=== PATIENT | female | born 1960 | race Caucasian/White ===

== ENCOUNTER → 2018-01-11 16:10 | Outpatient (CLI) | payer BC, SELFPAY ==
--- NOTE | 2018-01-11 16:14 | MM_ITS ---
MM Dig screening mamm BI w/CAD ORDERING PHYSICIAN : Brayan Richmond MD PATIENT AGE: 57 years GENDER: Female COMPARISON: December 2016, April 2014, November 2015. INDICATION: ITS.REASON: SCREENING patient does take female hormones. Also significant weight loss since previous study. Previous stereotactic biopsy right breast. Benign. Noncontributory family history TECHNIQUE: Standard CC and MLO images were initially obtained. Additional bilateral nipple profile cc and MLO views also included R2 CAD reviewed. FINDINGS: Moderately dense breast tissue distributed more anteriorly in this breasts the retroareolar region and extending towards upper-outer quadrant.. There is accentuation of breast of remaining fibroglandular elements when compared to previous studies.. This reflects both the interval weight loss and exogenous hormone effect. However there seems to be a similar architecture RIGHT BREAST: Right breast shows no significant new findings. Again the dense breast tissue the retroareolar region appears fairly similar and architecture although is somewhat diffuse accentuated by today.. On metallic marker clip at the medial retroareolar region from previous stereotactic biopsy noted LEFT BREAST:There is relative increased density at the upper outer quadrant left breast. I question a new ovoid area labeled X on MLO view measuring 12 mm height which could be a cyst. Just anterior to this I question there could be another possible ovoid density labeled Y measuring approximately 10 mm size. The latter could be merely overlapping shadow. However there is enough of a change at both area X and Y here to warrant additional spot views and ultrasound left breast to further evaluate... Again the densities here may be exaggerated by the exogenous hormones effect weight loss. Scattered small benign calcifications left breast IMPRESSION: - There is slight increased density of the breast bilaterally which I suspect mainly reflects reflecting exogenous hormone effect along with interval weight loss. Left breast. Additional area of increased density upper-outer quadrant left breast labeled X and Y..- These areas warrant spot view and ultrasound to further evaluate. Question underlying cyst although Could be merely summation shadow of this now denser appearing breast from exogenous hormone effect. But more significant features here need to be excluded Right breast. No new focal findings. Again the diffuse accentuation of glandular elements likely due mainly to the the exogenous hormones Follow-up in one year recommended. BI-RADS Category: 0 Need Additional Imaging Evaluaiton. RECOMMENDED FOLLOW-UP: IMM - IMMEDIATE FOLLOW-UP RECOMMENDED Spot views and ultrasound left breast recommended (A letter has been sent to the patient regarding results of the study.)
== END ==
PROVIDERS: Family Provider Family Medicine; PCP Family Medicine; Visit Provider Family Medicine
DX: Z12.31 Encounter for screening mammogram for malignant neoplasm of breast (principal)
CPT/HCPCS: 77067

== ENCOUNTER → 2018-01-27 12:54 | Outpatient (CLI) | payer BC, SELFPAY ==
--- NOTE | 2018-01-27 12:59 | US_ITS ---
MM Dig mamm DX unilat LT CAD, US breast LT complete INDICATION: No abnormal screening study ORDERING PHYSICIAN: Brayan Richmond MD PATIENT AGE: 57 years COMPARISON: 01/11/2018 and 01/06/2017 TECHNIQUE: Problem-solving views performed along with left breast ultrasound FINDINGS: There is dense fibroglandular tissue in the retroareolar region and outer aspect of the left breast.. No discrete abnormality noted on the cc view. On the MLO view there is an area of increased density in the superior left breast measuring 1.7 x 1.3 cm corresponding to the abnormality noted on the screening exam. This is not well delineated on the MLO view. Left breast ultrasound: No discrete abnormality is evident in the area of the mammographic abnormality.. There is a 5 mm cyst at 9:00 and there are small nodes in the axilla. IMPRESSION: Asymmetric increased density in the superior left breast seen on the MLO view only with no sonographic correlate. I suspect this is merely overlapping fibroglandular tissue in this patient on exogenous hormones and recent 100 pound weight loss. Please correlate with physical exam. If there is no palpable abnormality then, would recommend a short-term mammographic follow-up in 3 months to confirm stability BI-RADS Category: 3 Benign Finding Short Term Follow-up RECOMMENDED FOLLOW-UP: 3M - 3 MONTH FOLLOWUP (A letter has been sent to the patient regarding results of the study.)
== END ==
PROVIDERS: Family Provider Family Medicine; PCP Family Medicine; Visit Provider Family Medicine
DX: R92.8 Other abnormal and inconclusive findings on diagnostic imaging of breast (principal)
CPT/HCPCS: 76641; 77065

== ENCOUNTER → 2018-05-23 13:09 | Outpatient (CLI) | payer BC, SELFPAY ==
--- NOTE | 2018-05-23 13:12 | US_ITS ---
MM Dig mamm DX unilat LT CAD, US breast LT complete INDICATION: Follow-up abnormal mammogram, 6 month follow-up ORDERING PHYSICIAN: Sarah Ahmadi PATIENT AGE: 57 years COMPARISON: 01/27/2018, 01/11/2018, 01/06/2017 TECHNIQUE: Standard imaging is performed along with problem-solving views and left breast ultrasound. FINDINGS: Dense fibroglandular tissue. Asymmetric density once again noted in the superior left breast. There is also asymmetry in the inferior left breast with some calcifications. These areas do appear to compress out as before. There are coarse calcifications in the retroareolar region. The calcifications have benign appearance but have increased in number compared to an older study of 01/06/2017 Left breast ultrasound: There is a 5 mm cyst at 9:00 and a 3 mm cyst in the retroareolar region. No suspicious nodules are evident. No significant change. IMPRESSION: No convincing evidence of malignancy. There does remain asymmetric density in the upper outer left breast and retroareolar region. No discrete mass apparent. Probably benign calcifications BI-RADS Category: 3 Probably Benign Finding Short Term Follow-up RECOMMENDED FOLLOW-UP: 6M - 6 MONTH FOLLOW-UP (A letter has been sent to the patient regarding results of the study.)
== END ==
PROVIDERS: PCP Nurse Practitioner; Visit Provider Nurse Practitioner
DX: N63.0 Unspecified lump in unspecified breast (principal)
CPT/HCPCS: 76641; 77065

== ENCOUNTER 2020-08-24 16:13 | Emergency (ER) | payer BC, SELFPAY ==
[2020-08-24 16:25] VITALS: BP 158/94; PULSE 81; RESP 16; TEMP 36.8; O2SAT 98; BMI 39.3
[2020-08-24 16:37] LABS: Apearance,Urine Clear (Clear); Bilirubin,Urine Negative (Negative); Blood, Urine Negative (Negative); Color,Urine Yellow (Yellow); Glucose,Urine (UA) Negative (Negative); Ketones,Urine Negative (Negative); Protein,Urine Negative (Negative)
[2020-08-24 16:38] LABS: UTC Leukocyte Esterase,Urine Negative (Negative); UTC Nitrate,Urine Negative (Negative); Urobilinogen,Urine 1 EU/dl (0.2)
--- NOTE | 2020-08-24 16:45 | HMH.EDUTC ---
[facility] [place] Clinical Impression: Flank pain Disposition: Still a Patient Condition on Discharge: Good Referrals: Brayan Richmond MD [Primary Care Provider] - Time of Disposition: 16:53 (sent to ed) Medical Decision Making - [place] Inquiry Pt receiving controlled substance: No Vital Signs: 08/24/20 16:25 Temperature 98.3 F Temperature Source Oral Pulse Rate [Right] 81 Respiratory Rate 16 Blood Pressure [Right Arm] 158/94 H Blood Pressure Mean [Right Arm] 115 Blood Pressure Source [Right Arm] Automatic Cuff Blood Pressure Position [Right Arm] Sitting 02 Sat by Pulse Oximetry 98 Oxygen Delivery Method Room Air - Lab Data Lab Results 08/24/20 16:36: Urine Color Yellow, Urine Appearance Clear, Urine pH 7.0, Ur Specific [place] 1.020, Urine Protein Negative, Urine Glucose (UA) Negative, Urine Ketones Negative, Urine Blood Negative, Urine Nitrate Negative, Urine Bilirubin Negative, Urine Urobilinogen 1, Ur Leukocyte Esterase Negative [facility] [place] H[place] - General Chief complaint: [facility] Stated complaint: pain right side of back Time Seen by Provider: 08/24/20 16:46 Mode of Arrival: Ambulatory Source of Information: Patient Limitations: No Limitations Description of Symptoms (Recalled from Triage Doc. by RN): R lower flank pain. pain comes and goes whether pt is moving or stationary. pt states it feels like she is in labor. pain 9/10 HEENT Symptoms (Recalled from RN notes): No Resp Symptoms (Recalled from RN notes): No Skin Symptoms (Recalled from RN notes): No MS Symptoms (Recalled from RN notes): No Functional Status (Recalled from RN notes): na - History of Present Illness Provider Complaint: 60 yr old female presents for rt flank pain, that comes and goes. Pt states pain started on thurs and the pain is sharp. Pt states she can be fine and then it feels like someone is stabbing her and pain is 10/10 but then it will ease up. pt states she went to the chiroprator thinking it was a muscle but did not help. pt states flank area is not tender to palpate. no known injury. pt states she has taken tylenol,motrin and they did not help. denies burning with voiding - Related Data Home Medications Medication Instructions Recorded Confirmed celecoxib 200 mg capsule 200 mg PO DAILY 01/26/19 07/01/19 escitalopram oxalate 20 mg tablet 20 mg PO DAILY 07/09/18 12/12/18 levothyroxine 125 mcg capsule 125 mcg PO DAILY 07/09/18 12/12/18 Previous Rx's Medication Instructions Recorded amoxicillin 500 mg capsule 500 mg PO Q12H 10 Days #20 cap 12/12/18 Allergies Allergy/AdvReac Type Severity Reaction Status Date / Time Penicillins Allergy Unknown LOCAL Verified 08/24/20 16:36 REACTION TO INJECTION - Worker's Comp Is this a Worker's Comp case?: No [facility] History - Hepatitis A Screen Drug use history?: No High risk sexual behaviors?: No History of sexually transmitted infection?: No Currently employed?: No Childcare worker?: No Do you have indoor plumbing?: Yes Do you have electricity?: Yes Attestation statement:: This patient has been screened for Hepatitis A risk factors. I have reviewed the patient's past medical history: Yes Medical History: Reports:: Anxiety, Depression Other Medical History: Reports: Arthritis, Hypothyroidism Laterality Cases: Right: Total Hip Replacement Other Surgeries: Yes: Appendectomy, Bariatric Surgery, Cholecystectomy, Hysterectomy-Total, Thyroidectomy Amputation: No Fractures: No - Social History Smoking Status: Unknown if ever smoked Alcohol Intake: never Substance Use Type: denies use Occupational Status: retired Housing: house Household Members: family - Psychiatric History Pschychiatric History:: Reports:: Anxiety, Depression Family Hx:: Hypertension ROS Obtained: Yes Systems reviewed as appropriate & no additional complaints - Constitutional Constitutional: Reports system reviewed and no additional complaints, except a
[2020-08-24 16:53] VITALS: BP 157/84; PULSE 77; RESP 18; TEMP 37.1; O2SAT 96; BMI 39.5
--- NOTE | 2020-08-24 16:54 | CT_ITS ---
PROCEDURE: CT ABDOMEN PELVIS WO CON CLINICAL INDICATION: R.flank pain Right flank pain COMPARISON: No exams were available for comparison TECHNIQUE: Axial images obtained with sagittal and coronal reformats. All CT scans at the facility use one or more dose reduction, viz: automated exposure control, ma/kV adjustment per patient size (including targeted exams where dose is matched to indication, i.e. head), or iterative reconstruction technique. FINDINGS: LOWER THORAX: No acute finding ABDOMEN & PELVIS: The liver, spleen, adrenal glands, pancreas, and kidneys have an unremarkable unenhanced appearance. Status post cholecystectomy. Moderate amount retained colonic feces. Prior gastric sleeve surgery. No evidence of appendicitis. There is colonic diverticulosis but no evidence of diverticulitis. Artifact is present from right hip prosthesis. There is mild haziness of the central mesenteric fat with a few scattered small lymph nodes nonspecific. Prior hysterectomy. Prior right hip hemiarthroplasty. Scattered small nodes are present in the inguinal region. No acute bony findings. IMPRESSION: 1. Mild haziness of the central mesenteric fat with a few scattered small lymph nodes nonspecific but could be seen with mesenteric adenitis. 2. Colonic diverticulosis without diverticulitis. Dictated by: Andrew Arreaga MD 08/25/2020 08:59 Andrew Arreaga MD in [place] 08/25/2020 08:59
--- NOTE | 2020-08-24 16:58 | HMH.EDGENADL ---
ED Disposition Clinical Impression: Flank pain, Mesenteric adenitis Disposition: Home, Self-Care Condition on Discharge: Good Prescriptions: Dicyclomine HCl [Bentyl 10mg capsule] 10 mg PO Q8HP PRN #30 cap PRN Reason: abdominal pain Transmission Status: Pending to [facility] metroNIDAZOLE [Metronidazole] 500 mg PO TID #21 tab Transmission Status: Pending to [facility] Ketorolac Tromethamine [Toradol 10mg tablet] 10 mg PO Q6H 5 Days #20 tab Transmission Status: Pending to [facility] Referrals: Brayan Richmond MD [Primary Care Provider] - - Critical Care Critical Care Time: No Attestation: On 08/24/20, the high probability of a clinically significant, sudden or life threatening deterioration of the following system(s) required my full and direct attention, intervention and personal management. The time I documented below is in addition to time spent performing reported procedures but includes the following listed in this critical care notation. Medical Decision Making - Medical Records Medical records reviewed: Yes: I reviewed the patient's medical records. - [place] Inquiry Pt receiving controlled substance: No Vital Signs: 08/24/20 16:25 08/24/20 16:53 08/24/20 17:13 Temperature 98.3 F 98.7 F Temperature Source Oral Oral Pulse Rate [Right] 81 77 66 Respiratory Rate 16 18 16 Blood Pressure [Right Arm] 158/94 H 157/84 H 149/77 H Blood Pressure Mean [Right Arm] 115 108 101 Blood Pressure Source [Right Arm] Automatic Cuff Automatic Cuff Automatic Cuff Blood Pressure Position [Right Arm] Sitting Sitting Supine 02 Sat by Pulse Oximetry 98 96 99 Oxygen Delivery Method Room Air Room Air Room Air 08/24/20 17:14 Temperature Temperature Source Pulse Rate [Right] 65 Respiratory Rate 18 Blood Pressure [Right Arm] 162/83 H Blood Pressure Mean [Right Arm] 109 Blood Pressure Source [Right Arm] Automatic Cuff Blood Pressure Position [Right Arm] Supine 02 Sat by Pulse Oximetry 99 Oxygen Delivery Method Room Air - Lab Data Lab results reviewed: Yes: I reviewed the patient's lab results. Lab Results 08/24/20 16:36: Urine Color Yellow, Urine Appearance Clear, Urine pH 7.0, Ur Specific [place] 1.020, Urine Protein Negative, Urine Glucose (UA) Negative, Urine Ketones Negative, Urine Blood Negative, Urine Nitrate Negative, Urine Bilirubin Negative, Urine Urobilinogen 1, Ur Leukocyte Esterase Negative 08/24/20 16:55: WBC 5.9, RBC 4.61, Hgb 13.6, Hct 41.3, MCV 89.6, MCH 29.4, MCHC 32.8, RDW 13.5, Plt Count 250, MPV 8.3, Neut % (Auto) 49.4, Lymph % (Auto) 41.5, [place] % (Auto) 5.1, Eos % (Auto) 3.2, Baso % (Auto) 0.9, Neut # (Auto) 2.9, Lymph # (Auto) 2.5, [place] # (Auto) 0.3, Eos # (Auto) 0.2, Baso # (Auto) 0.1 08/24/20 16:55: Sodium 139, Potassium 4.2, Chloride 108 H, Carbon Dioxide 28, Anion Gap 7.2, BUN 21 H, Creatinine 0.90, Estimated Creat Clear 91, Estimated GFR 64, Est GFR ( Amer) 77, Glucose 103 H, Calcium 9.3 Result diagrams: 08/24/20 16:55 08/24/20 16:55 Orders (Tests/Meds): ED MEDICATIONS Discontinued Medications Generic Name Dose Route Start Last Admin Trade Name Freq PRN Reason Stop Dose Admin Ketorolac Tromethamine 60 mg 08/24/20 16:55 08/24/20 17:16 Ketorolac 60mg/2ml Vial IM 08/24/20 16:56 Not Given ONCE ONE Ketorolac Tromethamine 30 mg 08/24/20 16:58 08/24/20 17:15 Ketorolac 30mg/Ml Vial IV 08/24/20 16:59 30 mg ONCE ONE Administration Orphenadrine Citrate 60 mg 08/24/20 16:55 08/24/20 17:14 Orphenadrine Citrate 60mg/2ml Vial IV 08/24/20 16:56 60 mg ONCE ONE Administration ORDERS Category Date Time Status CT abdomen pelvis wo con Stat Cat Scan 08/24/20 16:54 Taken - CT Data CT Scan: Abdomen, Pelvis Time Received: 18:[address] Reviewed: Yes: I have reviewed the patient's CT results, I have viewed the radiologist's interpretation Preliminary Findings: Abnormal Findings Narrative: multiple subcentimeter mesente
[2020-08-24 17:06] LABS: Basophils # 0.1 K/mm3 (0-0.2); Basophils % 0.9 % (0.1-2.0); Eosinophils # 0.2 K/mm3 (0.0-0.4); Eosinophils % 3.2 % (0.1-12.0); Hematocrit 41.3 % (37.0-47.0); Hemoglobin 13.6 g/dL (12.2-16.2); Lymphocytes # 2.5 K/mm3 (0.7-4.5); Lymphocytes % 41.5 % (10-50); Mean Corpuscular HGB Conc 32.8 g/dL (31.8-35.4); Mean Corpuscular Hemoglobin 29.4 pg (27.0-31.2); Mean Corpuscular Volume 89.6 fl (81-99); Mean Platelet Volume 8.3 fl (7.4-10.4); Monocytes # 0.3 K/mm3 (0.1-1.0); Monocytes % 5.1 % (1.7-9.3); Neutrophils # 2.9 K/mm3 (1.8-7.8); Neutrophils % 49.4 % (37.0-80.0); Platelet Count 250 K/mm3 (142-424); Red Blood Count 4.61 M/mm3 (4.20-5.40); Red Cell Distribution Width 13.5 % (11.5-17.5); White Blood Count 5.9 K/mm3 (4.8-10.8)
[2020-08-24 17:11] LABS: Chloride 108 mmol/L (98-107)
[2020-08-24 17:12] LABS: Potassium 4.2 mmoL/L (3.5-5.1); Sodium 139 mmol/L (136-145)
[2020-08-24 17:13] VITALS: BP 149/77; PULSE 66; RESP 16; O2SAT 99
[2020-08-24 17:14] VITALS: BP 162/83; PULSE 65; RESP 18; O2SAT 99
[2020-08-24 17:14] LABS: Blood Urea Nitrogen 21 mg/dl (7-17); Creatinine Clearance Estimated 91 mL/min (50-200); Estimated Glomerular Filt Rate 64 ml/min (>60); GFR (African American) 77 ML/MIN (>60)
[2020-08-24 17:15] LABS: Anion Gap 7.2 mEq/L (5-15); Calcium 9.3 mg/dl (8.4-10.2); Carbon Dioxide 28 mmol/L (22.0-30.0); Glucose 103 mg/dl (74-100)
[2020-08-24 18:49] VITALS: BP 133/86; PULSE 61; RESP 16; TEMP 37.1; O2SAT 96
== END 2020-08-24 18:49 | disposition home or self-care (01) ==
LOC: UTC 16:19 → ER 16:47
PROVIDERS: Nurse Practitioner Family; Emergency Provider Emergency Medicine; PCP Family Medicine
DX: I88.0 Nonspecific mesenteric lymphadenitis (principal); F41.8 Other specified anxiety disorders; E03.9 Hypothyroidism, unspecified; Z88.0 Allergy status to penicillin; Z96.641 Presence of right artificial hip joint
CPT/HCPCS: 74176; 80048; 81003; 85025; 96374; 96375; 99283; J2405

== ENCOUNTER → 2020-11-06 08:22 | Outpatient (CLI) | payer BC, SELFPAY ==
--- NOTE | 2020-11-06 08:24 | MM_ITS ---
PROCEDURE INFORMATION: Exam: MG Screening 3D Mammography Exam date and time: 11/06/2020 8:24 AM Age: 60 years old Clinical indication: Screening mammogram TECHNIQUE: Imaging protocol: Screening tomosynthesis and 2D mammography including computer-aided detection (CAD) when performed. COMPARISON: 1. MG DXLT MM Dig mamm DX unilat LT CAD 05/23/2018 1:49 PM 2. MG DXLT MM Dig mamm DX unilat LT CAD 01/27/2018 1:18 PM 3. MG SCBI MM Dig screening mamm BI w/CAD 01/11/2018 4:16 PM 4. MG DMSB DIG MAMM-SCREEN JOURDAN W/CAD 01/06/2017 3:44 PM FINDINGS: MAMMOGRAPHY: Breast composition: The breast tissue is heterogeneously dense, which may obscure small masses. Mass: None. Architectural distortion: No new or suspicious architectural distortion. Calcifications: No new or suspicious calcifications are present Asymmetric density: No new or suspicious asymmetric density is present Skin thickening: None. Axillary adenopathy: None. IMPRESSION: No mammographic evidence of malignancy. Recommend annual screening mammography unless otherwise clinically indicated. ASSESSMENT: BI-RADS category 1: Negative
== END ==
PROVIDERS: PCP Family Medicine; Visit Provider Family Medicine
DX: Z12.31 Encounter for screening mammogram for malignant neoplasm of breast (principal)
CPT/HCPCS: 77063; 77067

== ENCOUNTER → 2022-07-25 08:00 | Outpatient (CLI) | payer BC, SELFPAY ==
[2022-07-25 08:11] LABS: Microscopic, Urine URINE MICROSCOPIC (MICROSCOPIC)
[2022-07-25 09:57] LABS: Appearance,Urine CLEAR (Clear); Basophils # 0.1 K/mm3 (0-0.2); Basophils % 1.5 % (0.1-2.0); Bilirubin,Urine Negative (Negative); Blood, Urine Negative (Negative); Color,Urine YELLOW (Yellow); Eosinophils # 0.2 K/mm3 (0.0-0.4); Eosinophils % 4.2 % (0.1-12.0); Glucose,Urine (UA) Negative (Negative); Hemoglobin 13.8 g/dL (12.2-16.2); Ketones,Urine Negative (Negative); Leukocyte Esterase,Urine TRACE (Negative); Lymphocytes # 1.8 K/mm3 (0.7-4.5); Lymphocytes % 37.1 % (10-50); Mean Corpuscular HGB Conc 32.2 g/dL (31.8-35.4); Mean Corpuscular Hemoglobin 29.5 pg (27.0-31.2); Mean Corpuscular Volume 91.3 fl (81-99); Mean Platelet Volume 8.2 fl (7.4-10.4); Monocytes # 0.3 K/mm3 (0.1-1.0); Monocytes % 5.2 % (1.7-9.3); Neutrophils # 2.5 K/mm3 (1.8-7.8); Nitrate,Urine Negative (Negative); PH,Urine 6.5 (5.0-8.5); Platelet Count 277 K/mm3 (142-424); Protein,Urine Negative (Negative); Urobilinogen,Urine 0.2 EU/dl (0.2); White Blood Count 4.8 K/mm3 (4.8-10.8)
[2022-07-25 10:12] LABS: Bacteria,Urine Trace /lpf
[2022-07-25 10:16] LABS: Hemoglobin A1C 5.1 % (4.0-6.0)
[2022-07-25 10:17] LABS: Alanine Aminotransferase 19 U/L (12-78); Albumin Level 4.2 g/dl (3.5-5.0); Albumin/Globulin Ratio 1.7 (1.1-1.8); Alkaline Phosphatase 60 U/L (38-126); Anion Gap 7.1 mEq/L (5-15); Aspartate Amino Transferase 22 U/L (14-36); Bilirubin,Total 0.5 mg/dl (0.2-1.3); Blood Urea Nitrogen 20 mg/dl (7-17); Calcium 8.8 mg/dl (8.4-10.2); Carbon Dioxide 31 mmol/L (22.0-30.0); Chloride 106 mmol/L (98-107); Chol/HDL Ratio 3.7 (1-3.5); Cholesterol 170 mg/dl (140-200); Estimated Glomerular Filt Rate 101 ml/min (>60); GFR (African American) 122 ML/MIN (>60); Globulin 2.5 g/dL (1.3-3.2); Glucose 86 mg/dl (74-100); HDL Cholesterol 46 mg/dl (40-60); Potassium 4.1 mmoL/L (3.5-5.1); Sodium 140 mmol/L (136-145); Total Protein,Serum 6.7 g/dl (6.3-8.2); Triglycerides 109 mg/dl (30-150); VLDL Cholesterol 22 mg/dL (0-40)
[2022-07-25 10:20] LABS: Erythrocyte Sedimentation Rate 14 mm/hr (0-30)
[2022-07-25 10:32] LABS: Direct LDL Cholesterol 90.69 mg/dL (100-129)
[2022-07-25 10:48] LABS: Thyroid Stimulating Hormone 1.39 uIU/mL (0.465-4.68)
== END ==
PROVIDERS: PCP Nurse Practitioner Family; Visit Provider Nurse Practitioner Family
DX: Z00.00 Encounter for general adult medical examination without abnormal findings (principal); E03.9 Hypothyroidism, unspecified; Z13.1 Encounter for screening for diabetes mellitus; M19.90 Unspecified osteoarthritis, unspecified site; E66.9 Obesity, unspecified; Z68.41 Body mass index [BMI] 40.0-44.9, adult; Z13.220 Encounter for screening for lipoid disorders; Z76.89 Persons encountering health services in other specified circumstances; Z79.899 Other long term (current) drug therapy
CPT/HCPCS: 36415; 80053; 80061; 81001; 83036; 84443; 85025; 85651; 86140

== ENCOUNTER → 2022-07-30 14:50 | Outpatient (CLI) | payer BC, SELFPAY ==
--- NOTE | 2022-07-30 14:53 | CA_ITS ---
APPROVED REPORT EXAM: Comprehensive 2D, Doppler, and color-flow Echocardiogram [employer]: Racquel Ureña RVT Ht: 5 ft 2 in Wt: 223lbs BSA: 2.00 BP: 120/80 mmHg Indications: SOA,FAY,PRE-OP,OBESITY TDS-PT BODY HABITUS 2D Dimensions LVOT 2.24 cm (M/F) 1.5-2.5 LA Volume 20.40 mL LA Volume Index 10.20 mL/m2 (M/F) 16-34 M-Mode Dimensions RVDd 2.93 cm (0.9-2.6) LA Diam 3.62 cm (1.9-4.0) LVDd 4.85 cm (3.5-5.7) Ao Diam 3.71 cm (2.0-3.7) LVDs 3.44 cm (3.5-5.7) IVSd 1.32 cm (0.6-1.1) PWd 0.60 cm (0.6-1.1) EF (Teich) 55.70% FS 29.10% EDV (Teich) 110.20 mL TAPSE 2.04 (<1.7) ESV (Teich) 48.80 mL LV Diastology E Decel Time 270.00 (160-240 msec) E/A Ratio 0.8 MED E' 5.70 (< 7 cm/sec) E'/MED E' Ratio 13.18 (>14) LAT E' 9.10 (<10 cm/sec) E/LAT E' Ratio 8.25 (>14) Aortic Valve AO Peak GR. 6.10 mmHg Mitral Valve MV E Max Osvaldo. 75.00 (40-130 cm/s) MV A Velocity 99.00 (40-130 cm/s) E/A Ratio 0.76 MV Decel. Time 270.00 (160-240 ms) MV PHT 79.00 ms Pulmonary Valve PV Peak Velocity 53.00 (50-150 cm/s) Tricuspid Valve TR P. Velocity 254.00 cm/s RAP Estimate 10.00 mmHg RVSP 35.80 mmHg Left Ventricle Left atrium is mildly enlarged, left ventricle is normal size mild concentric left ventricular hypertrophy, estimated ejection fraction 55% with no regional wall motion abnormality, grade 1 diastolic dysfunction seen without tissue Doppler evidence of raise left atrial pressure. Right Ventricle Right atrium and right ventricle are mildly enlarged with normal contractility. Aortic Valve Aortic valve is minimally thickened and calcified without aortic stenosis or aortic insufficiency. Mitral Valve Mitral valve is grossly normal, there is trace mitral regurgitation. Tricuspid Valve Tricuspid valve grossly normal, there is trace tricuspid regurgitation, calculated right ventricular systolic pressure 36 mmHg. Pulmonic Valve Pulmonic valve is poorly visualized. Great Vessels Aortic root is normal size. Inferior vena cava is poorly visualized. Pericardium No significant pericardial effusion noted. Conclusion 1. Mild biatrial enlargement, normal left ventricular size, estimated ejection fraction 55% with no regional wall motion abnormality, grade 1 diastolic dysfunction seen without tissue Doppler evidence of raise left atrial pressure. 2. Mildly enlarged right ventricle with normal contractility. 3. Thickened and calcified aortic valve without aortic stenosis aortic insufficiency. 4. Trace mitral and tricuspid regurgitation, calculated right ventricular systolic pressure 36 mmHg. 5. No significant pericardial effusion noted. 6. Inferior vena cava is poorly visualized. Electronically signed by : Kee Kearns MD 07/31/2022 11:24:50
== END ==
LOC: RT 14:53
PROVIDERS: PCP Nurse Practitioner Family; Visit Provider Nurse Practitioner Family
DX: G47.33 Obstructive sleep apnea (adult) (pediatric) (principal)
CPT/HCPCS: 93306

== ENCOUNTER → 2022-08-05 08:05 | Outpatient (CLI) | payer BC, SELFPAY ==
--- NOTE | 2022-08-05 08:05 | XR_ITS ---
FINAL REPORT TECHNIQUE: Bone densitometry calculations of the lumbar spine, right forearm and left hip were obtained. CLINICAL HISTORY: screening FINDINGS: DEXA BONE DENSITY AXIAL SKELETON Using L1-4, the bone mineral density of the spine is 0.943 g/cm2, corresponding to T-score of -0.9. Using the left hip, the bone mineral density of the femoral neck is 0.633 g/cm2, corresponding to a T-score of -1.9. Using the right forearm, the bone mineral density of the distal 1/3 is 0.497 g/cm2, corresponding to a T-score of -3.3. NOTE: T-score: Standard deviation compared with peak bone mass of young adult mean. *Following the recommendations of the International Society of Bone Densitometry, classification of hip BMD is based on the lower of two T-scores; total hip or femoral neck. IMPRESSION: Diminished bone mineral density of the distal 1/3 of the right forearm consistent with osteoporosis. Diminished bone mineral density of the left hip consistent with osteopenia. FRAX 10 year fracture risk is 1.1% for a hip fracture and 8.8% for a major osteoporotic fracture. Normal bone mineral density of the lumbar spine. Reviewed, Interpreted and Dictated by Jeet Gale III, MD Transcribed by Teressa Yu Authenticated and [facility]
--- NOTE | 2022-08-05 08:05 | MM_ITS ---
PROCEDURE INFORMATION: Exam: MG Bilateral Screening 3D Mammography Exam date and time: 08/05/2022 8:06 AM Age: 62 years old Clinical indication: Screening mammogram TECHNIQUE: Imaging protocol: Bilateral Screening tomosynthesis and 2D mammography including computer-aided detection (CAD) when performed. COMPARISON: 1. MG MM DIG SCREENING MAMM BI W/CAD 11/06/2020 8:23 AM 2. MG DXLT MM Dig mamm DX unilat LT CAD 05/23/2018 1:49 PM 3. MG DXLT MM Dig mamm DX unilat LT CAD 01/27/2018 1:18 PM 4. MG SCBI MM Dig screening mamm BI w/CAD 01/11/2018 4:16 PM FINDINGS: MAMMOGRAPHY: Breast composition: There are scattered areas of fibroglandular density. Mass: None. Architectural distortion: No new or suspicious architectural distortion. Calcifications: No new or suspicious calcifications are present Asymmetric density: No new or suspicious asymmetric density is present Skin thickening: None. Axillary adenopathy: None. IMPRESSION: No mammographic evidence of malignancy. Recommend annual screening mammography unless otherwise clinically indicated. ASSESSMENT: BI-RADS category 1: Negative
== END ==
PROVIDERS: PCP Nurse Practitioner Family; Visit Provider Nurse Practitioner Family
DX: Z12.31 Encounter for screening mammogram for malignant neoplasm of breast (principal); Z78.0 Asymptomatic menopausal state; Z13.820 Encounter for screening for osteoporosis
CPT/HCPCS: 77063; 77067; 77080

== ENCOUNTER → 2022-08-20 06:11 | Outpatient (CLI) | payer BC, SELFPAY ==
--- NOTE | 2022-08-20 | CA_ITS ---
APPROVED REPORT Exam: Pharmacologic Technologist: Raquel Garcia, Ht: 5 ft 2 in Wt: 228 lbs BSA: 2.02 m2 HR: 64 bpm BP: 138/73 mmHg Rhythm: NSR, normal Medical History Medications: Levothyroxine,,,,, Lexapro,,,,, Tylenol,,,,, CeleBREX,,,,, Contrave,,,,, Stress Test Details Test: LEXISCAN HR Resting HR: 69 bpm Max Heart Rate (APMHR): 157.917355 bpm Max HR Achieved: 102 bpm Target HR (85% APMHR): 133.461377 bpm % of APMHR: 64.97 Recovery HR: 84 bpm BP Resting BP: 138/73 mmHg Max BP: 138/73 mmHg Recovery BP: 118.0/63.0 mmHg ECG Resting ECG: NSR, normal Clinical Exercise duration: 04:00 min Highest Stage Achieved: Exercise capacity: 1.0 METs Stress ECG Conclusion During lexiscan pt experinced mild SOA, no CP noted. No arrhythmias noted. No significant ST changes. Unremarkable lexiscan stress. Myoview images reported separately. Test Summary REST . . . . . . . Sitting REST 04:52 . . 69 . 138/ 73 . . Stage 1 01:00 . . 93 . . . . Stage 2 01:00 . . 99 . . . . Stage 3 01:00 . . 94 . 130/ 65 . . Stage 4 01:00 . . 93 . 126/ 61 . Stop exercise at 04:00 RECOVERY 01:00 . . 86 . . . . RECOVERY 02:00 . . 84 . 118/ 63 . . RECOVERY 03:00 . . 82 . 127/ 63 . . RECOVERY 03:17 . . 84 . 127/ 63 . . Electronically signed by : Kee Kearns MD 08/21/2022 08:48:39
--- NOTE | 2022-08-20 06:11 | CT_ITS ---
FINAL REPORT TECHNIQUE: Thin section axial CT images of the chest were obtained with contrast. 3D reformatted images were also obtained. This study was performed with techniques to keep radiation doses as low as reasonably achievable (ALARA). Individualized dose reduction techniques using automated exposure control or adjustment of mA and/or kV according to the patient''s size were employed. CLINICAL HISTORY: abnormal echo, enlarged Rt side of heart. 0 chest complaints. Nonsmoker. COMPARISON: None FINDINGS: There is no evidence of pulmonary embolism. There is no evidence of thoracic aortic aneurysm or dissection. There is no evidence of mediastinal or hilar mass or adenopathy. There are borderline sized bilateral axillary lymph nodes of uncertain significance, favor reactive. There is a 5 mm right lower lobe noncalcified nodule. There are several other smaller bilateral pulmonary nodules. No localized inflammatory process is seen within the lungs. Limited images of the upper abdomen demonstrate postoperative changes from gastric sleeve. There are postoperative changes from cholecystectomy. IMPRESSION: No evidence of pulmonary embolism. Small lung nodules, nonspecific. Consider follow-up chest CT in 12 months. Reviewed, Interpreted and Dictated by Jeet Gale III, MD Transcribed by Ale Dash Authenticated and [facility]
--- NOTE | 2022-08-20 06:11 | NM_ITS ---
APPROVED REPORT Exam: Nuclear Stress Test Indication: chest pain..short of breath..palpitations..fatigue Patient Location: Outpatient Stress Tech: Raquel [place] Tech:SANDRA Ch RT(R)(N) Ht: 5 ft 2 in Wt: 227 lbs Bra Size: 2x HR: 69 bpm BP: 138/73 mmHg BSA: 2.02 m2 TID: 1.30 BMI: 41.5 History: chest pain..short of breath..palpitations..fatigue Procedure: Patient received 0.4 mg of intravenous Lexiscan, resting heart rate 69 bpm, resting blood pressure 138/73 mmHg, with Lexiscan maximum heart rate achieved was 102 bpm which is Less than 85 % of the maximum predicted heart rate and blood pressure was 138/73 mmHg. With Lexiscan, patient denied any complaint of chest pain. Electrocardiogram Resting electrocardiogram shows sinus rhythm nonspecific ST-T changes, with Lexiscan less than 1.[address] segment depression noted from the baseline EKG. The EKG portion of the Lexiscan is nondiagnostic. Cardiac Stress and Resting SPECT Images: Cardiac Stress and Resting SPECT images were obtained using technetium 99m Myoview 31.0 mCi stress and 10.23 mCi at rest. Gated SPECT analysis of segmental wall motion and calculation of the ejection fraction also done. Prone images were also obtained. Cardiac stress and rest SPECT and show mild fixed defect in the anterior wall with normal contractility in the gated SPECT is likely secondary to soft tissue attenuation, no reversible ischemia, there is transient ischemic dilatation of the left ventricle noted which appears to be artifactual. Computer derived ejection fraction is 54% with no regional wall motion abnormality, right ventricle is normal size and contractility. Conclusion: 1. The EKG portion of the Lexiscan is nondiagnostic. 2. No obvious scintigraphic evidence of reversible ischemia seen, a fixed defect in the anterior wall is likely secondary to soft tissue attenuation. Computer derived ejection fraction is 54% with no regional wall motion abnormality, right ventricle is normal size and contractility. 3. Likely normal Lexiscan Myoview study. Electronically signed by : Kee Kearns MD 08/21/2022 08:50:55
== END ==
LOC: RAD 06:11
PROVIDERS: PCP Nurse Practitioner Family; Visit Provider Nurse Practitioner Family
DX: R06.00 Dyspnea, unspecified (principal); R93.1 Abnormal findings on diagnostic imaging of heart and coronary circulation
CPT/HCPCS: 71275; 78452; 93017; A9502; J2785; Q9967

== ENCOUNTER → 2022-11-10 07:52 | Outpatient (CLI) | payer BC, SELFPAY | PROVIDERS: PCP Nurse Practitioner Family; Visit Provider Internal Medicine Pulmonary Disease | DX: R06.02 Shortness of breath (principal); R91.8 Other nonspecific abnormal finding of lung field | CPT/HCPCS: 94060; 94618; 94726; 94729; 94762 ==

== ENCOUNTER 2022-11-23 15:12 | Emergency (ER) | payer BC, SELFPAY ==
[2022-11-23] VITALS (8 sets, daily range): BP systolic 132–150; BP diastolic 72–83; PULSE 64–71; RESP 14–19; TEMP 36.7–37; O2SAT 96–99; BMI 39.6
--- NOTE | 2022-11-23 15:15 | ECG_ITS ---
APPROVED REPORT Exam: Resting ECG HR:79 bpm ECG Measurements Heart Rate 79 AXES LA 149 P 31 QRSd 102 QRS 37 QT 370 T 58 QTc 405 Conclusion SINUS RHYTHM NONSPECIFIC ST & T-WAVE ABNORMALITY BORDERLINE ECG UNCONFIRMED REPORT Electronically signed by : Brayan Workman MD 11/24/2022 20:10:14
--- NOTE | 2022-11-23 15:39 | XR_ITS ---
FINAL REPORT CLINICAL HISTORY: Precordial chest pain COMPARISON: [facility] CT PE 08/20/2022 FINDINGS: Two views of the chest were obtained. The heart size and pulmonary vascularity are within normal limits. The mediastinum is normal. No acute pulmonary abnormality is identified. There is no pneumothorax. The bony thorax is intact. IMPRESSION: No active cardiopulmonary disease. Reviewed, Interpreted and Dictated by Jeet Gale III, MD Transcribed by Ale Dash Authenticated and [facility]
[2022-11-23 16:04] LABS: Basophils % 0.4 % (0.1-2.0); Chloride 102 mmol/L (98-107); Eosinophils # 0.3 K/mm3 (0.0-0.4); Eosinophils % 5.7 % (0.1-12.0); Hematocrit 32.6 % (37.0-47.0); Hemoglobin 10.7 g/dL (12.2-16.2); Lymphocytes # 0.9 K/mm3 (0.7-4.5); Lymphocytes % 18.7 % (10-50); Mean Corpuscular HGB Conc 32.8 g/dL (31.8-35.4); Mean Corpuscular Hemoglobin 29.9 pg (27.0-31.2); Mean Corpuscular Volume 91.2 fl (81-99); Mean Platelet Volume 8.6 fl (7.4-10.4); Monocytes # 0.3 K/mm3 (0.1-1.0); Monocytes % 6.3 % (1.7-9.3); Neutrophils # 3.5 K/mm3 (1.8-7.8); Platelet Count 234 K/mm3 (142-424); Red Blood Count 3.58 M/mm3 (4.20-5.40); Red Cell Distribution Width 13.2 % (11.5-17.5); Sodium 139 mmol/L (136-145)
[2022-11-23 16:07] LABS: Blood Urea Nitrogen 10 mg/dl (7-17); Creatinine Clearance Estimated 89 mL/min (50-200); Estimated Glomerular Filt Rate 101 ml/min (>60); GFR (African American) 122 ML/MIN (>60)
[2022-11-23 16:08] LABS: Anion Gap 10.9 mEq/L (5-15); Calcium 8.3 mg/dl (8.4-10.2); Carbon Dioxide 29 mmol/L (22.0-30.0); Glucose 106 mg/dl (74-100)
--- NOTE | 2022-11-23 16:08 | HMH.EDGENADL ---
Discharge Plan Disposition Patient Disposition: Home, Self-Care Condition: Fair Chief Complaint: Chest Pain Prescriptions Prescriptions: No Action celecoxib [Celebrex] 200 mg capsule 200 mg PO DAILY acetaminophen [Tylenol Arthritis Pain] 650 mg tablet extended release 650 mg PO Q8H furosemide [Lasix] 20 mg tablet 20 mg PO DAILY Qty: 30 5RF cholecalciferol (vitamin D3) 10 mcg (400 unit) tablet 800 unit PO DAILY calcium carbonate [Calcium 600] 600 mg calcium (1,500 mg) tablet 1,200 mg PO DAILY escitalopram oxalate [Lexapro] 20 mg tablet 20 mg PO DAILY Qty: 90 1RF levothyroxine 125 mcg tablet 125 mcg PO DAILY Qty: 90 1RF acyclovir 400 mg tablet 400 mg PO BID Qty: 60 0RF Contrave 8-90 mg tablet extended release See Rx Instructions .ROUTE .COMPLEX Qty: 120 0RF Dose Instruction: TAKE 2 TABLETS BY MOUTH TWICE DAILY Rx Instructions: TAKE 2 TABLETS BY MOUTH TWICE DAILY Referrals Follow up/Referrals: Rosalva Horn APRN [Primary Care Provider] - See instructions Clinical Impressions Clinical Impression: Chest pain, Acute hypokalemia Instructions Patient Instructions: DI for Atypical Chest Pain Discharge ED Provider: Satinder Lomeli General Adult HPI General Chief complaint: Chest Pain Stated complaint: chest pain Time Seen by Provider: 11/23/22 16:08 Mode of Arrival: Wheelchair Source of Information: Patient Limitations: No Limitations Description of Symptoms (Recalled from ER Triage Doc. by RN): pt to the ED from her PT appointment complaining on left anterior chest pain that raidiates down her arm and sudden on set of SOB. History of Present Illness HPI narrative: This 62-year-old female who just recently had left hip surgery and presents today with an episode of acute onset of shortness of breath as well as left-sided chest pain. Patient said the pain in her chest was worse with deep inspiration. Patient also complaining of swelling in her left proximal thigh. No fevers or chills no cough or hemoptysis. Related Data Home Medications Medication Instructions Recorded Confirmed celecoxib 200 mg capsule (Celebrex) 200 mg PO DAILY 07/09/18 11/10/22 acetaminophen 650 mg 650 mg PO Q8H 08/25/22 11/10/22 tablet,extended release (Tylenol Arthritis Pain) calcium carbonate 600 mg calcium 1,200 mg PO DAILY osteoporosis 08/25/22 11/10/22 (1,500 mg) tablet (Calcium) cholecalciferol (vitamin D3) 10 800 unit PO DAILY osteoporosis 08/25/22 11/10/22 mcg (400 unit) tablet Previous Rx's Medication Instructions Recorded escitalopram oxalate 20 mg tablet 20 mg PO DAILY #90 tabs 07/28/22 (Lexapro) levothyroxine 125 mcg tablet 125 mcg PO DAILY #90 tabs 07/28/22 furosemide 20 mg tablet (Lasix) 20 mg PO DAILY #30 tabs 08/13/22 acyclovir 400 mg tablet 400 mg PO BID #60 tabs 10/31/22 naltrexone 8 mg-bupropion 90 mg See Rx Instructions .Route 11/23/22 tablet,extended release (Contrave) .COMPLEX #120 tabs Allergies Allergy/AdvReac Type Severity Reaction Status Date / Time Penicillins Allergy Unknown LOCAL Verified 11/10/22 10:23 REACTION TO INJECTION [facility] Disclaimer: The information contained in this section may have been updated after the patient was seen, as this information can be updated by other users. Medical History Arthritis BMI 40.0-44.9, adult Conjunctivitis Dyspnea Dyspnea on exertion Encounter for screening for osteoporosis Establishing care with new doctor, encounter for Flank pain History of asthma Hypothyroid Mesenteric adenitis MRSA infection 2015 abdomen Multiple pulmonary nodules Overactive bladder Rheumatic fever Right heart enlargement Right tibial fracture repaired 2011 Scarlet fever Shortness of breath Sleep apnea Sleep apnea URI (upper respiratory infection) Surgical History
[2022-11-23 16:09] LABS: Potassium 2.9 mmoL/L (3.5-5.1)
[2022-11-23 16:20] LABS: Troponin I < 0.01 ng/ml (0.00-0.034)
[2022-11-23 17:59] LABS: D-Dimer 1.54 ug/mL (0.0-0.5)
[2022-11-23 18:00] LABS: INR 0.93 (0.9-1.1); Prothrombin Time 10.1 seconds (10.1-12.5)
--- NOTE | 2022-11-23 18:08 | CT_ITS ---
PROCEDURE INFORMATION: Exam: CTA Chest With Contrast Exam date and time: 11/23/2022 6:27 PM Age: 62 years old Clinical indication: Shortness of breath; Patient HX: PT just had left hip replaced 4 days ago and today at SOB and left arm pain; Additional info: Post op, SOB TECHNIQUE: Imaging protocol: Computed tomographic angiography of the chest with contrast. Exam focused on the arteries. 3D rendering (Not supervised by radiologist): MIP and/or 3D reconstructed images were created by the technologist. Radiation optimization: All CT scans at this facility use at least one of these dose optimization techniques: automated exposure control; mA and/or kV adjustment per patient size (includes targeted exams where dose is matched to clinical indication); or iterative reconstruction. Contrast material: ISOVUE; Contrast volume: 70 ml; Contrast route: INTRAVENOUS (IV); REPORTING DATA: Count of CT and Cardiac NM exams in prior 12 months: This patient has received [address] and 0 known cardiac nuclear medicine studies in the 12 months prior to the current study. COMPARISON: CT ANGIO CHEST PE PROTOCOL 08/20/2022 9:18 AM FINDINGS: Pulmonary arteries: Normal. No pulmonary emboli. Aorta: Regions of atherosclerotic vascular calcification involving the aortic arch. Lungs: Previously demonstrated juxtapleural 5 mm noncalcified pulmonary nodule faintly identified on the current study secondary to motion artifact. Pleural spaces: Unremarkable. No pneumothorax. No pleural effusion. Heart: Unremarkable. No cardiomegaly. No pericardial effusion. Coronary arteries: Coronary artery calcification. Lymph nodes: Unremarkable. No enlarged lymph nodes. Gallbladder and bile ducts: Cholecystectomy. Stomach and bowel: The gastric sleeve. Colonic diverticulosis. No evidence of diverticulitis.. Bones/joints: Unremarkable. No acute fracture. Soft tissues: Unremarkable. Other findings: Evidence of prior granulomatous disease. IMPRESSION: 1. No evidence of acute intrapulmonary abnormality. 2. Evidence of prior granulomatous disease. 3. Persistent noncalcified juxtapleural 5 mm pulmonary nodule. Findings suboptimally visualized secondary to motion artifact.
[2022-11-23 20:10] LABS: Troponin I < 0.01 ng/ml (0.00-0.034)
== END 2022-11-23 20:26 | disposition home or self-care (01) ==
PROVIDERS: Emergency Provider Emergency Medicine; PCP Nurse Practitioner Family
DX: R07.9 Chest pain, unspecified (principal); E87.6 Hypokalemia; M79.603 Pain in arm, unspecified; R06.02 Shortness of breath; E03.9 Hypothyroidism, unspecified; J45.909 Unspecified asthma, uncomplicated; I51.7 Cardiomegaly
CPT/HCPCS: 36415; 71045; 71275; 80048; 84484; 85025; 85378; 85610; 85730; 93005; 93041; 99285; Q9967

== ENCOUNTER → 2022-11-25 08:23 | Outpatient (CLI) | payer BC, SELFPAY ==
[2022-11-25 09:21] LABS: Basophils % 0.3 % (0.1-2.0); Eosinophils # 0.3 K/mm3 (0.0-0.4); Eosinophils % 7.8 % (0.1-12.0); Hematocrit 31.7 % (37.0-47.0); Hemoglobin 10.4 g/dL (12.2-16.2); Mean Corpuscular HGB Conc 32.7 g/dL (31.8-35.4); Mean Corpuscular Hemoglobin 29.8 pg (27.0-31.2); Mean Platelet Volume 8.5 fl (7.4-10.4); Monocytes # 0.3 K/mm3 (0.1-1.0); Monocytes % 5.7 % (1.7-9.3); Neutrophils # 2.7 K/mm3 (1.8-7.8); Neutrophils % 62.2 % (37.0-80.0); Platelet Count 265 K/mm3 (142-424); Red Blood Count 3.48 M/mm3 (4.20-5.40); Red Cell Distribution Width 13.3 % (11.5-17.5); White Blood Count 4.3 K/mm3 (4.8-10.8)
[2022-11-25 09:42] LABS: Alanine Aminotransferase 14 U/L (12-78); Albumin Level 3.2 g/dl (3.5-5.0); Albumin/Globulin Ratio 1.5 (1.1-1.8); Alkaline Phosphatase 65 U/L (38-126); Anion Gap 12.6 mEq/L (5-15); Aspartate Amino Transferase 20 U/L (14-36); Bilirubin,Total 0.3 mg/dl (0.2-1.3); Blood Urea Nitrogen 9 mg/dl (7-17); Calcium 8.2 mg/dl (8.4-10.2); Carbon Dioxide 29 mmol/L (22.0-30.0); Chloride 101 mmol/L (98-107); Estimated Glomerular Filt Rate 101 ml/min (>60); GFR (African American) 122 ML/MIN (>60); Globulin 2.2 g/dL (1.3-3.2); Glucose 88 mg/dl (74-100); Potassium 3.6 mmoL/L (3.5-5.1); Sodium 139 mmol/L (136-145); Total Protein,Serum 5.4 g/dl (6.3-8.2)
== END ==
PROVIDERS: PCP Nurse Practitioner Family; Visit Provider Nurse Practitioner Family
DX: E87.6 Hypokalemia (principal); D64.9 Anemia, unspecified
CPT/HCPCS: 36415; 80053; 83735; 85025

== ENCOUNTER → 2022-12-30 09:58 | Outpatient (CLI) | payer BC, SELFPAY ==
[2022-12-30 10:25] LABS: Basophils % 0.3 % (0.1-2.0); Eosinophils # 0.5 K/mm3 (0.0-0.4); Eosinophils % 9.1 % (0.1-12.0); Hematocrit 40.5 % (37.0-47.0); Hemoglobin 12.8 g/dL (12.2-16.2); Lymphocytes # 1.5 K/mm3 (0.7-4.5); Lymphocytes % 27.4 % (10-50); Mean Corpuscular HGB Conc 31.6 g/dL (31.8-35.4); Mean Corpuscular Hemoglobin 28.9 pg (27.0-31.2); Mean Corpuscular Volume 91.3 fl (81-99); Mean Platelet Volume 8.4 fl (7.4-10.4); Monocytes # 0.2 K/mm3 (0.1-1.0); Monocytes % 3.9 % (1.7-9.3); Neutrophils # 3.3 K/mm3 (1.8-7.8); Neutrophils % 59.3 % (37.0-80.0); Platelet Count 212 K/mm3 (142-424); Red Blood Count 4.43 M/mm3 (4.20-5.40); Red Cell Distribution Width 13.7 % (11.5-17.5); White Blood Count 5.5 K/mm3 (4.8-10.8)
[2022-12-30 10:34] LABS: Alanine Aminotransferase 15 U/L (12-78); Albumin Level 4.2 g/dl (3.5-5.0); Albumin/Globulin Ratio 1.6 (1.1-1.8); Alkaline Phosphatase 104 U/L (38-126); Anion Gap 10.1 mEq/L (5-15); Aspartate Amino Transferase 18 U/L (14-36); Bilirubin,Total 0.3 mg/dl (0.2-1.3); Blood Urea Nitrogen 14 mg/dl (7-17); Carbon Dioxide 31 mmol/L (22.0-30.0); Chloride 104 mmol/L (98-107); Estimated Glomerular Filt Rate 63 ml/min (>60); GFR (African American) 77 ML/MIN (>60); Globulin 2.6 g/dL (1.3-3.2); Glucose 101 mg/dl (74-100); Potassium 4.1 mmoL/L (3.5-5.1); Sodium 141 mmol/L (136-145); Total Protein,Serum 6.8 g/dl (6.3-8.2)
== END ==
PROVIDERS: PCP Nurse Practitioner Family; Visit Provider Nurse Practitioner Family
DX: D64.9 Anemia, unspecified (principal); E87.6 Hypokalemia
CPT/HCPCS: 36415; 80053; 85025

== ENCOUNTER → 2022-12-31 15:13 | Outpatient (CLI) | payer BC, SELFPAY ==
[2023-01-03 15:09] LABS: H. pylori Breath Test Negative (Negative)
== END ==
PROVIDERS: PCP Nurse Practitioner Family; Visit Provider Nurse Practitioner Family
DX: R10.9 Unspecified abdominal pain (principal)
CPT/HCPCS: 83013

== ENCOUNTER → 2023-04-12 14:05 | Outpatient (CLI) | payer BC, SELFPAY ==
--- NOTE | 2023-04-12 14:10 | XR_ITS ---
FINAL REPORT CLINICAL HISTORY: BLE radiculopathy and pain FINDINGS: LEFT HIP 2 views of the left hip are obtained. Patient is status post left hip arthroplasty. There is no acute fracture or dislocation. Visualized joint spaces are normally aligned. There is no acute soft tissue abnormality. IMPRESSION: No acute bony abnormality. Reviewed, Interpreted and Dictated by Jeet Gale III, MD Transcribed by Benita Honr Authenticated and . [facility]
--- NOTE | 2023-04-12 14:10 | XR_ITS ---
FINAL REPORT CLINICAL HISTORY: BLE radiculopathy and pain X 2 WEEKS FINDINGS: RIGHT HIP Two views of the right hip demonstrate no acute fracture or dislocation. The joint spaces appear normal. Patient is status post right hip arthroplasty. There is a chronic calcification adjacent to the greater trochanter. The visualized bony structures are well aligned. No soft tissue abnormality is seen. IMPRESSION: No acute bony abnormality. Reviewed, Interpreted and Dictated by Jeet Gale III, MD Transcribed by Benita Horn Authenticated and [facility]
--- NOTE | 2023-04-12 14:10 | XR_ITS ---
FINAL REPORT CLINICAL HISTORY: BLE radiculopathy and pain FINDINGS: LUMBAR SPINE AP and lateral views were obtained. There is mild anterolisthesis of L4 on L5. There are mild and moderate degenerative changes. There is a mild L5 superior endplate compression fracture which is age-indeterminate. Vertebrae are normal height. Prevertebral soft tissues are unremarkable. IMPRESSION: Age-indeterminate mild, L5 superior endplate compression fracture. Reviewed, Interpreted and Dictated by Jeet Gale III, MD Transcribed by Benita Horn Authenticated and [facility]
== END ==
PROVIDERS: PCP Nurse Practitioner Family; Visit Provider Nurse Practitioner Family
DX: M54.16 Radiculopathy, lumbar region (principal); M25.551 Pain in right hip; M25.552 Pain in left hip
CPT/HCPCS: 72100; 73502

== ENCOUNTER → 2023-04-28 06:42 | Outpatient (CLI) | payer BC, SELFPAY ==
--- NOTE | 2023-04-28 06:45 | MR_ITS ---
FINAL REPORT CLINICAL HISTORY: RADICULOPATHY, SHOOTING PAINS BILATERAL LEGS WHEN STANDING, L5 FX SEEN ON XRAY, NO INJURY COMPARISON: CT dated 08/24/2020 FINDINGS: Multiplanar MR imaging of the lumbar spine was performed without contrast. On the sagittal T2-weighted images, there is abnormal decreased signal throughout the lumbar discs. There is a 20% compression deformity at the superior endplate of L5. Mild edema is identified, findings probably due to subacute insufficiency fracture. The vertebral alignment is normal. T12-L1: There is no significant canal stenosis or neural foraminal narrowing. L1-2: Mild diffuse disc bulge is present with mild to moderate bilateral neural foraminal narrowing. L2-3: Mild to moderate diffuse disc bulge is present. There is moderate bilateral neural foraminal narrowing. L3-4: Moderate diffuse disc bulge is present with moderate bilateral neural foraminal narrowing. L4-5: Moderate diffuse disc bulge is present with moderate bilateral neural foraminal narrowing. L5-S1: Moderate diffuse disc bulge is present with moderate bilateral neural foraminal narrowing. IMPRESSION: New, subacute compression deformity of L5. Multilevel neural foraminal compromise as above. Reviewed, Interpreted and Dictated by Thaddeus Camilo MD Transcribed by Charissa Eaton Authenticated and [facility]
== END ==
PROVIDERS: PCP Nurse Practitioner Family; Visit Provider Neurological Surgery
DX: M54.16 Radiculopathy, lumbar region (principal)
CPT/HCPCS: 72148; 76376

== ENCOUNTER 2023-09-11 11:16 | Emergency (ER) | payer BC, SELFPAY ==
[2023-09-11 11:25] VITALS: BP 148/81; PULSE 88; RESP 19; TEMP 36.7; O2SAT 96; BMI 40.0
--- NOTE | 2023-09-11 11:46 | EXP.UTC ---
Discharge Plan Disposition Patient Disposition: Home, Self-Care Condition: Good Prescriptions Prescriptions: New azithromycin [Zithromax] 250 mg tablet 250 mg PO UD DOSE PK Qty: 6 0RF Rx Instructions: Take two (2) tablets today, then one (1) tablet days #2 thru #5 benzonatate 100 mg capsule 100 mg PO TIDP PRN (Reason: Cough) Qty: 30 0RF methylprednisolone 4 mg Tablets,Dose Pack 4 mg PO DIRECTED 6 Days Qty: 21 0RF Rx Instructions: Take 1 pack as directed for 6 days No Action cholecalciferol (vitamin D3) 10 mcg (400 unit) tablet 800 unit PO DAILY celecoxib [Celebrex] 200 mg capsule 200 mg PO DAILY Qty: 90 3RF escitalopram oxalate [Lexapro] 20 mg tablet 20 mg PO DAILY Qty: 90 3RF levothyroxine 125 mcg tablet 125 mcg PO DAILY Qty: 90 3RF omeprazole 20 mg capsule,delayed release(DR/EC) 20 mg PO BID Qty: 180 1RF Referrals Follow up/Referrals: Rosalva Horn APRN [Primary Care Provider] - See instructions Activity Restrictions/Add. Instructions Additional Instructions/Restrictions: Drink plenty of fluids. Take tylenol or ibuprofen for pain or fever. Take the medications as directed. Follow up with your regular doctor. GO TO THE ER FOR ANY WORSENING SYMPTOMS Clinical Impressions Clinical Impression: Sinusitis, Otitis media Instructions Patient Instructions: Sinusitis, DI for Sinusitis, Methylprednisolone, Azithromycin Discharge ED Provider: Diomedes Hicks [facility] [place] General Stated complaint: sore throat, congestion Mode of Arrival: Ambulatory Source of Information: Patient Limitations: No Limitations Time Seen by Provider: 09/11/23 11:45 Description of Symptoms (Recalled from Triage Doc. by RN): PATIENT C/O BURNING/SCRATCHY THROAT, LEFT EAR STOPPED UP, AND SINUS DRAINAGE THAT STARTED LAST NIGHT HEENT Symptoms (Recalled from RN notes): Yes Resp Symptoms (Recalled from RN notes): No Skin Symptoms (Recalled from RN notes): No MS Symptoms (Recalled from RN notes): No Functional Status (Recalled from RN notes): WNL History of Present Illness Provider Complaint: She states that for the past 2 days she has had worsening sinus congestion, ear pain, and scratchy sore throat. She states that she gets sinus infections this time of the year and that is what she feels like is happening now. She denies any fever/chills/malaise. Related Data Home Medications Medication Instructions Recorded Confirmed cholecalciferol (vitamin D3) 10 800 unit PO DAILY osteoporosis 08/25/22 09/11/23 mcg (400 unit) tablet Previous Rx's Medication Instructions Recorded celecoxib 200 mg capsule (Celebrex) 200 mg PO DAILY #90 caps 07/26/23 escitalopram oxalate 20 mg tablet 20 mg PO DAILY #90 tabs 07/26/23 (Lexapro) levothyroxine 125 mcg tablet 125 mcg PO DAILY #90 tabs 07/26/23 omeprazole 20 mg capsule,delayed 20 mg PO BID #180 caps 07/26/23 release azithromycin 250 mg tablet 250 mg PO UD DOSE PK #6 tabs 09/11/23 (Zithromax) benzonatate 100 mg capsule 100 mg PO TIDP PRN Cough #30 caps 09/11/23 methylprednisolone 4 mg tablets in 4 mg PO DIRECTED 6 days #21 tabs 09/11/23 a dose pack Allergies Allergy/AdvReac Type Severity Reaction Status Date / Time Penicillins Allergy Unknown LOCAL Verified 03/23/23 08:37 REACTION TO INJECTION Worker's Comp Is this a Worker's Comp case?: No [facility] Disclaimer: The information contained in this section may have been updated after the patient was seen, as this information can be updated by other users. Medical History (Updated 09/11/23 @ 12:16 by Diomedes Hicks APRN) ROM (right otitis media) Acute maxillary sinusitis Sore throat Left otitis media Hypokalemia Anemia Acute hypokalemia Chest pain History of asthma Multiple pulmonary nodules Shortness of breath Dyspnea on exertion Right heart enlargement MRSA infection Conjunctivitis Dyspnea Rheumatic fever Scarlet fever Establishing care with new doctor, encounter for Encounter for screening for osteoporosis BMI 40.0-44.9, adult FAY (obstructive sleep apnea) Right tibial fracture Overactive bladder Arthritis Hypothyroid Mesenteric adenitis Flank pain URI (upper respiratory infection) Surgical History History of esophagogastroduodenoscopy (EGD) H/O: hysterectomy History of 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 History of cholecystectomy History of appendectomy H/O tubal ligation H/O thyroidectomy Family History Father Cancer skin Parkinsons disease Mother A-fib Brother Cancer skin Social History Smoking Status: Never smoker alcohol intake: current substance use type: denies use current occupational status: retired Travel in the last 8 weeks: None household members: family housing: house marital status: ROS Obtained: Yes All systems reviewed & no additional complaints except as documented Constitutional Constitutional: Denies chills, Reports fever(s) and Reports poor appetite Eyes Eyes: Denies eye discharge ENT Ears, Nose, Mouth, and Throat: Denies ear discharge, Reports otalgia, Denies hearing loss, Denies sinus pain and Reports sore throat Cardiovascular Cardiovascular: Denies chest pain and Denies dyspnea Respiratory Respiratory: Denies chest congestion, Reports cough and Denies dyspnea Gastrointestinal Gastrointestingal: Denies abdominal pain, diarrhea, nausea or vomiting Musculoskeletal Musculoskeletal: Denies arthralgias Integumentary/Breasts Skin/Breast: Denies rash Physical Exam General General appearance: alert and in no apparent distress Head Head exam: atraumatic, normocephalic and normal inspection Eye Eye exam: Present normal appearance; Absent PERRL or EOMI ENT ENT exam: Present mucous membranes moist and normal external ear exam Expanded ENT Exam TM/Canal exam: Bilateral TM: erythema, bulging and effusion Nose exam: Absent sinus tenderness Nasal speculum exam: Bilateral: normal Mouth exam: Present normal external inspection and other; Absent drooling Teeth exam: Present normal inspection Throat exam: Present tonsillar erythema and tonsillomegaly Neck Neck exam: Present normal inspection, full ROM and trachea midline; Absent tenderness, meningismus or lymphadenopathy Chest Chest inspection: Present normal inspection and symmetric chest wall rise; Absent tenderness Respiratory Respiratory exam: Present normal lung sounds bilaterally; Absent respiratory distress, wheezes or stridor Cardiovascular Cardiovascular exam: Present regular rate, normal rhythm and normal heart sounds; Absent tachycardia or irregular rhythm Abdominal Exam Abdominal exam: Present soft and normal bowel sounds; Absent distention, tenderness, guarding, rebound or rigidity Extremities Exam Extremities exam: Present normal inspection and normal capillary refill; Absent tenderness, joint swelling or calf tenderness Back Exam Back exam: Present normal inspection and full ROM; Absent tenderness, CVA tenderness (R) or CVA tenderness (L) Neurological Exam Neurological exam: Present alert, oriented X3, CN II-XII intact, normal gait and reflexes normal; Absent motor sensory deficit Psychiatric Psychiatric exam: Present normal affect and normal mood Skin Skin exam: Present warm, dry, intact and normal color Lymphatic Lymphatic Findings: no adenopathy Medical Decision Making Medical Records Medical records reviewed: No I reviewed the patient's medical records. [place] Inquiry Pt receiving controlled substance: No Vital Signs: 09/11/23 11:25 Temperature 98.0 F Temperature Source Oral Pulse Rate [Left Brachial] 88 Respiratory Rate 19 Blood Pressure [Left Arm] 148/81 H Blood Pressure Mean [Left Arm] 103 Blood Pressure Source [Left Arm] Automatic Cuff Blood Pressure Position [Left Arm] Sitting 02 Sat by Pulse Oximetry 96 Oxygen Delivery Method Room Air
[2023-09-11 12:10] VITALS: BP 148/81; PULSE 88; RESP 19; TEMP 36.7; O2SAT 96
== END 2023-09-11 12:21 | disposition home or self-care (01) ==
PROVIDERS: Emergency Provider Nurse Practitioner Family; PCP Nurse Practitioner Family
DX: J01.90 Acute sinusitis, unspecified (principal); H66.93 Otitis media, unspecified, bilateral; R07.0 Pain in throat; R09.81 Nasal congestion; E03.9 Hypothyroidism, unspecified
CPT/HCPCS: 99204; 99212; G0463

== ENCOUNTER 2023-10-09 11:21 | Emergency (ER) | payer BC, SELFPAY ==
[2023-10-09 12:11] VITALS: BP 142/87; PULSE 84; RESP 18; TEMP 36.9; O2SAT 96; BMI 39.1
--- NOTE | 2023-10-09 12:47 | ED_ITS ---
Discharge Plan Disposition Patient Disposition: Home, Self-Care Condition: Good Prescriptions Prescriptions: New doxycycline hyclate 100 mg capsule 100 mg PO BID Qty: 20 0RF No Action cefdinir 300 mg capsule 300 mg PO BID 10 Days Qty: 20 0RF albuterol sulfate 90 mcg/actuation HFA aerosol inhaler 2 puff inhalation Q4-6H PRN (Reason: bronchospasm) Qty: 6.7 1RF prednisone 20 mg tablet 20 mg PO DAILY 5 Days Qty: 5 0RF cholecalciferol (vitamin D3) 10 mcg (400 unit) tablet 800 unit PO DAILY celecoxib [Celebrex] 200 mg capsule 200 mg PO DAILY Qty: 90 3RF escitalopram oxalate [Lexapro] 20 mg tablet 20 mg PO DAILY Qty: 90 3RF levothyroxine 125 mcg tablet 125 mcg PO DAILY Qty: 90 3RF omeprazole 20 mg capsule,delayed release(DR/EC) 20 mg PO BID Qty: 180 1RF acyclovir 5 % cream 1 applic topical 5XD 4 Days Qty: 5 0RF levocetirizine [Xyzal] 5 mg tablet 5 mg PO HS Qty: 90 3RF fluticasone propionate [Flonase Allergy Relief] 50 mcg/actuation spray,suspension 1 spray intranasal DAILY Qty: 10 2RF Rx Instructions: administer into each nostril acyclovir 400 mg tablet 400 mg PO BID Qty: 60 1RF azithromycin [Zithromax] 250 mg tablet 250 mg PO UD DOSE PK Qty: 6 0RF Rx Instructions: Take two (2) tablets today, then one (1) tablet days #2 thru #5 benzonatate 100 mg capsule 100 mg PO TIDP PRN (Reason: Cough) Qty: 30 0RF methylprednisolone 4 mg Tablets,Dose Pack 4 mg PO DIRECTED 6 Days Qty: 21 0RF Rx Instructions: Take 1 pack as directed for 6 days Referrals Follow up/Referrals: Rosalva Horn APRN [Primary Care Provider] - See instructions Activity Restrictions/Add. Instructions Additional Instructions/Restrictions: Start antibiotic patient to take as ordered for a full length of time even if you feel better. Sinus infections do not get better overnight. It may take 2-3 days to notice much improvement so be sure to use conservative measures as discussed for symptoms. Flonase 1 spray each nostril daily to help with nasal congestion, sinus and ear pressure/information Increase fluids Humidifier/vaporizer as needed Tylenol and ibuprofen as needed for fever or pain. If symptoms do not improve or get worse return or be seen in the ER Follow-up with primary care this week Clinical Impressions Clinical Impression: Acute maxillary sinusitis Instructions Patient Instructions: DI for Sinusitis Discharge ED Provider: Taran ([facility] [facility] [place] General Stated complaint: congestion, headache Mode of Arrival: Ambulatory Source of Information: Patient Limitations: No Limitations Time Seen by Provider: 10/09/23 12:48 Description of Symptoms (Recalled from Triage Doc. by RN): PT REPORTS SINUS CONGESTION X 3 WEEKS HEENT Symptoms (Recalled from RN notes): Yes Resp Symptoms (Recalled from RN notes): Yes Skin Symptoms (Recalled from RN notes): No MS Symptoms (Recalled from RN notes): No Functional Status (Recalled from RN notes): NA History of Present Illness Provider Complaint: 63 yr old female presents for sinus pressure, congestion, thick dark drainage, cough and runny nose for 3 weeks p states she has been on 2 antibiotics, and 2 rounds of steroids and no improvement Related Data Home Medications Medication Instructions Recorded Confirmed cholecalciferol (vitamin D3) 10 800 unit PO DAILY osteoporosis 08/25/22 09/15/23 mcg (400 unit) tablet Previous Rx's Medication Instructions Recorded celecoxib 200 mg capsule (Celebrex) 200 mg PO DAILY #90 caps 07/26/23 escitalopram oxalate 20 mg tablet 20 mg PO DAILY #90 tabs 07/26/23 (Lexapro) levothyroxine 125 mcg tablet 125 mcg PO DAILY #90 tabs 07/26/23 omeprazole 20 mg capsule,delayed 20 mg PO BID #180 caps 07/26/23 release azithromycin 250 mg tablet 250 mg PO UD DOSE PK #6 tabs 09/11/23 (Zithromax) benzonatate 100 mg capsule 100 mg PO TIDP PRN Cough #30 caps 09/11/23 methylprednisolone 4 mg tablets in 4 mg PO DIRECTED 6 days #21 tabs 09/11/23 a dose pack albuterol sulfate 90 mcg/actuation 2 puff inhalation Q4-6H PRN 09/15/23 aerosol inhaler bronchospasm #6.7 grams cefdinir 300 mg capsule 300 mg PO BID 10 days #20 caps 09/15/23 prednisone 20 mg tablet 20 mg PO DAILY 5 days #5 tabs 09/15/23 acyclovir 5 % topical cream 1 applic topical 5XD 4 days #5 09/17/23 grams fluticasone propionate 50 1 spray intranasal DAILY #10 mL 09/21/23 mcg/actuation nasal spray,suspension (Flonase Allergy Relief) levocetirizine 5 mg tablet (Xyzal) 5 mg PO HS #90 tabs 09/21/23 acyclovir 400 mg tablet 400 mg PO BID #60 tabs 10/02/23 doxycycline hyclate 100 mg capsule 100 mg PO BID #20 caps 10/09/23 Allergies Allergy/AdvReac Type Severity Reaction Status Date / Time Penicillins Allergy Unknown LOCAL Verified 09/15/23 10:55 REACTION TO INJECTION Worker's Comp Is this a Worker's Comp case?: No [facility] Disclaimer: The information contained in this section may have been updated after the patient was seen, as this information can be updated by other users. 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) Acute maxillary sinusitis ROM (right otitis media) Sore throat Left otitis media Hypokalemia Anemia Acute hypokalemia Chest pain History of asthma Multiple pulmonary nodules Shortness of breath Dyspnea on exertion Right heart enlargement MRSA infection Conjunctivitis Dyspnea Rheumatic fever Scarlet fever Establishing care with new doctor, encounter for Encounter for screening for osteoporosis BMI 40.0-44.9, adult FAY (obstructive sleep apnea) Right tibial fracture Overactive bladder Arthritis Hypothyroid Mesenteric adenitis Flank pain URI (upper respiratory infection) Surgical History , 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) History of esophagogastroduodenoscopy (EGD) H/O: hysterectomy History of 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 History of cholecystectomy History of appendectomy H/O tubal ligation H/O thyroidectomy Family History , 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) A-fib Mother Cancer Father Brother Parkinsons disease Father Social History , 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) Smoking Status: Never smoker alcohol intake: current alcohol intake frequency: holidays/special occasions only substance use type: denies use current occupational status: retired Travel in the last 8 weeks: None household members: family housing: house marital status: ROS Obtained: Yes All systems reviewed & no additional complaints except as documented Constitutional Constitutional: Reports system reviewed and no additional complaints, except as documented Eyes Eyes: Reports system reviewed and no additional complaints, except as documented ENT Ears, Nose, Mouth, and Throat: Reports system reviewed and no additional complaints, except as documented, Reports as per HPI, Reports facial pain, Reports nasal congestion, Reports nasal discharge and Reports sinus pressure Cardiovascular Cardiovascular: Reports system reviewed and no additional complaints, except as documented Respiratory Respiratory: Reports system reviewed and no additional complaints, except as documented Gastrointestinal Gastrointestingal: Reports system reviewed and no additional complaints, except as documented Neurologic Neurologic: Reports system reviewed and no additional complaints, except as documented Endocrine Endocrine: Reports system reviewed and no additional complaints, except as documented Hematologic/Lymphatic Henatologic/Lymphatic: Reports system reviewed and no additional complaints, except as documented Physical Exam General General appearance: alert and in no apparent distress Head Head exam: atraumatic Eye Eye exam: Present normal appearance ENT ENT exam: Present mucous membranes moist and TM's normal bilaterally Expanded ENT Exam Nose exam: Present sinus tenderness Respiratory Respiratory exam: Present normal lung sounds bilaterally Cardiovascular Cardiovascular exam: Present regular rate and normal rhythm Neurological Exam Neurological exam: Present alert and oriented X3 Skin Skin exam: Present warm and intact Medical Decision Making Medical Records Medical records reviewed: Yes I reviewed the patient's medical records. [place] Inquiry Pt receiving controlled substance: No [place] was queried for this patient: No Vital Signs: 10/09/23 12:11 Temperature 98.4 F Temperature Source Oral Pulse Rate [Radial] 84 Respiratory Rate 18 Blood Pressure [Right Arm] 142/87 H Blood Pressure Mean [Right Arm] 105 Blood Pressure Source [Right Arm] Automatic Cuff Blood Pressure Position [Right Arm] Sitting 02 Sat by Pulse Oximetry 96 Oxygen Delivery Method Room Air Lab Data Lab results reviewed: Yes I reviewed the patient's lab results.
[2023-10-09 13:24] VITALS: BP 142/87; PULSE 84; RESP 18; TEMP 36.9; O2SAT 96
== END 2023-10-09 13:25 | disposition home or self-care (01) ==
PROVIDERS: Emergency Provider Nurse Practitioner Family; PCP Nurse Practitioner Family
DX: J01.00 Acute maxillary sinusitis, unspecified (principal); R05.9 Cough, unspecified; R09.81 Nasal congestion
CPT/HCPCS: 99212; 99214; G0463

== ENCOUNTER 2023-10-12 10:46 | Outpatient (CLI) | payer BC, SELFPAY ==
--- NOTE | 2023-10-12 10:55 | XR_ITS ---
FINAL REPORT CLINICAL HISTORY: dyspnea, cough COMPARISON: None FINDINGS: No acute pulmonary density is evident. There is no evidence of effusion or other pleural disease. The mediastinum has a normal appearance. The cardiac silhouette is unremarkable. IMPRESSION: Unremarkable chest exam. Reviewed, Interpreted and Dictated by Cornel Cox MD Transcribed by Nai Boateng Authenticated and [facility]
[2023-10-12 12:30] LABS: Adenovirus,PCR Not Detected (NotDetected); Coronavirus 19, PCR Not Detected (NotDetected); Coronavirus 229E Not Detected (NotDetected); Coronavirus NL63 Not Detected (NotDetected); Coronavirus OC43 Not Detected (NotDetected); Coronovirus HKU1,PCR Not Detected (NotDetected); Human Metapneumovirus Not Detected (NotDetected); Influenza A, PCR Not Detected (NotDetected); Influenza AH1, 2009 Not Detected (NotDetected); Influenza AH1, PCR Not Detected (NotDetected); Influenza AH3,PCR Not Detected (NotDetected); Influenza B, PCR Not Detected (NotDetected); Parainfluenza 1, PCR Not Detected (NotDetected); Parainfluenza 2, PCR Not Detected (NotDetected); Parainfluenza 4, PCR Not Detected (NotDetected); Respiratory Syncytial Virus Not Detected (NotDetected); Rhinovirus/Enterovirus Not Detected (NotDetected)
[2023-10-12 12:43] LABS: Basophils % 0.9 % (0.1-2.0); Eosinophils # 0.3 K/mm3 (0.0-0.4); Eosinophils % 5.3 % (0.1-12.0); Hematocrit 39.8 % (37.0-47.0); Hemoglobin 13.1 g/dL (12.2-16.2); Lymphocytes # 1.9 K/mm3 (0.7-4.5); Lymphocytes % 39.7 % (10-50); Mean Corpuscular HGB Conc 32.8 g/dL (31.8-35.4); Mean Corpuscular Hemoglobin 28.4 pg (27.0-31.2); Mean Corpuscular Volume 86.4 fl (81-99); Mean Platelet Volume 9.3 fl (7.4-10.4); Monocytes # 0.3 K/mm3 (0.1-1.0); Monocytes % 5.6 % (1.7-9.3); Neutrophils # 2.3 K/mm3 (1.8-7.8); Neutrophils % 48.5 % (37.0-80.0); Platelet Count 257 K/mm3 (142-424); Red Blood Count 4.61 M/mm3 (4.20-5.40); White Blood Count 4.7 K/mm3 (4.8-10.8)
[2023-10-12 13:06] LABS: Alanine Aminotransferase 36 U/L (12-78); Albumin Level 4.1 g/dl (3.5-5.0); Albumin/Globulin Ratio 1.6 (1.1-1.8); Alkaline Phosphatase 94 U/L (38-126); Anion Gap 10.9 mEq/L (5-15); Aspartate Amino Transferase 43 U/L (14-36); Bilirubin,Total 0.5 mg/dl (0.2-1.3); Blood Urea Nitrogen 11 mg/dl (7-17); Calcium 9.3 mg/dl (8.4-10.2); Carbon Dioxide 28 mmol/L (22.0-30.0); Chloride 103 mmol/L (98-107); Estimated Glomerular Filt Rate 84 ml/min (>60); GFR (African American) 102 ML/MIN (>60); Globulin 2.6 g/dL (1.3-3.2); Glucose 89 mg/dl (74-100); Potassium 3.9 mmoL/L (3.5-5.1); Sodium 138 mmol/L (136-145); Total Protein,Serum 6.7 g/dl (6.3-8.2)
[2023-10-12 13:33] LABS: NT Pro Brain Natriuretic Pep. 64.8 pg/mL (0-125)
[2023-10-13 04:53] LABS: Parainfluenza 3, PCR Detected (NotDetected)
== END 2023-10-12 23:59 | disposition home or self-care (01) ==
LOC: LAB.DROPOF 10:47
PROVIDERS: PCP Nurse Practitioner Family; Visit Provider Nurse Practitioner Family
DX: J06.9 Acute upper respiratory infection, unspecified (principal); J20.9 Acute bronchitis, unspecified; R06.02 Shortness of breath; R06.09 Other forms of dyspnea; B97.89 Other viral agents as the cause of diseases classified elsewhere
CPT/HCPCS: 71046; 80053; 83880; 85025; 87581; 87632; 87635; 87798

== ENCOUNTER 2023-11-11 06:01 | Outpatient (CLI) | payer BC, SELFPAY ==
--- NOTE | 2023-11-11 06:04 | CT_ITS ---
FINAL REPORT TECHNIQUE: Axial images were obtained from the lung apex to the mid abdomen by computed tomography. Coronal reformatted images were obtained. This study was performed with techniques to keep radiation doses as low as reasonably achievable, (ALARA). Individualized dose reduction techniques using automated exposure control or adjustment of mA and/or kV according to the patient''s size were employed. CLINICAL HISTORY: lung nodule, f/u imaging COMPARISON: 11/23/2022 FINDINGS: There is no axillary adenopathy. There is no hilar or mediastinal adenopathy. Heart size is normal. There is no pericardial or pleural effusion. There is a juxtapleural nodule in the right lower lobe measuring 5 mm in greatest dimension best seen on image 134 series 3, unchanged. There is a stable 3 mm nodule in the anterior left lower lobe best seen on image 154 series 3. No new mass or nodule identified. Limited images of the upper abdomen demonstrate postoperative changes from prior gastric sleeve. IMPRESSION: Stable lung nodules. No new mass or nodule identified. Reviewed, Interpreted and Dictated by Thaddeus Camilo MD Transcribed by Ale Dash Authenticated and [facility]
== END 2023-11-11 23:59 | disposition home or self-care (01) ==
LOC: RAD 06:02
PROVIDERS: PCP Nurse Practitioner Family; Visit Provider Nurse Practitioner Family
DX: R91.8 Other nonspecific abnormal finding of lung field (principal)
CPT/HCPCS: 71250

== ENCOUNTER 2023-11-15 10:39 | Outpatient (CLI) | payer BC, SELFPAY ==
[2023-11-15 10:29] LABS: Microscopic, Urine URINE MICROSCOPIC (MICROSCOPIC)
[2023-11-15 10:36] LABS: Basophils # 0.1 K/mm3 (0-0.2); Basophils % 1.3 % (0.1-2.0); Eosinophils # 0.3 K/mm3 (0.0-0.4); Eosinophils % 5.6 % (0.1-12.0); Hemoglobin 12.5 g/dL (12.2-16.2); Lymphocytes # 1.7 K/mm3 (0.7-4.5); Lymphocytes % 38.1 % (10-50); Mean Corpuscular HGB Conc 32.8 g/dL (31.8-35.4); Mean Corpuscular Volume 88.3 fl (81-99); Mean Platelet Volume 8.5 fl (7.4-10.4); Monocytes # 0.3 K/mm3 (0.1-1.0); Monocytes % 6.5 % (1.7-9.3); Neutrophils # 2.2 K/mm3 (1.8-7.8); Neutrophils % 48.6 % (37.0-80.0); Platelet Count 310 K/mm3 (142-424); Red Cell Distribution Width 15.4 % (11.5-17.5); White Blood Count 4.6 K/mm3 (4.8-10.8)
[2023-11-15 10:39] LABS: Appearance,Urine CLEAR (Clear); Bilirubin,Urine Negative (Negative); Blood, Urine Negative (Negative); Color,Urine YELLOW (Yellow); Glucose,Urine (UA) Negative (Negative); Ketones,Urine Negative (Negative); Leukocyte Esterase,Urine TRACE (Negative); Nitrate,Urine Negative (Negative); PH,Urine 5.5 (5.0-8.5); Protein,Urine Negative (Negative); Urobilinogen,Urine 0.2 EU/dl (0.2)
[2023-11-15 10:59] LABS: Bacteria,Urine Trace /lpf; Squamous Epithelial Cell,Urine Occasional #/hpf (0-5)
[2023-11-15 11:01] LABS: Chloride 104 mmol/L (98-107); Sodium 139 mmol/L (136-145)
[2023-11-15 11:02] LABS: Potassium 4.2 mmoL/L (3.5-5.1)
[2023-11-15 11:04] LABS: Alanine Aminotransferase 16 U/L (12-78); Albumin/Globulin Ratio 1.4 (1.1-1.8); Alkaline Phosphatase 72 U/L (38-126); Anion Gap 8.2 mEq/L (5-15); Aspartate Amino Transferase 22 U/L (14-36); Bilirubin,Total 0.4 mg/dl (0.2-1.3); Blood Urea Nitrogen 20 mg/dl (7-17); Calcium 9.4 mg/dl (8.4-10.2); Carbon Dioxide 31 mmol/L (22.0-30.0); Chol/HDL Ratio 3.8 (1-3.5); Cholesterol 219 mg/dl (140-200); Estimated Glomerular Filt Rate 84 ml/min (>60); GFR (African American) 102 ML/MIN (>60); Globulin 2.9 g/dL (1.3-3.2); Glucose 85 mg/dl (74-100); HDL Cholesterol 58 mg/dl (40-60); Total Protein,Serum 6.9 g/dl (6.3-8.2); Triglycerides 191 mg/dl (30-150); VLDL Cholesterol 38 mg/dL (0-40)
[2023-11-15 11:16] LABS: Direct LDL Cholesterol 104.13 mg/dL (100-129)
[2023-11-15 11:19] LABS: 25-OH Vitamin D, Total 42.4 ng/mL (30-100)
[2023-11-15 11:36] LABS: Thyroid Stimulating Hormone 2.13 uIU/mL (0.465-4.68)
[2023-11-15 12:46] LABS: Vitamin B12 326 pg/mL (239-931)
[2023-11-15 13:17] LABS: Hemoglobin A1C 5.3 % (4.0-6.0)
== END 2023-11-15 23:59 | disposition home or self-care (01) ==
LOC: LAB.DROPOF 10:39
PROVIDERS: PCP Nurse Practitioner Family; Visit Provider Nurse Practitioner Family
DX: E66.01 Morbid (severe) obesity due to excess calories (principal); G47.33 Obstructive sleep apnea (adult) (pediatric); E03.9 Hypothyroidism, unspecified; F41.9 Anxiety disorder, unspecified; F32.A Depression, unspecified; E55.9 Vitamin D deficiency, unspecified; R53.83 Other fatigue; I51.7 Cardiomegaly; Z13.1 Encounter for screening for diabetes mellitus; Z13.220 Encounter for screening for lipoid disorders; Z68.42 Body mass index [BMI] 45.0-49.9, adult
CPT/HCPCS: 80053; 80061; 81001; 82306; 82607; 83036; 84439; 84443; 85025; 87086

== ENCOUNTER 2023-12-02 10:19 | Outpatient (CLI) | payer BC, SELFPAY ==
--- NOTE | 2023-12-02 10:19 | MM_ITS ---
PROCEDURE INFORMATION: Exam: MG Bilateral Screening 3D Mammography Exam date and time: 12/02/2023 10:12 AM Age: 63 years old Clinical indication: Screening examination TECHNIQUE: Imaging protocol: Bilateral Screening tomosynthesis and 2D mammography including computer-aided detection (CAD) when performed. COMPARISON: 1. MG MM DIG SCREENING MAMM BI W/CAD 08/05/2022 8:06 AM 2. MG MM DIG SCREENING MAMM BI W/CAD 11/06/2020 8:23 AM FINDINGS: MAMMOGRAPHY: Breast composition: There are scattered areas of fibroglandular density. Mass: None. Architectural distortion: None. Calcifications: No suspicious calcifications. Asymmetric density: None. Skin thickening: None. Axillary adenopathy: None. IMPRESSION: No mammographic evidence of malignancy. Annual screening is recommended unless otherwise clinically indicated. ASSESSMENT: BI-RADS Category 1: Negative
== END 2023-12-02 23:59 | disposition home or self-care (01) ==
LOC: RAD 10:19
PROVIDERS: PCP Nurse Practitioner Family; Visit Provider Nurse Practitioner Family
DX: Z12.31 Encounter for screening mammogram for malignant neoplasm of breast (principal)
CPT/HCPCS: 77063; 77067

== ENCOUNTER 2024-03-27 14:00 | Outpatient (RCR) | payer BC, SELFPAY ==
--- NOTE | 2024-03-22 15:23 | HMH.PTOPEV ---
PT Outpatient Evaluation Rehab PT Outpatient Evaluation Start: 03/22/24 07:58 Freq: Status: Active Protocol: Document 03/22/24 07:58 NATALIE (Rec: 03/22/24 10:07 NATALIE [id number]) E-signed By Courtney Mckoy, PT Outpatient Therapy Subjective History Subjective History This is an initial evaluation for 63 y/o female, Dagmar Mcdaniel , who presents with referral for Left Ankle Pain. Pt reports in January she heard a pop and has since had edema and pain. [place] like I was sort of shot in the back of the leg . Pt instantly noticed pain and swelling at her distal calf/Achilles. Pt was determined to continue her daily tasks and allow time to heel her injury. 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 Pt has had difficulty walking /WBing since the injury and saw her PCP on 03/16. Denies any noticeable bruising at injury but does report swelling and warmth. Pt reports the symptoms have not gotten any better since the injury. Denies any falls since her injury. Pt has difficulty walking (especially towards end of day) and with stair negotiation. Imaging: No images were performed on her ankle or foot . Date of initial injury: January (does not recall specific date) Date of first PCP appointment: 03/16/24 PMH: Bilateral hip replacement , hardware in back and right leg, no pacemaker Pt's goal for PT: To be able to walk pain-free . New diagnosis of cancer in past 12 No months? Chief Complaint Pain,Stiff,Swelling Symptom Type Ache,Sharp Symptoms Relieved By Rest/Positioning Symptoms Aggravated By Standing,Physical Activity, Walking Prior Functional Limitations None Current Functional Limitations Standing,Squatting,Recreation Activity,Walking,Stairs, Balance Symptom Description Intermittent,Activity Dependent Level of pain today (0-10) 6 Pain scale - at its best (0-10) 3 Pain scale - at its worst (0-10) 6 Ankle/Foot Eval Gait Observation General Gait Pattern Observation Antalgic Gait Assistive Device Ambulation Assistive Device None Palpation Tenderness left Ankle/Foot Palpation Findings Tenderness Ankle/Foot Palpation Overall Comment 2/4 TTP distal calf/Achilles tendon ATF TTP negative PTF TTP negative Deltoid ligament TTP negative ROM Ankle/Foot Dorsiflexion w/Knee Flexed 10 degrees, painful Active Range of Motion (degrees) Ankle/Foot Plantar Flexion Active Range 40 degrees of Motion (degrees) Ankle/Foot Eversion Active Range of 20 degrees Motion (degrees) Ankle/Foot Inversion Active Range of 30 degrees Motion (degrees) Ankle/Foot ROM Limitations Pain MMT Ankle Dorsiflexion Strength Grade 4 Good Ankle Plantarflexion Strength Grade 4 Good Foot Eversion Strength Grade 4 Good Foot Inversion Strength Grade 4 Good Special Tests Ankle Anterior Drawer Test Negative Left Ankle Eversion Test Negative Left Talar Tilt Test Negative Left Ankle Inversion (supination) Test Negative Left Ankle Posterior Drawer Test Negative Left Lower Extremity Functional Index Activities Today, do you or would you have any difficulty at all with: a.Any of your usual work, housework or Moderate difficulty school activities b. Your usual hobbies, recreational or Moderate difficulty sporting activities c. Getting into or out of the bath Moderate difficulty d. Walking between rooms Moderate difficulty e. Putting on your shoes or socks No difficulty f. Squatting Quite a bit of difficulty g. Lifting an object, like a bag of Moderate difficulty groceries from the floor h. Performing light activities around Moderate difficulty your home i. Performing heavy activities around Moderate difficulty your home j. Getting into or out of a car Moderate difficulty k. Walking 2 blocks Moderate difficulty l. Walking a mile Moderate difficulty m. Going up or down 10 stairs (about 1 Moderate difficulty flight of stairs) n. Standing for 1 hour Moderate difficulty o. Sitting for 1 hour No difficulty p. Running on even ground Extreme difficulty or unable to perform activity q. Running on uneven ground Extreme difficulty or unable to perform activity r. Making sharp turns while running fast Extreme difficulty or unable to perform activity s. Hopping Extreme difficulty or unable to perform activity t. Rolling over in bed No difficulty LEFI Score Lower Extremity Functional Index Score 37 Miscellaneous Dx PT Eval Objective Objective Ankle figure-8 for edema: 52cm L ankle (50cm R ankle) [facility] Test: positive for Achilles involvement Hendricks Test: Some PF noted in L ankle (negative for full rupture) Outpatient Therapy Assessment Impairments Problems/Impairmments Palpation Tenderness,Impaired Range of Motion,Impaired Strength,Impaired Transfers, Impaired Gait Pattern,Impaired Walking,Impaired Standing, Impaired Stair Climbing, Impaired Incline Stepping, Impaired Stepping on Uneven Surface,Impaired Bending, Impaired Recreational Activities,Impaired Running, Impaired Jumping,Impaired Work Activities,Impaired Balance, Increased Edema,Subjective C/O Pain Prognosis Rehab Potential Good Comment Pt presents with swelling localized at distal calf/ Achilles, some erythema at distal calf, 2/4 TTP, pain with WBing, and pain with resisted ankle mvt. Pt's subjective complaints, mechanism of injury, and objective findings are consistent with an injury of Achilles tendon. However, PT would need further imaging to provide PT with a confirmed diagnosis and provide the best PT POC. PT to treat Achilles pain and refer back to PCP for further imaging and an order for CAM boot d/t subjective complaints and difficulty WBing. Pt verbalized understanding. PT provided pt with heel lift inserts to provide relief from Achilles injury. Pt found instant relief from heel lift in left tennis shoe. However, pt reports the pain was not entirely eliminated with lifts . Pt would benefit from skilled OP PT to address deficits. Clinical Impression Consistent with Diagnosis Yes Consistent with ankle pain Short Term Goals Number of Weeks 4 Improve Gait Pattern without Assistive Yes: Demo no antalgic gait on Device level surfaces (may use heel lifts). Increase Ability to Walk Yes: Verbalize improved ability to ambulate. Improve LEFI Score Yes: Improve by 4 points to improve LE functioning. Decrease Subjective C/O Pain Yes: Pain when walking at end of day decrease to 4/10 to improve mobility. Patient to be Ind w/ HEP Yes: Verbalize IND with HEP [facility] Goals Number of Weeks 8 Decreased Palpation Tenderness Yes: 0/4 TTP Achilles tendon. Increase Range of Motion Yes: L ankle WNL AROM to maximize function. Increase Strength Yes: L ankle 5/5 to return to PLOF. Increase Ability to Walk Yes: 10 minutes without an increase in ankle/foot pain. Improve LEFI Score Yes: Increase to 50/80 to improve LE functioning. Decrease Subjective C/O Pain Yes: At worst pain 2/10 to improve QOL. Patient to be Ind w/ Advanced HEP Yes: Verbalize adherence to HEP Outpatient Therapy Plan of Care Treatment Plan May Include Therapeutic Exercise Including Home Yes Exercise Program Manual Therapy Techniques Yes Neuromuscular Re-education Yes Therapeutic Activities to Return to Yes Previous Functional/Work Level Gait Training Yes ADL/Self Care Education Yes Dry Needling Yes Thermal Modalities Yes Electrical Stimulation Yes Ultrasound/Phonophoresis Yes Iontophoresis Yes Orthotics/Bracing/Splinting Yes Vasopneumatic Compression Pump Yes Massage Yes Eval/Re-Eval Yes Frequency Times per week 2-3x Duration Number of Weeks 6-8 weeks Addendums This patient is a candidate for social No or vocational rehab? Patient/Guardian verbally acknowledges Yes understanding of treatment program and consents to further treatment? Patient/Guardian verbally acknowledges Yes understanding of diagnosis, prognosis and goals for treatment? Eval Complexity PT Charges 12633 - Moderate Complexity Shoulder/Elbow Eval Shoulder Objective Measurements Elbow Objective Measurements PHYSICIAN CERTIFICATION: I certify the specified therapy services for Dagmar Mcdaniel are required, authorized, and reviewed every 30 days.
== END 2024-03-27 23:59 | disposition home or self-care (01) ==
LOC: PT 14:00
PROVIDERS: Visit Provider Nurse Practitioner Family
DX: M25.572 Pain in left ankle and joints of left foot (principal); M79.605 Pain in left leg
CPT/HCPCS: 97016; 97163; 97760

== ENCOUNTER 2024-03-30 13:38 | Outpatient (CLI) | payer BC, SELFPAY ==
--- NOTE | 2024-03-30 13:41 | XR_ITS ---
FINAL REPORT CLINICAL HISTORY: left ankle pain FINDINGS: LEFT ANKLE Three views demonstrate no acute fracture or dislocation. Joint spaces are normally aligned. Mortise is intact. There is a moderate plantar spur. Mild soft tissue swelling is noted. IMPRESSION: No acute bony abnormality. Reviewed, Interpreted and Dictated by Thaddeus Camilo MD Transcribed by Benita Horn Authenticated and [facility]
--- NOTE | 2024-03-30 13:41 | XR_ITS ---
FINAL REPORT CLINICAL HISTORY: LLE pain FINDINGS: LEFT TIBIA AND FIBULA There is no acute fracture or dislocation. Bones are osteopenic. The joint spaces are intact. There is no soft tissue abnormality. IMPRESSION: No acute fracture Reviewed, Interpreted and Dictated by Thaddeus Camilo MD Transcribed by Benita Horn Authenticated and [facility]
--- NOTE | 2024-03-30 13:41 | XR_ITS ---
FINAL REPORT CLINICAL HISTORY: left foot pain FINDINGS: LEFT FOOT Three views of the left foot demonstrate no acute fracture or dislocation. The visualized joint spaces are normally aligned. Bones are osteopenic. There is a moderate plantar spur. The soft tissues are unremarkable. IMPRESSION: No acute bony abnormality. Reviewed, Interpreted and Dictated by Thaddeus Camilo MD Transcribed by Benita Horn Authenticated and [facility]
== END 2024-03-30 23:59 | disposition home or self-care (01) ==
LOC: RAD 13:39
PROVIDERS: PCP Nurse Practitioner Family; Visit Provider Nurse Practitioner Family
DX: M79.672 Pain in left foot (principal); M79.605 Pain in left leg; M25.572 Pain in left ankle and joints of left foot
CPT/HCPCS: 73590; 73610; 73630

== ENCOUNTER 2024-04-13 15:33 | Outpatient (CLI) | payer BC, SELFPAY ==
--- NOTE | 2024-04-13 15:41 | MR_ITS ---
PROCEDURE INFORMATION: Exam: MR Left Lower Extremity Without Contrast, Tibia Fibula Exam date and time: 04/13/2024 3:53 PM Age: 63 years old Clinical indication: Lower leg; Patient HX: Left leg pain from walking , posterior pain from ankle to mid thigh TECHNIQUE: Imaging protocol: Magnetic resonance imaging of the left lower extremity without contrast. Exam focused on the tibia and fibula. COMPARISON: No relevant prior studies available. FINDINGS: Bones/joints: Degenerative changes involving the knee with tricompartmental joint space narrowing and osteophyte formation. No bone abnormalities. Soft tissues: Soft tissue swelling involving the distal calf. Hazy increased T2 signal in the gastrocnemius muscle reflecting muscle edema/myositis which could be due to trauma or less likely infection. No abscess. IMPRESSION: 1. Soft tissue swelling involving the distal calf. 2. Hazy increased T2 signal in the gastrocnemius muscle reflecting muscle edema/myositis muscle strain which could be due to trauma or less likely infection. No abscess.
== END 2024-04-13 23:59 | disposition home or self-care (01) ==
LOC: RAD 15:35
PROVIDERS: PCP Nurse Practitioner Family; Visit Provider Nurse Practitioner Family
DX: M79.605 Pain in left leg (principal)
CPT/HCPCS: 73718

== ENCOUNTER 2024-05-02 10:43 | Emergency (ER) | payer BC, SELFPAY ==
[2024-05-02 11:05] VITALS: BP 138/88; PULSE 89; RESP 18; TEMP 37.2; O2SAT 97; BMI 38.7
--- NOTE | 2024-05-02 11:19 | EXP.UTC ---
Discharge Plan Disposition Patient Disposition: Home, Self-Care Condition: Good Prescriptions Prescriptions: New azithromycin [Zithromax Z-Presley] 250 mg tablet See Rx Instructions .ROUTE .COMPLEX 5 Days Qty: 6 0RF Rx Instructions: For 250 mg dose pack: take 500 mg today (day 1), then 250 mg for 4 days (days 2-5) methylprednisolone [Medrol (Presley)] 4 mg tablets,dose pack See Rx Instructions .Route .COMPLEX 6 Days Qty: 21 0RF Rx Instructions: taper pack; No Action omeprazole 20 mg capsule,delayed release(DR/EC) 20 mg PO BID celecoxib [Celebrex] 200 mg capsule 200 mg PO BID Qty: 180 3RF Wegovy 1.7 mg/0.75 mL pen injector 1.7 mg SQ WEEKLY Qty: 3 1RF Rx Instructions: administer weeks 13 through 16 of therapy furosemide 20 mg tablet 20 mg PO DAILY escitalopram oxalate [Lexapro] 20 mg tablet 20 mg PO DAILY Qty: 90 3RF levothyroxine 125 mcg tablet 125 mcg PO DAILY Qty: 90 3RF levocetirizine [Xyzal] 5 mg tablet 5 mg PO HS Qty: 90 3RF Referrals Follow up/Referrals: Rosalva Horn APRN [Primary Care Provider] - See instructions Activity Restrictions/Add. Instructions Additional Instructions/Restrictions: *Monitor Temp, Over the counter Motrin or Tylenol as directed/as needed Tylenol every 4 hours and Motrin every 6 hours (as long as your family doctor has told you that you can take it) for fever or pain. and straight to ER if unable to lower temp less than 101.0 after medication given *Warm salt water gargles may help to soothe the throat *Throat Lozenges? *Warm fluids like tea with honey may help to soothe the throat? *Sleep elevated *Humidifier/Vaporizer Follow up IMMEDIATELY for new or worsening symptoms or no Noticeable improvement over the next 48-72 hours. 911 for difficulty breathing or swallowing Clinical Impressions Clinical Impression: Sinusitis Instructions Patient Instructions: DI for Sinusitis, Sinusitis Print Language Print Language: Chinese Discharge ED Provider: Jacquie Holliday [facility] [place] General Stated complaint: sore throat ear pain Mode of Arrival: Ambulatory Source of Information: Patient Limitations: No Limitations Time Seen by Provider: 05/02/24 11:19 Description of Symptoms (Recalled from Triage Doc. by RN): PATIENT C/O ITCHY THROAT, NASAL CONGESTION, AND STOPPED UP LEFT EAR SINCE YESTERDAY HEENT Symptoms (Recalled from RN notes): Yes Resp Symptoms (Recalled from RN notes): No Skin Symptoms (Recalled from RN notes): No MS Symptoms (Recalled from RN notes): No Functional Status (Recalled from RN notes): WNL History of Present Illness Provider Complaint: Patient states that she has been having sinus congestion and pressure, then yesterday she started with pain/pressure in her left ear and scratchy throat from the drainage States that she feels like she has a sinus infection and trying to move into her throat Related Data Home Medications ?Medication ?Instructions ?Recorded ?Confirmed furosemide 20 mg tablet 20 mg PO DAILY 10/12/23 05/02/24 omeprazole 20 mg capsule,delayed 20 mg PO BID 03/16/24 05/02/24 release Previous Rx's ?Medication ?Instructions ?Recorded escitalopram oxalate 20 mg tablet 20 mg PO DAILY #90 tabs 07/26/23 (Lexapro) levothyroxine 125 mcg tablet 125 mcg PO DAILY #90 tabs 07/26/23 levocetirizine 5 mg tablet (Xyzal) 5 mg PO HS #90 tabs 09/21/23 celecoxib 200 mg capsule (Celebrex) 200 mg PO BID #180 caps 03/16/24 semaglutide (weight loss) 1.7 1.7 mg (0.75 mL) SQ WEEKLY #3 mL 03/16/24 mg/0.75 mL subcutaneous pen injector (Wegovy) azithromycin 250 mg tablet See Rx Instructions PO .COMPLEX 5 05/02/24 (Zithromax Z-Presley) days #6 tabs methylprednisolone 4 mg tablets in See Rx Instructions .Route 05/02/24 a dose pack (Medrol (Presley)) .COMPLEX 6 days #21 tabs Allergies Allergy/AdvReac Type Severity Reaction Status Date / Time Penicillins Allergy Unknown LOCAL Verified 03/16/24 09:51 REACTION TO INJECTION Worker's Comp Is this a Worker's Comp case?: No [facility] Disclaimer: The information contained in this section may have been updated after the patient was seen, as this information can be updated by other users. Medical History (Updated 05/02/24 @ 11:24 by Jacquie Holliday APRN) Obesity, morbid, BMI 40.0-49.9 Otitis media Sleep apnea Obesity BMI 39.0-39.9,adult Edema Lumbar back pain with radiculopathy affecting left lower extremity Lumbar back pain with radiculopathy affecting right lower extremity Anterolisthesis of lumbar spine Compression fracture of L5 vertebra Acute bronchitis URI (upper respiratory infection) Sinusitis Otitis media Acute maxillary sinusitis ROM (right otitis media) Sore throat Left otitis media Hypokalemia Anemia Acute hypokalemia Chest pain History of asthma Multiple pulmonary nodules Shortness of breath Dyspnea on exertion Right heart enlargement MRSA infection Conjunctivitis Dyspnea Rheumatic fever Scarlet fever Establishing care with new doctor, encounter for Encounter for screening for osteoporosis BMI 40.0-44.9, adult FAY (obstructive sleep apnea) Right tibial fracture Overactive bladder Arthritis Hypothyroid Mesenteric adenitis Flank pain Surgical History History of esophagogastroduodenoscopy (EGD) H/O: hysterectomy History of 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 History of cholecystectomy History of appendectomy H/O tubal ligation H/O thyroidectomy Family History Father Cancer skin Parkinsons disease Mother A-fib Brother Cancer skin Social History Smoking Status: Never smoker alcohol intake: current alcohol intake frequency: holidays/special occasions only substance use type: denies use current occupational status: retired Travel in the last 8 weeks: None household members: family housing: house marital status: ROS Obtained: Yes All systems reviewed & no additional complaints except as documented and Yes Systems reviewed as appropriate & no additional complaints except as documented Constitutional Constitutional: Reports system reviewed and no additional complaints, except as documented, Reports as per HPI and Reports headache(s) ENT Ears, Nose, Mouth, and Throat: Reports system reviewed and no additional complaints, except as documented, Reports as per HPI, Reports otalgia, Reports headache(s), Reports sinus pain, Reports sinus pressure and Reports sore throat Cardiovascular Cardiovascular: Reports system reviewed and no additional complaints, except as documented and Reports as per HPI Respiratory Respiratory: Reports system reviewed and no additional complaints, except as documented, Reports as per HPI and Reports cough Gastrointestinal Gastrointestingal: Reports system reviewed and no additional complaints, except as documented and as per HPI Neurologic Neurologic: Reports headache(s) Physical Exam General General appearance: alert and in no apparent distress ENT ENT exam: Present mucous membranes moist Expanded ENT Exam TM/Canal exam: Bilateral TM: bulging Nose exam: Present sinus tenderness Throat exam: Present other (Pharyngeal erythema noted with PND) Respiratory Respiratory exam: Present normal lung sounds bilaterally; Absent respiratory distress or wheezes Cardiovascular Cardiovascular exam: Present regular rate, normal rhythm and normal heart sounds Neurological Exam Neurological exam: Present alert, oriented X3 and normal gait Medical Decision Making Medical Records Screening: Per USPSTF and CDC recommendations, given the prevalence of disease in our region, it is our hospital?s policy to screen for HIV and viral Hepatitis for all patients aged 18 and over and those with ongoing risk factors. [place] Inquiry Pt receiving controlled substance: No [place] was queried for this patient: No Vital Signs: 05/02/24 11:05 Temperature 99.0 F Temperature Source Oral Pulse Rate [Left Brachial] 89 Respiratory Rate 18 Blood Pressure [Left Arm] 138/88 Blood Pressure Mean [Left Arm] 104 Blood Pressure Source [Left Arm] Automatic Cuff Blood Pressure Position [Left Arm] Sitting 02 Sat by Pulse Oximetry 97 Oxygen Delivery Method Room Air Medical Decision Narrative: Patient states that she has take azithromycin and Medrol in aure past without reactions or complications
[2024-05-02 11:37] VITALS: BP 138/88; PULSE 89; RESP 18; TEMP 37.2; O2SAT 97
== END 2024-05-02 11:39 | disposition home or self-care (01) ==
PROVIDERS: Emergency Provider Nurse Practitioner; PCP Nurse Practitioner Family
DX: J01.90 Acute sinusitis, unspecified (principal); R09.81 Nasal congestion; H92.02 Otalgia, left ear; R51.9 Headache, unspecified; R05.9 Cough, unspecified; R07.0 Pain in throat
CPT/HCPCS: 99212; G0381

== ENCOUNTER 2024-08-11 08:53 | Outpatient (CLI) | payer MEDICARE, SELFPAY ==
--- NOTE | 2024-08-11 08:57 | XR_ITS ---
FINAL REPORT TECHNIQUE: Bone densitometry calculations of the lumbar spine and left hip were obtained. CLINICAL HISTORY: osteoporosis COMPARISON: 08/05/2022 FINDINGS: Using L1-4, the bone mineral density of the spine is 0.945 g/cm2, corresponding to T-score of -0.9. Using the left forearm, the bone mineral density of the mid is 0.408 g/cm2, corresponding to a T-score of -3.6. Using the right forearm, the bone mineral density of the mid is 0.374 g/cm?, corresponding to a T-score of -4.3 NOTE: T-score: Standard deviation compared with peak bone mass of young adult mean. *Following the recommendations of the International Society of Bone Densitometry, classification of hip BMD is based on the lower of two T-scores; total hip or femoral neck. IMPRESSION: Osteoporosis: Lowest T-score is at or below -2.5. This patient's T-score meets the World Health Organization criteria for osteoporosis. Reviewed, Interpreted and Dictated by Cornel Cox MD Transcribed by Nai Boateng Authenticated and [facility]
== END 2024-08-11 23:59 | disposition home or self-care (01) ==
LOC: RAD 08:57
PROVIDERS: PCP Nurse Practitioner Family; Visit Provider Nurse Practitioner Family
DX: M81.0 Age-related osteoporosis without current pathological fracture (principal)
CPT/HCPCS: 77080

== ENCOUNTER 2024-08-19 16:00 | Outpatient (CLI) | payer MEDICARE, SELFPAY ==
[2024-08-19 20:17] LABS: Coronavirus 19, PCR Not Detected (NotDetected); Human Rhinovirus Not Detected (NotDetected); Influenza A, PCR Not Detected (NotDetected); Influenza B, PCR Not Detected (NotDetected); Respiratory Syncytial Virus Not Detected (NotDetected)
== END 2024-08-19 23:59 | disposition home or self-care (01) ==
LOC: LAB.DROPOF 08-21 16:46
PROVIDERS: PCP Nurse Practitioner Family; Visit Provider Nurse Practitioner Family
DX: Z13.83 Encounter for screening for respiratory disorder NEC (principal)
CPT/HCPCS: 87631

== ENCOUNTER 2024-09-28 07:39 | Outpatient (CLI) | payer MEDICARE, SELFPAY ==
--- NOTE | 2024-09-28 | CA_ITS ---
APPROVED REPORT EXAM: Comprehensive 2D, Doppler, and color-flow Echocardiogram Bag Washer: WESTON Velasquez, RVS Ht: 5 ft 2 in Wt: 207lbs BSA: 1.94 BP: 128/77 mmHg Indications: Abnormal ECG, Shortness of Breath, Pre-Op colonoscopy 2D Dimensions IVSd 0.95 cm LVEF (Visual) 55.70 % PWd 0.90 cm LA Volume 45.80 mL LVDd 4.37 cm LA Volume Index 23.977710 mL/m2 (M/F) 16-34 LVDs 3.11 cm Left Atrium 3.57 cm M-Mode Dimensions LA Diam 3.20 cm (1.9-4.0) EPSs 0.87 cm TAPSE 1.61 (<1.7) LV Diastology E Decel Time 190 (160-240 msec) E/A Ratio 0.75 MED A' 9.00 cm/s LAT A' 8.80 cm/s Aortic Valve TEJAL Index 1.57 cm2/m2 AoV Peak Osvaldo. 116.0 (50-130 cm/s) AO Peak GR. 5.40 mmHg AO Mean GR. 2.60 (<5 mmHg) AO VTI 21.4 (18-25 cm) TEJAL (VTI) 3.13 (2.5-4.5 cm2) Mitral Valve MV A Velocity 77.0 (40-130 cm/s) E/A Ratio 0.75 Tricuspid Valve TR P. Velocity 182.00 cm/s RAP Estimate 10.00 mmHg RVSP 23.20 mmHg Left Ventricle The left ventricle is normal size. The left ventricular systolic function is normal. The left ventricular ejection fraction is within the normal range. There is increased LV wall thickness. There is normal LV segmental wall motion. Diastolic function is indeterminate. LVEF is 55%. Right Ventricle The right ventricle is normal size. The right ventricular systolic function is normal. Atria The left atrium is mildly dilated. The right atrium size is normal. There is no Doppler evidence of interatrial shunt. Aortic Valve Aortic valve is mildly thickened. There is no aortic valvular stenosis. Trace aortic regurgitation. Mitral Valve The mitral valve is normal in structure. No evidence of mitral valve stenosis. Mild mitral regurgitation. Tricuspid Valve Tricuspid valve is grossly normal in structure and function. Mild tricuspid regurgitation. RVSP is normal. Pulmonic Valve The pulmonary valve is normal in structure. Trace pulmonic regurgitation. Great Vessels The aortic root is normal in size. IVC is normal in size and collapses >50% with inspiration. Pericardium There is no pericardial effusion. Other Information Study Quality: Technically Difficult Conclusion Technically difficult study due to poor acoustic windows. Normal biventricular systolic function. Mild LA dilation. Mild MR, mild TR. Electronically signed by : Laurita Carr MD 09/30/2024 21:04:28
--- OUTSIDE RECORDS SUMMARY | 2024-09-28 07:41 | XMS_ITS ---
Author Organization Unknown Medications Medication Instructions Effective Dates (start - stop) Status furosemide 20 MG Oral Tablet 202 08-18-02T:00:00.000+00:00 - Completed escitalopram 20 MG Oral Tablet 2 [id number]:00:00.000+00:00 - Completed furosemide 20 MG Oral Tablet 202 08-16-01T:00:00.000+00:00 - Completed escitalopram 20 MG Oral Tablet 2 [id number]:00:00.000+00:00 - Completed - [id number]:00 :00.000+00:00 - Completed escitalopram 20 MG Oral Tablet 2 [id number]:00:00.000+00:00 - Completed escitalopram 20 MG Oral Tablet 2 [id number]:00:00.000+00:00 - Completed amoxicillin 500 MG Oral Capsule [id number]:00:00.000+00:00 - Completed celecoxib 200 MG Oral Capsule 20 04-06-27:00:00.000+00:00 - Completed acyclovir 400 MG Oral Tablet 08-17-19:00:00.000+00:00 - Completed furosemide 20 MG Oral Tablet 08-15-02:00:00.000+00:00 - Completed celecoxib 200 MG Oral Capsule 20 04-11-23:00:00.000+00:00 - Completed escitalopram 20 MG Oral Tablet 2 [id number]:00:00.000+00:00 - Completed ofloxacin 3 MG/ML Ophthalmic Solution [id number]:00:00.000+00:0 0 - Completed valacyclovir 1000 MG Oral Tablet [id number]:00:00.000+00:00 - Completed escitalopram 20 MG Oral Tablet 2 559-05-50Y96:00:00.000+00:00 - Completed escitalopram 20 MG Oral Tablet 2 [id number]:00:00.000+00:00 - Completed furosemide 20 MG Oral Tablet 202 08-17-01:00:00.000+00:00 - Completed celecoxib 200 MG Oral Capsule 20 04-04-10:00:00.000+00:00 - Completed escitalopram 20 MG Oral Tablet 2 525-41-72X90:00:00.000+00:00 - Completed escitalopram 20 MG Oral Tablet 2 131-13-53U56:00:00.000+00:00 - Completed furosemide 20 MG Oral Tablet 202 08-14-01:00:00.000+00:00 - Completed escitalopram 20 MG Oral Tablet 2 [id number]:00:00.000+00:00 - Completed escitalopram 20 MG Oral Tablet 2 [id number]:00:00.000+00:00 - Completed escitalopram 20 MG Oral Tablet 2 [id number]:00:00.000+00:00 - Completed - 6401-13-73L17:00 :00.000+00:00 - Completed levothyroxine sodium 0.125 M G Oral Tablet 0938-07-22D85:00:00.000+00:0 0 - Completed levothyroxine sodium 0.125 M G Oral Tablet [id number]:00:00.000+00:0 0 - Completed levothyroxine sodium 0.125 M G Oral Tablet [id number]:00:00.000+00:0 0 - Completed levothyroxine sodium 0.125 M G Oral Tablet [id number]:00:00.000+00:0 0 - Completed levothyroxine sodium 0.125 M G Oral Tablet [id number]:00:00.000+00:0 0 - Completed levothyroxine sodium 0.125 M G Oral Tablet [id number]:00:00.000+00:0 0 - Completed oxycodone hydrochloride 5 MG Oral Tablet [id number]:00:00.000+00:0 0 - Completed levothyroxine sodium 0.125 M G Oral Tablet [id number]:00:00.000+00:0 0 - Completed acyclovir 400 MG Oral Tablet 07-25-10:00:00.000+00:00 - Completed levothyroxine sodium 0.125 M G Oral Tablet [id number]:00:00.000+00:0 0 - Completed acyclovir 400 MG Oral Tablet 08-12-28:00:00.000+00:00 - Completed levothyroxine sodium 0.125 M G Oral Tablet [id number]:00:00.000+00:0 0 - Completed acyclovir 400 MG Oral Tablet 07-24-09:00:00.000+00:00 - Completed levothyroxine sodium 0.125 M G Oral Tablet [id number]:00:00.000+00:0 0 - Completed levothyroxine sodium 0.125 M G Oral Tablet [id number]:00:00.000+00:0 0 - Completed levothyroxine sodium 0.125 M G Oral Tablet [id number]:00:00.000+00:0 0 - Completed prednisone 20 MG Oral Tablet 07-25-20:00:00.000+00:00 - Completed 12 HR bupropion hydrochlorid e 90 MG / naltrexone hydrochloride 8 MG Extended Release Oral Tablet [Contrave] [id number]:00:00.000+00:0 0 - Completed 12 HR bupropion hydrochlorid e 90 MG / naltrexone hydrochloride 8 MG Extended Release Oral Tablet [Contrave] [id number]:00:00.000+00:0 0 - Completed 12 HR bupropion hydrochlorid e 90 MG / naltrexone hydrochloride 8 MG Extended Release Oral Tablet [Contrave] [id number]:00:00.000+00:0 0 - Completed 12 HR bupropion hydrochlorid e 90 MG / naltrexone hydrochloride 8 MG Extended Release Oral Tablet [Contrave] [id number]:00:00.000+00:0 0 - Completed 12 HR bupropion hydrochlorid e 90 MG / naltrexone hydrochloride 8 MG Extended Release Oral Tablet [Contrave] [id number]:00:00.000+00:0 0 - Completed 12 HR bupropion hydrochlorid e 90 MG / naltrexone hydrochloride 8 MG Extended Release Oral Tablet [Contrave] [id number]:00:00.000+00:0 0 - Completed Patient Care team information Name Category Status Period Participants - - Proposed period not known -
== END 2024-09-28 23:59 | disposition home or self-care (01) ==
LOC: RT 07:40
PROVIDERS: PCP Nurse Practitioner Family; Visit Provider Physician Assistant
DX: I51.89 Other ill-defined heart diseases (principal); R94.31 Abnormal electrocardiogram [ECG] [EKG]; G47.33 Obstructive sleep apnea (adult) (pediatric)
CPT/HCPCS: 93306

== ENCOUNTER 2024-10-09 15:19 | Outpatient (CLI) | payer MEDICARE, SELFPAY ==
--- OUTSIDE RECORDS SUMMARY | 2024-10-09 15:24 | XMS_ITS | Data Portability ---
Author Organization [facility] [place] [facility] Address [address] [place] [address] Care Team Providers Care Field Staff Manager Name Role Phone CYNDEE DELIO Referring Provider [phone] Assessment Encounter Date Assessment Date Assessment LastModified by Organization Details LastModified Time 05/31/2023 05/31/2023 Dagmar presents today status post L4-S1 Laminectomy and Fusion with Screw Augmentation and L5 Kyphoplasty 05/13. Pt glue has already come off and her incision is well healed. No issues or complications present at this time. Pt has stated home health therapy came to her home but said they couldn't do much for her but out patient PT maybe more beneficial. Per Richa TURNER an order will be sent to [facility]. Not available 05/31/2023 13:48:44 Plan of Treatment Reminders Order Date Submit Date Provider Last Modified By Organization Details Last Modified Time Details Appointments None recorded. Lab None recorded. Referral physical therapist referral - Recent surgery. L4-S1 Laminectomy and Fusion with Screw Augmentatio n and L5 Kyphoplasty 05/13 023 BELKIS In [facility] ([facility]), [address] , [place], [address], 09:58:21 Procedures None recorded. Surgeries None recorded. Imaging None recorded. Medication Orders None recorded. Patient TargetsNo targets recorded. Patient InstructionsNo instructions recorded. Reason for Referral Physical Therapist Referral for Postoperative care Recent surgery. L4-S1 Laminectomy and Fusion with Screw Augmentation and L5 Kyphoplasty 05/13 Referring Physician: Precious Chaudhry, Neurosurgery, Encounter Date: 05/31/2023 Results Created Date Observation Date Name Description Value Unit Range Abnormal Flag Note LastModifiedBy Organization Detail LastModifiedTime 04/28/20 23 04/28/2023 MRI, lumba r spine , w/o contr ast No observ ation record ed. [facility] [address], [place], [address], 05/11/2023 14:49:58 06/21/19 24 06/21/2023 XR, lumbo sacra l spine , 2 or 3 view [place] [facility] [address] [place] [address] [place] [address] Patimargie t Name: DAGMAR solares : 960 Michaela solares Orderi ng Provid er: PRECIOUS TIMONE Y EXAM DATE: 2023 EXAM: XR LUMBAR AP/LAT CLINIC AL INFORM ATION: Postop erativ e. IMAGES PROVID ED: AP, latera l, and coned- down views of the lumbar spine. COMPAR YONNY: None. FINDIN GS AND IMPRES VANESSA: Spinal fusion is noted at L4-S1 level. Surgic al hardwa re is satisf actori ly placed . No eviden ce of loosen ing or infect ion is seen. Degene rative change s are seen at other levels . Incide ntal note is made of bilate ral total hip replac ement. Interp reted By: Gerhard Hernandez MD Electr onical ly Signed By: Gerhard Hernandez MD on 06/21/19 24 1:34 PM [facility] Radiology [facility] [address] [place] [address], [phone], 06/28/2023 14:59:14 09/20/19 24 09/20/2023 XR, lumbo sacra l spine , 2 or 3 view [facility] [address] [place] [address] [place] [address] Patien t Name: DAGMAR solares : 960 Michaela solares Orderi ng Provid er: PRECIOUS TIMONE Y EXAM DATE: 2023 EXAM: XR LUMBAR AP/LAT HISTOR Y: Follow -up of prior surger y COMPAR YONNY: 06/21/19 24 FINDIN GS: Again seen is prior bulk driver 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 There our pedicl e screws and bulk driver ior fusion hardwa re in place. There is no eviden ce of loosen ing of the hardwa re. There is mild anteri or listhe sis of L4 on L5 and L5 on S1. There is bulk driver ior listhe sis of L1 on L2, L2 on L3 and L3 on L4. There is mild anteri or margin al spurri ng. No fractu re is identi fied. IMPRES VANESSA: 1. There is prior bulk driver ior fusion from L4 throug h S1. Interp reted By: Fahad kaur MD Electr onical ly Signed By: Fahad kaur MD on 09/20/19 12:43 PM [facility]iology [address], [address], 09/22/2023 11:33:04 Result Notes None recorded. Procedures Surgical History None recorded. Imaging Results Imaging Date Name Status LastModified by Organiz ation Details LastModified Time 04/28/2023 MRI, lumbar spine, w/o contrast completed [place] [address], [place], [address], 05/11/2023 14:49:58 06/21/2023 XR, lumbosacral spine, 2 or 3 view completed [facility] Radiology [facility] [address] [place] [address], [phone], 06/28/2023 14:59:14 09/20/2023 XR, lumbosacral spine, 2 or 3 view completed [facility] [address], [address], 09/22/2023 11:33:04 Procedure Notes None recorded. Medical Equipment None Reported. Allergies Allergen ID Allergen Name Allergen Category Reaction Reaction Severity Criticality Documentation Date Start Date Code Code System Note Provider Name and Address Organization Details Recorded Time 262034 Product containin g penicilli n (product) medicatio n Not available Not available Not available 04/14/2023 55871 8001 SNOMED Maritza Ocampo [facility] 3 11:12:16 Medications Name Sig Start Date Stop Date Status Note LastModified by Organization Details LastModified Time celecoxib 200 mg capsule active Not Available Not Available Not Available cyclobenzap rine 10 mg tablet Take 1 tablet 3 times a day by oral route. active Not Available Not Available No t Available amoxicillin 500 mg capsule 04/15 completed Not Available Not Available Not Available promethazin e-DM 6.25 mg-15 mg/5 mL oral syrup 05/11 completed Not Available Not Available Not Available azithromyci n 250 mg tablet active Not Available Not Available Not Available ofloxacin 0.3 % eye drops 04/15 completed Not Available Not Available Not Available fluconazole 150 mg tablet active Not Available Not Available Not Available valacyclovi r 1 gram tablet 04/15 completed Not Available Not Available Not Available prednisone 20 mg tablet active Not Available Not Available Not Available acyclovir 400 mg tablet 04/15 completed Not Available Not Available Not Available tramadol 50 mg tablet Take 1 tablet every 6 hours by oral route as needed. 05/11 completed Not Available Not Available Not Available levothyroxi ne 125 mcg tablet active Not Available Not Available Not Available gabapentin 300 mg capsule Take 1 capsule 3 times a day by oral route. 2023 active Not Available Not Available Not Avai lable omeprazole 20 mg capsule,del ayed release active Not Available Not Available Not Available furosemide 20 mg tablet active Not Available Not Available Not Available levofloxaci n 500 mg tablet active Not Available Not Available Not Available methylpredn isolone 4 mg tablets in a dose pack Take 1 tablet by oral route. active Not Available Not Available No t Available albuterol sulfate HFA 90 mcg/actuati on aerosol inhaler active Not Available Not Available Not Available cefdinir 300 mg capsule active Not Available Not Available Not Available oxycodone 5 mg tablet 04/15 completed Not Available Not Available Not Available escitalopra m 20 mg tablet active Not Available Not Available Not Available Contrave 8 mg-90 mg tablet,exte nded release TAKE 1 TABLET BY MOUTH ONCE DAILY active Not Available Not Available No t Available BinaxNOW COVID-19 Ag Self Test kit Use as Directed on the Package 05/11 completed Not Available Not Available Not Available Vitals Date Recorded Body height Body mass index (BMI) Body weight Systolic blood pressure Diastolic blood pressure Provider Name and Address Organization Details Last Updated DateTime 05/03/2023 154.94 cm 41 kg/m2 63335.5 4 g 140 mm[Hg] 80 mm[Hg] [facility] 3 11:20:10 Date Recorded Body height Body mass index (BMI) Body weight Systolic blood pressure Diastolic blood pressure Provider Name and Address Organization Details Last Updated DateTime 06/21/2023 154.94 cm 41 kg/m2 96707.5 4 g 138 mm[Hg] 84 mm[Hg] [facility] 4 10:07:20 Date Recorded Body height Body mass index (BMI) Body weight Systolic blood pressure Diastolic blood pressure Provider Name and Address Organization Details Last Updated DateTime 09/20/2023 154.94 cm 41 kg/m2 31812.5 4 g 134 mm[Hg] 82 mm[Hg] [facility] 4 10:22:32 Social History None recorded. Functional Status None recorded. Mental Status None recorded. Family History Relationship Description Onset Age of this Age Resolved Age Notes LastModified by Organization Details LastModified Time Unspecified Relation Family history of malignant neoplasm Not available 11:12:40 Medical History No medical history recorded. Gynecological HistoryNo gynecological history recorded. Obstetrics History GPAL:G 0 P 0 0 0 0 Past Encounters Encounter ID Performer Location Encounter Start Date Encounter Closed Date Diagnosis/Indication Diagnosis SNOMED-CT Code Diagnosis ICD10 Code Diagnosis Note [id number] [place] [address] 09/14/2016 19:30:45 09/14/2016 19:30:45 [id number] PRECIOUS CHAUDHRY MD NE[facility]URG [facility] [address] [place] [address] 04/14/2023 10:51:21 04/16/2023 04:19:26 Lumbar radiculopathy [id number] M54.16 I would like to go ahead and order her an MRI of her lumbar spine as soon as possible. We will also provide her with a Medrol Dosepak. I will prescribe her tramadol to help with the pain. We will order some home physical therapy. I would like to see her back as soon as her studies are available to us. I have counseled her on this. I have answered all her questions. She is happy with the management plan. [id number] PRECIOUS CHAUDHRY MD NEUROSURG JESSICA [facility] [address] [place] [address] 05/03/2023 10:55:52 05/04/2023 05:07:20 Lumbar radiculopathy 751101695 M54.16 I discussed her radiograph ic findings. She is a surgical candidate. I have advocated for a lumbar laminectom y with fusion due to the listhesis at L4-5 and L5-S1 as well as hopefully an L5 kyphoplast y. We will likely have to augment the screws. We will use navigation . I have outlined the risk and benefits associate with surgery and she has elected to proceed. She has stated she will discontinu e her Celebrex 7 days prior to procedure. I have answered all her questions. She is happy with the management plan. [id number] [facility] SURGERY SCHEDULE [address] [place] [address] 05/18/2023 08:36:56 05/26/2023 12:56:40 [id number] Maritza quiroz NEUROSURG [facility] [address] [place] [address] 05/31/2023 13:03:03 06/04/2023 04:52:52 Postoperative care [id number] Z48.89 [id number] PRECIOUS CHAUDHRY MD NEUROSURG JESSICA [facility] [address] [place] [address] 06/21/2023 09:48:31 06/22/2023 04:46:17 Postoperative care [id number] Z48.89 Patient has done fantastic. I am very pleased with her results. She inquired about aqua therapy and I think this would be excellent for her. I would like to continue to follow her for 3 months and see her back with x-rays. She knows to contact us sooner if any new issues should arise. [id number] PRECIOUS CHAUDHRY MD NEUROSURG JESSICA [facility] [address] [place] [address] 09/20/2023 09:33:02 09/21/2023 04:44:08 Lumbar spondylosis [id number] M47.896 I discussed the radiograph ic findings. I think she continues to do very well and at this point release her from our care. I have answered all her questions. She knows to contact us if any new issues should arise. Health Concerns Section Related Observation LastModified by Organization Detai ls LastModified Time None Recorded Concern Status LastModified by Organization Details LastModified Time None Recorded Advance Directives Directive None Recorded Payers Encounter Date Sequence Insurance Name Policy Number Policy Salazar Covered Member ID Salazar Member ID Guarantor Name 05/03/2023 1 [place] [id number] Dagmar Caitlyn Mcdaniel [id number] Dagmar Caitlyn Mcdaniel 05/13/2023 1 [place] [id number] Dagmar Caitlyn Mcdaniel [id number] Dagmar Brady Jonas 05/31/2023 1 [place] [id number] Dagmar Caitlyn Mcdaniel [id number] Dagmar Brady Jonas 06/21/2023 1 [place] [id number] Dagmar Mcdaniel [id number] Dagmar Caitlyn Mcdaniel 09/20/2023 1 [place] [id number] Dagmar Caitlyn Mcdaniel [id number] Dagmar Caitlyn Mcdaniel Notes Date Note Type Note Provider Name and Address Organization Details Recorded Time 05/03/2023 text/html Patient is a 62-year-old woman here today for continued follow-up with low back and lower extremity pain. Since her last appointment she has received new imaging. She states the tramadol and the steroid oral pack has not helped. She was not able to go to physical therapy due to pain. She is ambulating now in a wheelchair. She is tearful today due to her extreme pain no other neurologic complaints. Imaging: Impression reviewed her lumbar MRI which demonstrates severe lumbar stenosis L4-5 L5-S1 with an acute L5 compression fracture PRECIOUS CHAUDHRY MD [address] [place] [address], [phone], [facility] 05/03/2023 13:02:14 06/21/2023 text/html Patient is a jj y pleasant 62-year-old woman here today for postoperative follow-up after her multilevel lumbar laminectomy fusion with vertebral augmentation. She has been doing very well. She has no radicular pain. She states she does have some dull aches in her low back with prolonged use when she has been up and about for the day. She is weaned off all pain medication. She ambulates with a walker but feels as if she can now ambulate with a cane. She is would like to wean from her brace. She did home therapy and now she is in outpatient physical therapy. She is very happy with her progress. Imaging: None I personally reviewed her x-rays which demonstrate intact hardware good alignment PRECIOUS CHAUDHRY MD [address] [place] [address] [place], [address], [facility] 06/21/2023 12:50:04 09/20/2023 text/html Patient is a 63-year-old woman here today for continued follow-up of her L4-5 to S1 fusion performed on 13 May. She continues to do very well. She has some stiffness in her low back but has had complete resolution of lower extremity pain. She feels almost full strength after completing therapy and returning to work. She is no new neurologic complaints. Imaging: Impression reviewed her x-rays which demonstrate intact hardware alignment PRECIOUS CHAUDHRY MD [address] [place] [address] [place], [address], [facility] 09/20/2023 12:52:21 OBGyn Episode No OBEpisode recorded.
[2024-10-09 15:25] VITALS: BP 148/81; PULSE 70; RESP 16; TEMP 36.7; O2SAT 100
[2024-10-09] MEDS: ZOLEDRONIC ACID/MANNITOL-WATER 5 MG/100 ML PGGYBK.BTL 400 MG IV (15:27)
[2024-10-09] MEDS: SODIUM CHLORIDE 0.9% 10ML FLUSH SYRINGE 10 ML IV (15:31)
[2024-10-09] MEDS: SODIUM CHLORIDE 0.9% 50ML BAG 50 ML IV (15:32)
[2024-10-09 15:51] VITALS: BP 146/87; PULSE 79; RESP 16; TEMP 36.7; O2SAT 100
== END 2024-10-09 15:54 | disposition home or self-care (01) ==
LOC: INF 15:22
PROVIDERS: PCP Nurse Practitioner Family; Visit Provider Nurse Practitioner Family
DX: M81.0 Age-related osteoporosis without current pathological fracture (principal)
CPT/HCPCS: 96374; J3489

== ENCOUNTER 2024-10-16 09:16 | Day surgery (SDC) | payer MEDICARE, SELFPAY ==
[2024-10-11 17:20] VITALS: BMI 37.3
[2024-10-16] MEDS: LACTATED RINGERS 1000ML 1,000 ML 50 ML IV (10:12)
[2024-10-16 10:16] VITALS: BP 142/73; PULSE 73; RESP 18; TEMP 36.9; O2SAT 97
--- NOTE | 2024-10-16 10:29 | EXP.ANES.CKL ---
[facility] Disclaimer: The information contained in this section may have been updated after the patient was seen, as this information can be updated by other users. Medical History Acute viral syndrome Sinusitis Left ankle pain Left leg pain Left foot pain Sinusitis Skin rash Obesity, morbid, BMI 40.0-49.9 Otitis media Sleep apnea Obesity BMI 39.0-39.9,adult Edema Lumbar back pain with radiculopathy affecting left lower extremity Lumbar back pain with radiculopathy affecting right lower extremity Anterolisthesis of lumbar spine Compression fracture of L5 vertebra Acute bronchitis URI (upper respiratory infection) Sinusitis Otitis media Acute maxillary sinusitis ROM (right otitis media) Sore throat Left otitis media Hypokalemia Anemia Acute hypokalemia Chest pain History of asthma Multiple pulmonary nodules Shortness of breath Dyspnea on exertion Right heart enlargement MRSA infection 2014 abdomen Conjunctivitis Dyspnea Rheumatic fever Scarlet fever Establishing care with new doctor, encounter for Encounter for screening for osteoporosis BMI 40.0-44.9, adult FAY (obstructive sleep apnea) Right tibial fracture repaired 2011 Overactive bladder Arthritis Hypothyroid Mesenteric adenitis Flank pain Surgical History History of esophagogastroduodenoscopy (EGD) 08/[address] 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 Ari Lan, [facility] History of cholecystectomy History of appendectomy H/O tubal ligation H/O thyroidectomy 90% removed Family History Father Cancer skin Parkinsons disease Mother A-fib Brother Cancer skin Social History Smoking Status: Never smoker alcohol intake: current alcohol intake frequency: holidays/special occasions only substance use type: denies use current occupational status: retired Travel in the last 8 weeks?: None household members: family housing: house marital status: Have you lived/traveled outside [place] in past 30 days?: No Contact w/someone who lives/traveled outside US past 30 days?: No Exposure to someone with infectious disease in past 14 days?: No Do you have a fever (greater than 100.4 F or 38 C)?: No Have you tested positive for COVID-19?: No Exposed to someone with COVID-19 in past 14 days?: No Do you have a sore throat?: No Do you have a cough?: No Do you have any weakness?: No Do you have any diarrhea?: No Are you experiencing any unusual bleeding?: No Do you have any muscle aches/pain?: No Do you have any abdominal pain?: No Are you experiencing loss of taste or smell?: No [facility] Anesthesia Checklist Patient Identification Patient Identification: Arm Band Structural Data Admitted From: Home Planned Operative Procedure/s: Colonoscopy Consent for Planned Operative Procedure(s) Verified: Yes Verified Documents: Surgical Consent and History and Physical NPO Status Verified Time NPO: 07:10 (finished prep) Additional verifications Anesthesia Reactions: No Airway Assessment Mallampati Score:: Class II C-Spine Mobility Assessed: Yes TMJ Mobility Assessed: Yes Dentition: Good Dentition Neurological Assessment Level of Consciousness: Awake, Alert and Appropriate Anesthesia Plan Anesthesia Risk discussed: Yes Anesthesia Plan: Verified ASA Class: II Anesthesia Type: MAC
--- NOTE | 2024-10-16 10:50 | P.HP_ITS ---
History of Present Illness *Admission Date: 10/16/24 *History of present illness: Mrs. Mcdaniel is a 64-year-old female who is here for screening colonoscopy. The examination is deemed medically necessary for screening colonoscopy. The patient has been seen, interviewed and examined prior to the procedure by both m yself and the anesthesia provider. [facility] Disclaimer: The information contained in this section may have been updated after the patient was seen, as this information can be updated by other users. Medical History Acute viral syndrome Sinusitis Left ankle pain Left leg pain Left foot pain Sinusitis Skin rash Obesity, morbid, BMI 40.0-49.9 Otitis media Sleep apnea Obesity BMI 39.0-39.9,adult Edema Lumbar back pain with radiculopathy affecting left lower extremity Lumbar back pain with radiculopathy affecting right lower extremity Anterolisthesis of lumbar spine Compression fracture of L5 vertebra Acute bronchitis URI (upper respiratory infection) Sinusitis Otitis media Acute maxillary sinusitis ROM (right otitis media) Sore throat Left otitis media Hypokalemia Anemia Acute hypokalemia Chest pain History of asthma Multiple pulmonary nodules Shortness of breath Dyspnea on exertion Right heart enlargement MRSA infection 2015 abdomen Conjunctivitis Dyspnea Rheumatic fever Scarlet fever Establishing care with new doctor, encounter for Encounter for screening for osteoporosis BMI 40.0-44.9, adult FAY (obstructive sleep apnea) Right tibial fracture repaired 2011 Overactive bladder Arthritis Hypothyroid Mesenteric adenitis Flank pain Surgical History History of esophagogastroduodenoscopy (EGD) 08/[address] Ari Lan at [facility] [place] H/O: hysterectomy History of 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 01/2017 Dr. Ari Lan, [facility] History of cholecystectomy History of appendectomy H/O tubal ligation H/O thyroidectomy 90% removed Family History Father Cancer skin Parkinsons disease Mother A-fib Brother Cancer skin Social History Smoking Status: Never smoker alcohol intake: current alcohol intake frequency: holidays/special occasions only substance use type: denies use current occupational status: retired Travel in the last 8 weeks?: None household members: family housing: house marital status: Have you lived/traveled outside US in past 30 days?: No Contact w/someone who lives/traveled outside US past 30 days?: No Exposure to someone with infectious disease in past 14 days?: No Do you have a fever (greater than 100.4 F or 38 C)?: No Have you tested positive for COVID-19?: No Exposed to someone with COVID-19 in past 14 days?: No Do you have a sore throat?: No Do you have a cough?: No Do you have any weakness?: No Do you have any diarrhea?: No Are you experiencing any unusual bleeding?: No Do you have any muscle aches/pain?: No Do you have any abdominal pain?: No Are you experiencing loss of taste or smell?: No Other Medical History Have you received the Flu Vaccine for this season: Yes Have you received the Pneumonia Vaccine: Yes Review of Systems Review of Systems Review of systems (narrative): Negative *Cardiovascular Comments: Negative *Gastrointestinal Comments: Negative *Genitourinary Comments: Negative *Musculoskeletal Comments: Negative *Neurologic Comments: Negative Meds Home Medications and Allergies Home Medications ?Medication ?Instructions ?Recorded ?Confirmed ?Type celecoxib 200 mg capsule (Celebrex) 200 mg PO BID #180 caps 06/27/24 10/16/24 Rx escitalopram oxalate 20 mg tablet 20 mg PO DAILY 08/07/24 10/16/24 History furosemide 20 mg tablet 20 mg PO DAILY 08/10/24 10/16/24 History levothyroxine 125 mcg tablet 125 mcg PO DAILY 08/10/24 10/16/24 History omeprazole 40 mg capsule,delayed 40 mg PO DAILY #90 caps 08/10/24 10/16/24 Rx release tirzepatide (weight loss) 2.5 2.5 mg (0.5 mL) SQ WEEKLY #2 mL 09/07/24 10/16/24 Rx mg/0.5 mL subcutaneous pen injector (Zepbound) levocetirizine 5 mg tablet See Rx Instructions .Route 09/19/24 10/16/24 Rx .COMPLEX #90 tabs zoledronic acid 5 mg/100 mL in 1 ea IV ONCE 10/11/24 10/16/24 History mannitol 5 %-water intravenous piggybck (Reclast) New Prescriptions to Start Prescriptions: Allergies Allergy/AdvReac Type Severity Reaction Status Date / Time Penicillins Allergy Unknown LOCAL Verified 10/16/24 10:16 REACTION TO INJECTION Exam Data for Last 24 hours Vital signs and Labs for Last 24 Hours: Temp Pulse Resp BP Pulse Ox O2 Del Method 98.4 F 73 18 142/73 H 97 Room Air 10/16/24 10:16 10/16/24 10:16 10/16/24 10:16 10/16/24 10:16 10/16/24 10:16 10/16/24 10:16 *Routine HEENT Exam Head: Present normocephalic Eye: Present EOMI and PERRL ENT: Present mucous membranes moist *Routine Neck Exam Neck: Present supple *Routine Respiratory Exam Respiratory: Present CTA bilaterally *Routine Cardiovascular Exam Cardiovascular: Present RRR *Routine Abdominal Exam Abdominal: Present soft and normoactive bowel sounds; Absent tenderness *Routine Rectal Exam Rectal:: deferred *Routine Genitalia Exam Genitalia:: deferred *Routine Extremities Exam Extremities: Absent cyanosis, clubbing or edema *Routine Skin Exam Skin: Present warm; Absent rash *Routine Neurological Exam Neurological: Present alert and oriented X3 Assessment and Plan *Assessment and plan (1) Screening for colon cancer: Status: Acute Category: Medical Code(s): Z12.11 - Encounter for screening for malignant neoplasm of colon Plan A/P: 1. Screening for colon cancer is the preprocedural diagnosis. The patient will be anesthetized/sedated using MAC sedation. The patient has been seen and examined. Cardiac and lung assessment prior to the examination is stable. Proceed with planned screening colonoscopy.
--- NOTE | 2024-10-16 10:58 | HMH.PROCNOTE ---
[facility] Procedure Note Date: 10/16/24 Time: 11:14 Procedure Note:: Colonoscopy Procedure Report: Colonoscopy with cold snare polypectomy Endoscopist: Juventino Juares II, MD Referring physician: SENAIT Oscar Date of Procedure: October 16, 2024 Equipment: Olympus 190 variable stiffness pediatric colonoscope Sedation: MAC sedation Indication: Mrs. Mcdaniel is a 64-year-old female who is here for screening colonoscopy. Her last colonoscopy was 10 years ago or more. She reports no abdominal pain, weight loss, change in her bowel habits or rectal bleeding. She reports no family history of colon cancer. Procedure: Prior to the procedure, a history and physical exam was performed, and patient's medications and allergies were reviewed. The risks, benefits and alternatives of the sedation and procedure were discussed with the patient. All questions were answered and informed consent was obtained. The patient was brought to the procedure room. Patient identification and proposed procedure were verified by the physician and the nurse. The patient was placed in a left lateral decubitus position and the scope was passed under direct vision. Throughout the procedure, the patient's blood pressure, pulse, and oxygen saturations were monitored continuously. The colonoscopy was accomplished without difficulty. The patient tolerated the procedure well. Findings: On digital rectal examination there was normal rectal tone. There were no external hemorrhoids. The colonoscope was introduced through the anal canal to the rectum and advanced to the cecum. The ileocecal valve and appendiceal orifice were identified. The scope was advanced a short distance into the ileum which appeared grossly normal. The scope was then withdrawn into the colon. The cecum, ascending and transverse colon and mucosa were grossly normal. There were scattered diverticuli throughout the descending and sigmoid colon (LEFT colon). There was a single 4 mm polyp in the rectosigmoid removed via cold snare polypectomy. The rectum itself was normal. Upon retroflexion within the rectum there were grade 2 internal hemorrhoids. The preparation was excellent throughout with Atkins Preparation Score of 9. The cecal time was 12 minutes. Impression: 1. Diminutive rectosigmoid polyp (4 mm) 2. Left-sided diverticulosis 3. Grade 2 internal hemorrhoids Plan: I will follow-up the polyp histology and recommend repeat surveillance colonoscopy again in 7 to 10 years based upon the pathology. I would encourage psyllium bulking fiber supplementation on a long-term daily maintenance basis.
[2024-10-16 11:00] VITALS: O2SAT 100
[2024-10-16 11:16] VITALS: BP 101/53; PULSE 57; RESP 18; TEMP 36.4; O2SAT 100
[2024-10-16 11:26] VITALS: BP 126/77; PULSE 61; RESP 18; O2SAT 100
[2024-10-16 11:36] VITALS: BP 118/91; PULSE 65; RESP 17; O2SAT 100
[2024-10-16 11:46] VITALS: BP 156/73; PULSE 65; RESP 17; O2SAT 100
== END 2024-10-16 11:55 | disposition home or self-care (01) ==
PROVIDERS: PCP Nurse Practitioner Family; Visit Provider Internal Medicine Gastroenterology
PROC: 0DJD8ZZ Inspection of Lower Intestinal Tract, Via Natural or Artificial Opening Endoscopic (ICD-10-PCS; CPT 45378; principal; 2024-10-16 11:00)
DX: Z12.11 Encounter for screening for malignant neoplasm of colon (principal); K63.5 Polyp of colon; K57.30 Diverticulosis of large intestine without perforation or abscess without bleeding; K64.1 Second degree hemorrhoids
CPT/HCPCS: 45385; J7120

== ENCOUNTER 2024-12-19 10:49 | Outpatient (CLI) | payer MEDICARE, SELFPAY ==
--- NOTE | 2024-12-19 10:52 | XR_ITS ---
FINAL REPORT CLINICAL HISTORY: Fall, left knee pain COMPARISON: None FINDINGS: LEFT KNEE 3 views of the left knee were obtained. There is no acute fracture or dislocation. There is moderate narrowing of the medial and patellofemoral compartments, with small osteophytes involving the undersurface of the patella. A small joint effusion is present. There is prepatellar soft tissue edema. On the lateral view, there is a slight cortical offset of the inferior anterior patellar cortex, that most likely does not represent an acute fracture. However, if symptoms persist, further imaging could be performed. IMPRESSION: Moderate degenerative change primarily in the medial and patellofemoral compartments. Slight cortical offset of the inferior anterior patellar cortex, that most likely does not represent an acute fracture. However, if symptoms persist, further imaging could be performed. Reviewed, Interpreted and Dictated by Thaddeus Camilo MD Transcribed by Nai Boateng Authenticated and [facility]
--- OUTSIDE RECORDS SUMMARY | 2024-12-19 10:53 | XMS_ITS ---
Author Organization Unknown Medications Medication Instructions Effective Dates (start - stop) Status furosemide 20 MG Oral Tablet 202 08-18-02T:00:00.000+00:00 - Completed escitalopram 20 MG Oral Tablet 2 [id number]:00:00.000+00:00 - Completed furosemide 20 MG Oral Tablet 202 08-16-01T:00:00.000+00:00 - Completed escitalopram 20 MG Oral Tablet 2 957-15-46G95:00:00.000+00:00 - Completed - 4348-79-87Z53:00 :00.000+00:00 - Completed escitalopram 20 MG Oral Tablet 2 019-77-20P86:00:00.000+00:00 - Completed escitalopram 20 MG Oral Tablet 2 437-88-54O86:00:00.000+00:00 - Completed amoxicillin 500 MG Oral Capsule 1353-89-39X87:00:00.000+00:00 - Completed celecoxib 200 MG Oral Capsule 20 04-06-27:00:00.000+00:00 - Completed acyclovir 400 MG Oral Tablet 08-17-19:00:00.000+00:00 - Completed furosemide 20 MG Oral Tablet 08-15-02:00:00.000+00:00 - Completed celecoxib 200 MG Oral Capsule 20 04-11-23:00:00.000+00:00 - Completed escitalopram 20 MG Oral Tablet 2 [id number]:00:00.000+00:00 - Completed ofloxacin 3 MG/ML Ophthalmic Solution [id number]:00:00.000+00:0 0 - Completed valacyclovir 1000 MG Oral Tablet [id number]:00:00.000+00:00 - Completed escitalopram 20 MG Oral Tablet 2 507-73-71M56:00:00.000+00:00 - Completed escitalopram 20 MG Oral Tablet 2 [id number]:00:00.000+00:00 - Completed furosemide 20 MG Oral Tablet 202 08-17-01:00:00.000+00:00 - Completed celecoxib 200 MG Oral Capsule 20 04-04-10:00:00.000+00:00 - Completed escitalopram 20 MG Oral Tablet 2 [id number]:00:00.000+00:00 - Completed escitalopram 20 MG Oral Tablet 2 204-57-21U25:00:00.000+00:00 - Completed furosemide 20 MG Oral Tablet 202 08-14-01:00:00.000+00:00 - Completed escitalopram 20 MG Oral Tablet 2 120-33-19T98:00:00.000+00:00 - Completed escitalopram 20 MG Oral Tablet 2 075-24-25E13:00:00.000+00:00 - Completed escitalopram 20 MG Oral Tablet 2 721-77-17U44:00:00.000+00:00 - Completed - 1105-58-57W16:00 :00.000+00:00 - Completed levothyroxine sodium 0.125 M G Oral Tablet [id number]:00:00.000+00:0 0 - Completed levothyroxine sodium 0.125 M G Oral Tablet [id number]:00:00.000+00:0 0 - Completed levothyroxine sodium 0.125 M G Oral Tablet 4825-93-51M05:00:00.000+00:0 0 - Completed levothyroxine sodium 0.125 M G Oral Tablet 5253-79-63I19:00:00.000+00:0 0 - Completed levothyroxine sodium 0.125 M G Oral Tablet [id number]:00:00.000+00:0 0 - Completed levothyroxine sodium 0.125 M G Oral Tablet [id number]:00:00.000+00:0 0 - Completed oxycodone hydrochloride 5 MG Oral Tablet [id number]:00:00.000+00:0 0 - Completed levothyroxine sodium 0.125 M G Oral Tablet [id number]:00:00.000+00:0 0 - Completed acyclovir 400 MG Oral Tablet 07-25-10:00:00.000+00:00 - Completed levothyroxine sodium 0.125 M G Oral Tablet [id number]:00:00.000+00:0 0 - Completed acyclovir 400 MG Oral Tablet 08-12-28:00:00.000+00:00 - Completed levothyroxine sodium 0.125 M G Oral Tablet [id number]:00:00.000+00:0 0 - Completed acyclovir 400 MG Oral Tablet 07-24-09:00:00.000+00:00 - Completed levothyroxine sodium 0.125 M G Oral Tablet [id number]:00:00.000+00:0 0 - Completed levothyroxine sodium 0.125 M G Oral Tablet [id number]:00:00.000+00:0 0 - Completed levothyroxine sodium 0.125 M G Oral Tablet [id number]:00:00.000+00:0 0 - Completed prednisone 20 MG Oral Tablet 07-25-20:00:00.000+00:00 - Completed 12 HR bupropion hydrochlorid e 90 MG / naltrexone hydrochloride 8 MG Extended Release Oral Tablet [Contrave] [id number]:00:00.000+00:0 0 - Completed 12 HR bupropion hydrochlorid e 90 MG / naltrexone hydrochloride 8 MG Extended Release Oral Tablet [Contrave] [id number]:00:00.000+00:0 0 - Completed 12 HR bupropion hydrochlorid e 90 MG / naltrexone hydrochloride 8 MG Extended Release Oral Tablet [Contrave] [id number]:00:00.000+00:0 0 - Completed 12 HR bupropion hydrochlorid e 90 MG / naltrexone hydrochloride 8 MG Extended Release Oral Tablet [Contrave] [id number]:00:00.000+00:0 0 - Completed 12 HR bupropion hydrochlorid e 90 MG / naltrexone hydrochloride 8 MG Extended Release Oral Tablet [Contrave] [id number]:00:00.000+00:0 0 - Completed 12 HR bupropion hydrochlorid e 90 MG / naltrexone hydrochloride 8 MG Extended Release Oral Tablet [Contrave] [id number]:00:00.000+00:0 0 - Completed Patient Care team information Name Category Status Period Participants - - Proposed period not known -
--- OUTSIDE RECORDS SUMMARY | 2024-12-19 10:53 | XMS_ITS | Clinical Summary ---
Author Organization [employer] ([place], [place], [place], [place]) Address [address] [place] [address] Care Team Providers Care Pharmacy Data Analyst Name Role Phone [facility], Provider Not In The System MD Primary Care Provider Unavailable Allergies Active Allergy Reactions Criticality Noted Date Comments Penicillin Other (See Comments) Low 05/07/2023 local topical allergy Medications escitalopram oxalate (LEXAPRO) 20 MG tablet Take 1 tablet (20 mg total) by mouth daily. 3 Active furosemide (LASIX) 20 MG tablet Take 1 tablet (20 mg total) by mouth daily. 3 Active omeprazole (PriLOSEC) 20 MG capsule Take 1 capsule (20 mg total) by mouth 2 (two) times daily. 3 Active Contrave 8-90 mg TbER Take 2 tablets by mouth 2 (two) times daily. 3 Active pediatric multivitamin chewable tablet Take 2 tablets by mouth daily. Active calcium carbonate-vitamin D3 (OSCAL-D) 500 mg(1,250mg) -200 unit per tablet Take 1 tablet by mouth 2 (two) times daily with breakfast and dinner. Active levothyroxine (SYNTHROID, LEVOTHROID) 125 MCG tablet Take 1 tablet (125 mcg total) by mouth daily. 3 Active Active Problems Problem Noted Date Diagnosed Date Lumbar spondylosis 05/13/2023 Anxiety and depression 05/07/2023 3 Osteoarthritis 05/07/2023 05/07/2023 BMI 39.0-39.9,adult 05/07/2023 05/07/2023 History of asthma 05/07/2023 05/07/2023 Hypertension 05/07/2023 05/07/2023 Hypothyroidism 05/07/2023 05/07/2023 Overview (05/07/2023): s/p thyroidectomy 90% for hyperactive, no XRT. Osteoporosis 05/07/2023 05/07/2023 Obstructive sleep apnea syndrome 05/07/2023 05/07/2023 Overview (05/07/2023): CPAP compliant. Social History Tobacco Use Types Packs/Day Years Used Date Smoking Tobacco: Never Smokeless Tobacco: Never Tobacco Cessation:Counseling Given: Not Answered Alcohol Use Standard Drinks/Week Comments Yes 0 (1 standard drink = 0.6 oz pur e alcohol) rare Food Insecurity Answer Date Recorded Food run out past 12 months Not on file 06/14 Food did not last past 12 months Not on file 06/30/2023 Employment Answer Date Recorded Help finding and keeping a job Not on file 0 06/30/2023 Family and Community Support Answer Marcos e Recorded Help with Day to Day Activities Not on file 06/30/2023 Feeling Lonely or Isolated Not on file 06/30 Educational Attainment Answer Date Duc rded Speak language other than Palestinian at home Not on file 06/30/2023 Want help with school or training Not on file 06/30/2023 Substance Use Answer Date Recorded Used prescription meds for non-medical reasons N ot on file 06/30/2023 Used illegal drugs past 12 months Not on file 06/30/2023 Comments No Sex and Gender Information Value Date Recorded Sex Assigned at Not on file Legal Sex Female 3:25 PM CDT Gender Identity Not on file Sexual Orientation Not on file Last Filed Vital Signs Vital Sign Reading Time Taken Comments Blood Pressure 126/61 05/16/2023 9:30 AM EST Pulse 94 05/16/2023 9:30 AM EST Temperature 37.7 C (99.9 F) 05/16/2023 9:30 AM EST Respiratory Rate 18 05/15/2023 10:01 PM EST Oxygen Saturation 94% 05/16/2023 9:30 AM EST Inhaled Oxygen Concentration - - Weight 98.9 kg (218 lb) 05/13/2023 10:00 AM EST Height 157.5 cm (5' 2.01 ) 05/13/2023 10:[address] Body Mass Index 39.86 05/13/2023 10:00 AM EST Plan of Treatment Health Maintenance Due Date Last Done Comments CT Colonography 1959 Colonoscopy 1959 Colorectal Cancer Screening 1959 DXA SCAN 1959 FOBT/FIT 1959 Fit-DNA (Cologuard) 1959 Sigmoidoscopy 1959 HIV Screening 1974 Hepatitis C Screening 1977 Pap Smear 1980 Breast Cancer Screening 1999 Lipid Panel 2004 Pneumococcal 50+ years (1 of 1 - PCV) 2009 DTAP/TDAP/TD VACCINES (2 - T d or Tdap) 09/21/2022 09/21/2012 COVID-19 VACCINE (5 - 2023-2 5 season) 2024 12/22/2021, 03/12/2021, 08/02/2020, Additional history exists Tobacco Cessation Counseling and Screening (12+) 05/13/2024 05/13/2023 Falls Risk Screening 06/14/2024 Influenza Vaccine (#1) 2025 Respiratory Syncytial Virus (RSV) Adult or (1 - 1-dose 75+ series) 2034 Shingles Vaccine (Zoster) Completed 06/28/2021, 04/2021 Medical Devices Implanted Type Area [employer] Head Cook Device Identifier Shelf Expiration Date Model / Serial / Lot Fibergraft Mtrx 12.5cc [id number] - [id number] Implanted:Qty: 1 on 05/13/2023 by Precious Chaudhry MD at [facility] IMPLANTS N/A: Spine Lumbar [employer] 12/30/2025 [id number] / / [id number] Bone Vivigen Formable Cell 5cc Bl-1600-002 - [id number] Implanted:Qty: 1 on 05/13/2023 by Precious Chaudhry MD at [facility] IMPLANTS N/A: Spine Lumbar LIFENET:LIFENET TRANSPLANT SRV 04/04/2024 BL-1600-002 / [id number] / Cement Spinal Confidence 2839-10000 - [id number] Implanted:Qty: 1 on 05/13/2023 by Precious Chaudhry MD at [facility] IMPLANTS N/A: Spine Lumbar J &J:DEPUY:DEPUY SPINE 02/11/2025 2839-10000 / / [id number] Scr Spne Jose Fix 6x50mm - [id number] Implanted:Qty: 4 on 05/13/2023 by Precious Chaudhry MD at [facility] IMPLANTS N/A: Spine Lumbar J &J:DEPUY:DEPUY SPINE / / Scr Spne Jose Fix 7x40mm - [id number] Implanted:Qty: 2 on 05/13/2023 by Precious Chaudhry MD at [facility] IMPLANTS N/A: Spine Lumbar J &J:DEPUY:DEPUY SPINE / / Set Scr Si Innr Xped Ti - Implanted:Qty: 6 on 05/13/2023 by Precious Chaudhry MD at [facility] IMPLANTS N/A: Spine Lumbar J &J:DEPUY:DEPUY SPINE / / Nolan Pre Load 65mm - [id number] Implanted:Qty: 2 on 05/13/2023 by Precious Chaudhry MD at [facility] IMPLANTS N/A: Spine Lumbar J &J:DEPUY:DEPUY SPINE / / Insurance BLUE CROSS/BLUE SHIELD Advance Directives For more information, please contact: [phone] * Full Code (Latest Code Status on File) Date Activated Date Inactivated Comments 05/13/2023 2:36 PM 05/16/2023 1:51 PM Care Teams Pharmacy Data Analyst Relationship Specialty Start Date End Date [facility], Provider Not In The System, [place] [address] PCP - General 05/07/23
--- OUTSIDE RECORDS SUMMARY | 2024-12-19 10:53 | XMS_ITS | Referral Summary ---
Author Organization [employer] ([place], [place], [place], [place]) Address [address] [place] [address] Care Team Providers Care Glove Former Name Role Phone [facility], Provider Not In The System MD Primary [...] Date Duc rded Speak language other than Hungarian at home Not on file 06/30/2023 Want [...] 05/13/2023 10:00 AM EST Plan of Treatment Not on file Medical Devices Implanted Type Area Arboriculture Teacher Device Identifier Shelf Expiration Date Model / Serial / Lot Fibergraft Mtrx 12.5c [id number] - [id number] Implanted:Qty: 1 on 05/13/2023 by Precious Chaudhry MD at [facility] IMPLANTS N/A: Spine Lumbar [employer] 12/30/2025 [id number] / / [id number] Bone Vivigen Formable Cell [facility]-1600-002 - [id number] Implanted:Qty: 1 on 05/13/2023 by Precious Chaudhry MD at [facility] IMPLANTS N/A: Spine Lumbar LIFENET:LIFENET TRANSPLANT SRV 04/04/2024 -1600-002 / [id number] / Cement Spinal Confidence 2839-10-000 - [id number] Implanted:Qty: 1 on 05/13/2023 by Precious Chaudhry MD at [facility] IMPLANTS N/A: Spine Lumbar J &J:DEPUY:DEPUY SPINE 02/11/2025 2839-10-000 / / [id number] Scr Spne Jose Fix 6x50mm - [id number] Implanted:Qty: 4 on 05/13/2023 by Precious Chaudhry MD at [facility] IMPLANTS N/A: Spine Lumbar J &J:DEPUY:DEPUY SPINE / / Scr Spne Jose Fix 7x40mm - Implanted:Qty: 2 on 05/13/2023 by Precious Chaudhry MD at [facility] IMPLANTS N/A: Spine Lumbar J &J:DEPUY:DEPUY SPINE / [id number] / Set Scr Si Innr Xped Ti - [id number] Implanted:Qty: 6 on 05/13/2023 by Precious Chaudhry MD at [facility] IMPLANTS N/A: Spine Lumbar J &J:DEPUY:DEPUY SPINE / / Nolan Pre Load 65mm - [id number] Implanted:Qty: 2 on 05/13/2023 by Precious Chaudhry MD at [facility] IMPLANTS N/A: Spine Lumbar J &J:DEPUY:DEPUY SPINE / / Insurance BLUE CROSS/BLUE SHIELD Advance Directives For more information, please contact: [phone] * Full Code (Latest Code Status on File) Date Activated Date Inactivated Comments 05/13/2023 2:36 PM 05/16/2023 1:51 PM Care Teams Glove Former Relationship Specialty Start Date End Date [facility], Provider Not In The System, [place] [address] PCP - General 05/07/23
== END 2024-12-19 23:59 | disposition home or self-care (01) ==
LOC: RAD 10:50
PROVIDERS: PCP Nurse Practitioner Family; Visit Provider Internal Medicine
DX: M17.12 Unilateral primary osteoarthritis, left knee (principal); R93.6 Abnormal findings on diagnostic imaging of limbs; W19.XXXA Unspecified fall, initial encounter
CPT/HCPCS: 73562

== ENCOUNTER 2025-03-07 10:41 | Outpatient (CLI) | payer MEDICARE, SELFPAY ==
[2025-03-07 13:18] LABS: 25-OH Vitamin D, Total 40.3 ng/mL (30-100); Free T4 (Free Thyroxine) 1.89 ng/dl (0.78-2.19)
[2025-03-07 13:32] LABS: Thyroid Stimulating Hormone 0.10 uIU/mL (0.465-4.68)
[2025-03-07 14:03] LABS: Vitamin B12 > 1000 pg/mL (239-931)
--- OUTSIDE RECORDS SUMMARY | 2025-03-09 10:43 | XMS_ITS | Clinical Summary ---
Author Organization [facility] Address [address] [place] [address] Care Team Providers Care Assistant Professor Of Archaeology Name Role Phone System, Provider Not In Primary Care Provider Un available Allergies Active Allergy Reactions Criticality Noted Date Comments Penicillins Rash Low 01/13/2016 Medications escitalopram (LEXAPRO) 20 MG tablet Take 1 tablet by mouth Daily. Active CELEBREX 200 MG capsule Take 1 capsule by mouth Daily. Per bottle can take twice a day 7 Active Pediatric Multiple Vit-C-FA (FLINSTONES GUMMIES OMEGA-3 DHA PO) Take by mouth. Activ e levothyroxine (SYNTHROID, LEVOTHROID) 125 MCG tablet TAKE 1 TABLET BY MOUTH ONCE DAILY 30 tablet 1 2 Active Additional Information Patient taking differently: 125 mcg Oral Daily, Informant: Medication Bottle, Reported on 11/05/2022 Calcium Carb-Cholecalci ferol (CALCIUM 600 + D PO) Take 1 tablet by mouth 2 (Two) Times a Day. Active naltrexone-bupr opion ER (Contrave) 8-90 MG tablet Take 2 tablets by mouth 2 (Two) Times a Day. Active furosemide (LASIX) 20 MG tablet Take 1 tablet by mouth Daily. Active omeprazole (priLOSEC) 20 MG capsule 3 Active Active Problems Problem Noted Date Diagnosed Date Acute blood loss anemia 11/21/2022 Status post total hip replacement, left 11/20/19 23 GERD (gastroesophageal reflux disease) 3 Chronic back pain Depression Dyspepsia Fatigue History of MRSA infection Overview (09/04/2016): 2015, SORE ON ABDOMEN Hypertension Hypothyroidism Overview (09/04/2016): s/p thyroidectomy 90% for hyperactive, no XRT. Joint pain Obstructive sleep apnea Overview (09/04/2016): CPAP compliant. Osteoarthritis Vitamin D deficiency Resolved Problems Problem Noted Date Diagnosed Date Resolved Date Dysphagia 08/18/2016 02/03/2017 Vomiting 08/13/2016 02/03/2017 Morbid obesity with BMI of 50.0-59.9, adult 08/07/2016 02/03/2017 Immunizations Immunization Administration Dates Next Due COVID-19 (MODERNA) 1st,2nd,3 rd Dose Monovalent 03/12/2021,08/02/2020,07/03/2020 COVID-19 (MODERNA) Monovalen t Original Booster 12/22/2021 Shingrix 06/28/2021,04/24/2021 Family History Medical History Relation Name Comments Osteoporosis Mother Shila Bashir Relation Name Status Comments Mother Shila Bashir Social History Tobacco Use Types Packs/Day Years Used Date Smoking Tobacco: Never Smokeless Tobacco: Never Tobacco Cessation:Counseling Given: Not Answered Alcohol Use Standard Drinks/Week Comments Yes 0 (1 standard drink = 0.6 oz pur e alcohol) Maybe a drink 4-5 times a year AUDIT-C Answer Date Recorded Q1: How often do you have a drink containing alc ohol? Monthly or less 11/19/2022 Q2: How many drinks containi ng alcohol do you have on a typical day when you are drinking? 1 or 2 11/19/2022 Q3: How often do you have si x or more drinks on one occasion? Never 11/19/2022 Abuse Screen Answer Date Recorded Unsafe at Home or Work/School Not on file Feels Threatened by Someone? Not on file 01/2024 Does Anyone Keep You from Co ntacting Others or Doint Things Outside the Home? Not on file 11/20/2023 Physical Sign of Abuse Present Not on file 0 11/20/2023 Housing Stability Answer Date Recorded Current Living Arrangements Not on file 06/0 01/2024 Potentially Unsafe Housing Conditions Not on renetta e 11/20/2023 Family and Community Support Answer Marcos e Recorded Help with Day-to-Day Activities Not on file 03/22/2023 Lonely or Isolated Not on file 03/22/2023 Employment Answer Date Recorded Do you want help finding or keeping work or a cristina b? Not on file 03/22/2023 Disabilities Answer Date Recorded Concentrating, Remembering, or Making Decisions Difficulty Not on file 11/20/2023 Doing Errands Independently Difficulty Not on fi le 11/20/2023 Education Answer Date Recorded Help with school or training? Not on file Preferred Language Not on file 11/20/2023 Comments No Sex and Gender Information Value Date Recorded Sex Assigned at Not on file Legal Sex Female 9:58 AM EDT Gender Identity Not on file Sexual Orientation Not on file Last Filed Vital Signs Vital Sign Reading Time Taken Comments Blood Pressure 124/76 11/22/2023 8:00 AM EDT Pulse 92 11/21/2022 7:46 AM EDT Temperature 36.1 C (96.9 F) 12/14/2022 8:26 AM EDT Respiratory Rate 16 11/21/2022 7:46 AM EDT Oxygen Saturation 96% 11/21/2022 7:46 AM EDT Inhaled Oxygen Concentration - - Weight 102 kg (225 lb) 11/22/2023 8:00 AM EDT Height 157.5 cm (5' 2.01 ) 11/22/2023 8:00 AM ED T Body Mass Index 41.14 11/22/2023 8:00 AM EDT Plan of Treatment Health Maintenance Due Date Last Done Comments DXA SCAN 1959 MAMMOGRAM 1999 COLOGUARD 2004 COLON CANCER SCREENING 5 YEA R SIGMOIDOSCOPY 2004 COLONOSCOPY 2004 [address] CANCER SCREENING 2004 CT COLONOGRAPHY 2004 FECAL OCCULT BLOOD TEST 2004 FIT Testing (1 year) 2004 Pneumococcal Vaccine 50+ (1 of 1 - PCV) 2009 ANNUAL PHYSICAL 09/11/2016 HEPATITIS C SCREENING 09/11/2016 TDAP/TD VACCINES (2 - Td or Tdap) 09/21/2022 013 INFLUENZA VACCINE 01/12/2025 06/16/2023, 04/08/2021 COVID-19 Vaccine (6 - 2024-2 6 season) 2025 06/16/2023, 12/22/2021, 03/12/2021, Additional history exists ZOSTER VACCINE Completed 06/28/2021, 04/24/2021 Medical Devices Implanted Type Area Geochemist Device Identifier Shelf Expiration Date Model / Serial / Lot Stplln Peristrip Dry Veritas Ech60 6fire - [id number] Implanted:Qty: 1 on 08/07/2016 by Chi Lan MD at [facility] Implant N/A: Stomach SYNOVIS [id number] 06/22/2019 [id number] / / [id number] Stplln Peristrip Dry Veritas Ech60 6fire - [id number] Implanted:Qty: 1 on 08/07/2016 by Chi Lan MD at [facility] Implant N/A: Stomach SYNOVIS [id number] 06/22/2019 [id number] / / [id number] Stplln Peristrip Dry Veritas Ech60 6fire - [id number] Implanted:Qty: 1 on 08/07/2016 by Chi Lan MD at [facility] Implant N/A: Stomach SYNOVIS [id number] 06/22/2019 [id number] / / [id number] Sealant Fibrin Tisseel Fz 10ml - [id number] - [id number] Implanted:Qty: 1 on 08/07/2016 by Chi Lan MD at [facility] Implant N/A: Stomach [facility] [id number] 12/11/2017 [id number] / [id number] / [id number] Stem Fem/Hip Polarstem W/Colr Std Sz2 - [id number] Implanted:Qty: 1 on 11/19/2022 by Lorenzo Baldwin MD at [facility] Implant Left: Hip PRITCHETT AND NEPHEW 06/17/2029 [id number] / / [id number] Hd Fem/Hip Bioloxdelta R3 05/27 Sm 32mm Pls0 - [id number] Implanted:Qty: 1 on 11/19/2022 by Lorenzo Baldwin MD at [facility] Implant Left: Hip PRITCHETT AND NEPHEW 07/02/2032 [id number] / / [id number] Totl Hip Babatunde Pritchett Nephew - [id number] Implanted:Qty: 1 on 11/19/2022 by Lorenzo Baldwin MD at [facility] Implant Left: Hip PRITCHETT AND NEPHEW CAPHIPTOTA [id number] / / Dev Contrl Tiss Stratafix Symm Pds Plus Gerald Ct-1 45cm - [id number] Implanted:Qty: 1 on 11/19/2022 by Lorenzo Baldwin MD at [facility] Implant Left: Hip ETHICON DIV OF Stephanie AND J [id number] / / [id number] Dev Contrl Tiss Stratafix Spiral Mncryl Ud 3/0 Pls 60cm - [id number] Implanted:Qty: 1 on 11/19/2022 by Lorenzo Baldwin MD at [facility] Implant Left: Hip ETHICON ENDO SURGERY DIV OF Stephanie AND J [id number] / / [id number] Shll Acet R3 3h Std 48mm - [id number] Implanted:Qty: 1 on 11/19/2022 by Lorenzo Baldwin MD at [facility] Implant Left: Hip PRITCHETT AND NEPHEW 04/09/2032 [id number] / / [id number] Scrw Sph Hd Reflection 6.5x25mm - [id number] Implanted:Qty: 1 on 11/19/2022 by Lorenzo Baldwin MD at [facility] Implant Left: Hip PRITCHETT AND NEPHEW 06/22/2032 [id number] / / [id number] Liner Acet R3 Xlpe 0d 20r15mu - [id number] Implanted:Qty: 1 on 11/19/2022 by Lorenzo Baldwin MD at [facility] Implant Left: Hip PRITCHETT AND NEPHEW 07/10/2032 [id number] / / [id number] Insurance [employer] EMPLOYEE Advance Directives * CPR (Attempt to Resuscitate) (Latest Code Status on File) Date Activated Date Inactivated Comments 11/19/2022 3:32 PM 11/21/2022 3:18 PM Question Answer Comments Code Status (Patient has no pulse and is not breathing): CPR (Attempt to Resuscitate) Medical Interventions (Patie nt has pulse or is breathing): Full Support Release to patient: Routine Release * Full Code Date Activated Date Inactivated Comments 08/13/2016 1:09 PM 08/15/2016 8:41 PM * Full Code Date Activated Date Inactivated Comments 08/07/2016 6:18 PM 08/09/2016 2:08 PM Care Teams Assistant Professor Of Archaeology Relationship Specialty Start Date End Date System, [place] [address] PCP - General Family Medicine 08/21/22
--- OUTSIDE RECORDS SUMMARY | 2025-03-09 10:43 | XMS_ITS | Clinical Summary ---
Author Organization [employer] ([place], [place], [place], [place]) Address [address] [place] [address] Care Team Providers Care Oyster Harvester Name Role Phone [facility], Provider Not In The System MD Primary [...] Date Duc rded Speak language other than Chinese at home Not on file 06/30/2023 Want [...] - T d or Tdap) 09/21/2022 09/21/2012 Tobacco Cessation Counseling and Screening (12+) 05/13/2024 05/13/2023 Falls Risk Screening 06/14/2024 COVID-19 VACCINE (5 - 2024-2 6 season) 2025 12/22/2021, 03/12/2021, 08/02/2020, Additional history exists Influenza Vaccine (#1) 2025 Respiratory Syncytial Virus (RSV) Adult or (1 - 1-dose 75+ series) 2034 Shingles Vaccine (Zoster) Completed 06/28/2021, 04/2021 Medical Devices Implanted Type Area Mission Systems Engineer Device Identifier Shelf Expiration Date Model / Serial / Lot Fibergraft Mtrx 12.5cc [id number] - [id number] Implanted:Qty: 1 on 05/13/2023 by Precious Chaudhry MD at [facility] IMPLANTS N/A: Spine Lumbar PROSIDYAN INC 12/30/2025 [id number] / / [id number] Bone Vivigen Formable Cell 5cc Bl-1600-002 - [id number] Implanted:Qty: 1 on 05/13/2023 by Precious Chaudhry MD at [facility] IMPLANTS N/A: Spine Lumbar LIFENET:LIFENET TRANSPLANT SRV 04/04/2024 BL-1600-002 / [id number] / Cement Spinal Confidence 2839-10000 - [id number] Implanted:Qty: 1 on 05/13/2023 by Precious Chaudhry MD at [facility] IMPLANTS N/A: Spine Lumbar J &J:DEPUY:DEPUY SPINE 02/11/2025 2839-10000 / / [id number] Scr Spne Jose Fix 6x50mm - [id number] Implanted:Qty: 4 on 05/13/2023 by Precious Chaudhry MD at [facility] IMPLANTS N/A: Spine Lumbar J &J:DEPUY:DEPUY SPINE / / Scr Spne Jose Fix 7x40mm - [id number] Implanted:Qty: 2 on 05/13/2023 by Precious Chaudhry MD at [facility] IMPLANTS N/A: Spine Lumbar J &J:DEPUY:DEPUY SPINE / / Set Scr Si Innr Xped Ti - Implanted:Qty: 6 on 05/13/2023 by Precious Chaudhry MD at [facility] IMPLANTS N/A: Spine Lumbar J &J:DEPUY:DEPUY SPINE / / Nolan Pre Load 65mm - [id number] Implanted:Qty: 2 on 05/13/2023 by Precious Chaudhry MD at [facility] IMPLANTS N/A: Spine Lumbar J &J:DEPUY:DEPUY SPINE / / Insurance BLUE CROSS/BLUE SHIELD Advance Directives For more information, please contact: [phone] * Full Code (Latest Code Status on File) Date Activated Date Inactivated Comments 05/13/2023 2:36 PM 05/16/2023 1:51 PM Care Teams Oyster Harvester Relationship Specialty Start Date End Date [facility], Provider Not In The System, [place] [address] PCP - General 05/07/23
--- OUTSIDE RECORDS SUMMARY | 2025-03-09 10:43 | XMS_ITS | Referral Summary ---
Author Organization [employer] ([place], [place], [place], [place]) Address [address] [place] [address] Care Team Providers Care Radiation Officer Name Role Phone [facility], Provider Not In The System MD [...] Date Duc rded Speak language other than Kyrgyz at home Not on file 06/30/2023 Want [...] on file Medical Devices Implanted Type Area Bird Tender Device Identifier Shelf Expiration Date Model / Serial / Lot Fibergraft Mtrx 12.5c [id number] - [id number] Implanted:Qty: 1 on 05/13/2023 by Precious Chaudhry MD at [facility] IMPLANTS N/A: Spine Lumbar PROSIDYAN INC 12/30/2025 [id number] / / [id number] Bone Vivigen Formable Cell [facility]-1600-002 - [id number] Implanted:Qty: 1 on 05/13/2023 by Precious Chaudhry MD at [facility] IMPLANTS N/A: Spine Lumbar LIFENET:LIFENET TRANSPLANT SRV 04/04/2024 -1600-002 / [id number] / Cement Spinal Confidence 2839-10-000 - [id number] Implanted:Qty: 1 on 05/13/2023 by Precious Chaudhry MD at [facility] IMPLANTS N/A: Spine Lumbar J &J:DEPUY:DEPUY SPINE 02/11/2025 2839-10-000 / / [id number] Scr Spne Jose Fix 6x50mm - [id number] Implanted:Qty: 4 on 05/13/2023 by Precious Chaudhry MD at [facility] IMPLANTS N/A: Spine Lumbar J &J:DEPUY:DEPUY SPINE / / Scr Spne Jose Fix 7x40mm - Implanted:Qty: 2 on 05/13/2023 by Precious Chaudhry MD at [facility] IMPLANTS N/A: Spine Lumbar J &J:DEPUY:DEPUY SPINE / 1867-27-740 / Set Scr Si Innr Xped Ti - [id number] Implanted:Qty: 6 on 05/13/2023 by Precious Chaudhry MD at [facility] IMPLANTS N/A: Spine Lumbar J &J:DEPUY:DEPUY SPINE / / Nolan Pre Load 65mm - [id number] Implanted:Qty: 2 on 05/13/2023 by Precious Chaudhry MD at [facility] IMPLANTS N/A: Spine Lumbar J &J:DEPUY:DEPUY SPINE / / Insurance BLUE CROSS/BLUE SHIELD Advance Directives For more information, please contact: [phone] * Full Code (Latest Code Status on File) Date Activated Date Inactivated Comments 05/13/2023 2:36 PM 05/16/2023 1:51 PM Care Teams Radiation Officer Relationship Specialty Start Date End Date [facility], Provider Not In The System, [place] [address] PCP - General 05/07/23
== END 2025-03-07 23:59 ==
LOC: LAB.DROPOF 03-09 10:41
PROVIDERS: PCP Nurse Practitioner Family; Visit Provider Nurse Practitioner Family
DX: E03.9 Hypothyroidism, unspecified (principal); E53.8 Deficiency of other specified B group vitamins; M81.0 Age-related osteoporosis without current pathological fracture
CPT/HCPCS: 82306; 82607; 84439; 84443

== ENCOUNTER 2025-03-19 12:53 | Outpatient (CLI) | payer MEDICARE, SELFPAY ==
--- OUTSIDE RECORDS SUMMARY | 2025-03-19 12:57 | XMS_ITS | Referral Summary ---
Author Organization [employer] ([place], [place], [place], [place]) Address [address] [place] [address] Care Team Providers Care Technical Cable Jointer Name Role Phone [facility], Provider Not In The System MD Primary [...] Date Duc rded Speak language other than Swazi at home Not on file 06/30/2023 Want [...] on file Medical Devices Implanted Type Area Biotech Production Specialist Device Identifier Shelf Expiration Date Model / Serial / Lot Fibergraft Mtrx 12.5c [id number] - [id number] Implanted:Qty: 1 on 05/13/2023 by Precious Chaudhry MD at [facility] IMPLANTS N/A: Spine Lumbar PROSIDYAN INC 12/30/2025 [id number] / / [id number] Bone Vivigen Formable Cell [facility]-1600-002 - [id number] Implanted:Qty: 1 on 05/13/2023 by Precious Chaudhry MD at [facility] IMPLANTS N/A: Spine Lumbar LIFENET:LIFENET TRANSPLANT SRV 04/04/2024 -1600-002 / [id number] / Cement Spinal Confidence 2839-10-000 - [id number] Implanted:Qty: 1 on 05/13/2023 by Precious Chaudhry MD at [facility] IMPLANTS N/A: Spine Lumbar J &J:DEPUY:DEPUY SPINE 02/11/2025 2839-10-000 / / [id number] Scr Spne Jose Fix 6x50mm - [id number] Implanted:Qty: 4 on 05/13/2023 by Precious Chaudhry MD at [facility] IMPLANTS N/A: Spine Lumbar J &J:DEPUY:DEPUY SPINE / / Scr Spne Jose Fix 7x40mm - Implanted:Qty: 2 on 05/13/2023 by Precious Chaudhry MD at [facility] IMPLANTS N/A: Spine Lumbar J &J:DEPUY:DEPUY SPINE / 1867-27-740 / Set Scr Si Innr Xped Ti - [id number] Implanted:Qty: 6 on 05/13/2023 by Precious Chaudhry MD at [facility] IMPLANTS N/A: Spine Lumbar J &J:DEPUY:DEPUY SPINE / / Nolan Pre Load 65mm - [id number] Implanted:Qty: 2 on 05/13/2023 by Precious Chaudhry MD at [facility] IMPLANTS N/A: Spine Lumbar J &J:DEPUY:DEPUY SPINE / / Insurance BLUE CROSS/BLUE SHIELD Advance Directives For more information, please contact: [phone] * Full Code (Latest Code Status on File) Date Activated Date Inactivated Comments 05/13/2023 2:36 PM 05/16/2023 1:51 PM Care Teams Technical Cable Jointer Relationship Specialty Start Date End Date [facility], Provider Not In The System, [place] [address] PCP - General 05/07/23
--- OUTSIDE RECORDS SUMMARY | 2025-03-19 12:57 | XMS_ITS | Clinical Summary ---
Author Organization [employer] ([place], [place], [place], [place]) Address [address] [place] [address] Care Team Providers Care Customer Liaison Name Role Phone [facility], Provider Not In The System MD [...] Date Duc rded Speak language other than Afghan at home Not on file 06/30/2023 Want [...] 06/28/2021, 04/2021 Medical Devices Implanted Type Area Superintendent Stations Device Identifier Shelf Expiration Date Model / Serial / Lot Fibergraft Mtrx 12.5cc [id number] - [id number] Implanted:Qty: 1 on 05/13/2023 by Precious Chaudhry MD at [facility] IMPLANTS N/A: Spine Lumbar PR[employer]IDYAN INC 12/30/2025 [id number] / / [id number] Bone Vivigen Formable Cell 5cc Bl-1600-002 - [id number] Implanted:Qty: 1 on 05/13/2023 by Precious Chaudhry MD at [facility] IMPLANTS N/A: Spine Lumbar LIFENET:LIFENET TRANSPLANT SRV 04/04/2024 BL-1600-002 / [id number] / Cement Spinal Confidence 2839-10000 - [id number] Implanted:Qty: 1 on 05/13/2023 by Precious Chaudhry MD at [facility] IMPLANTS N/A: Spine Lumbar J &J:DEPUY:DEPUY SPINE 02/11/2025 2839-10000 / / [id number] Scr Spne Jose Fix 6x50mm - [id number] Implanted:Qty: 4 on 05/13/2023 by Precious Chaudhry MD at [facility] IMPLANTS N/A: Spine Lumbar J &J:DEPUY:DEPUY SPINE / / Scr Spne Jose Fix 7x40mm - [id number] Implanted:Qty: 2 on 05/13/2023 by Precious Chaudhry MD at [facility] IMPLANTS N/A: Spine Lumbar J &J:DEPUY:DEPUY SPINE / / Set Scr Si Innr Xped Ti - Implanted:Qty: 6 on 05/13/2023 by Precious Chaudhry MD at [facility] IMPLANTS N/A: Spine Lumbar J &J:DEPUY:DEPUY SPINE / / Nolan Pre Load 65mm - [id number] Implanted:Qty: 2 on 05/13/2023 by Precious Chaudhry MD at [facility] IMPLANTS N/A: Spine Lumbar J &J:DEPUY:DEPUY SPINE / / Insurance BLUE CROSS/BLUE SHIELD Advance Directives For more information, please contact: [phone] * Full Code (Latest Code Status on File) Date Activated Date Inactivated Comments 05/13/2023 2:36 PM 05/16/2023 1:51 PM Care Teams Customer Liaison Relationship Specialty Start Date End Date [facility], Provider Not In The System, [place] [address] PCP - General 05/07/23
--- OUTSIDE RECORDS SUMMARY | 2025-03-19 12:57 | XMS_ITS | Data Portability ---
Author Organization [facility] Address [address] [place] [address] Care Team Providers Care Dish Cloth Inspector Name Role Phone DELIO COTTER Referring Provider [phone] Assessment Encounter Date Assessment Date Assessment LastModified [...] TURNER an order will be sent to [facility]. Not available 05/31/2023 13:48:44 Plan of Treatment Reminders Order Date Submit Date Provider Last Modified By Organization Details Last Modified Time Details Appointments None recorded. Lab None recorded. Referral physical therapist referral - Recent surgery. L4-S1 Laminectomy and Fusion with Screw Augmentatio n and L5 Kyphoplasty 05/13 023 BELKIS In [facility] (Formerly [facility]), [address] , [place], [address], 09:58:21 Procedures None recorded. Surgeries None recorded. [...] contr ast No observ ation record ed. [facility] [address], [place], [address], 05/11/2023 14:49:58 06/21/19 24 06/21/2023 XR, lumbo sacra l spine , 2 or 3 view [facility] [place] [facility] [address] [place] [address] [place] [address] Pat[place]arg[place] t Name: DAGMAR solares : [phone] Michael[address] solares Orderi ng Provid er: PRECIOUS JUAREZ Y EXAM DATE: 2023 EXAM: XR LUMBAR [...] Hernandez MD on 06/21/19 24 1:34 PM [facility]iology [facility] [address] [place] [address], [phone], 06/28/2023 14:59:14 09/20/19 24 09/20/2023 XR, lumbo sacra l spine , 2 or 3 view [facility] [address] [place] [address] [place] [address] Patimargie t Name: DAGMAR solares : 960 Michaela solares Orderi ng Provid er: PRECIOUS TIMONE Y EXAM DATE: 2023 EXAM: XR LUMBAR AP/LAT HISTOR Y: Follow -up of prior surger y COMPAR YONNY: 06/21/19 24 FINDIN GS: 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 There our pedicl e screws and boat builder and repairer ior fusion hardwa re in place. There is no eviden ce of loosen ing of the hardwa re. There is mild anteri or listhe sis of L4 on L5 and L5 on S1. There is boat builder and repairer ior listhe sis of L1 on L2, L2 on L3 and L3 on L4. There is mild anteri or margin al spurri ng. No fractu re is identi fied. IMPRES VANESSA: 1. There is prior boat builder and repairer ior fusion from L4 throug h S1. Interp reted By: Fahad kaur MD Electr onical ly Signed By: Fahad kaur MD on 09/20/19 12:43 PM [facility]iology [address], [address], 09/22/2023 11:33:04 Result Notes Documentation Provider Name and Address Organization Details Recorded Time Xr, Lumbosacral Spine, 2 Or 3 View : [address] [address] Patient Name: DAGMAR LEONG Patient : 1960 Patient Ordering Provider: PRECIOUS CHAUDHRY EXAM DATE: 06/21/2023 EXAM: XR LUMBAR AP/LAT CLINICAL INFORMATION: Postoperative. IMAGES PROVIDED: AP, lateral, and coned-down views of the lumbar spine. COMPARISON: None. FINDINGS AND IMPRESSION: Spinal fusion is noted at L4-S1 level. Surgical hardware is satisfactorily placed. No evidence of loosening or infection is seen. Degenerative changes are seen at other levels. Incidental note is made of bilateral total hip replacement. Interpreted By: Garrison Hernandez MD IOUS CHAUDHRY MD [address] [place] [address], [phone], [facility] 06/28/2023 14:59:14 Xr, Lumbosacral Spine, 2 Or 3 View : [facility] [address] [place] [address] Patient Name: DAGMAR LEONG Patient : 1960 Patient Ordering Provider: PRECIOUS CHAUDHRY EXAM DATE: 09/20/2023 EXAM: XR LUMBAR AP/LAT HISTORY: Follow-up of prior surgery COMPARISON: 06/21/2023 FINDINGS: Again seen is prior posterior fusion and laminectomies from L4 through S1. There our pedicle screws and posterior fusion hardware in place. There is no evidence of loosening of the hardware. There is mild anterior listhesis of L4 on L5 and L5 on S1. There is posterior listhesis of L1 on L2, L2 on L3 and L3 on L4. There is mild anterior marginal spurring. No fracture is identified. IMPRESSION: 1. There is prior posterior fusion from L4 through S1. Interpreted By: Ras Barrow MD IOUS CHAUDHRY MD [address] [place] [address], [phone], [facility] 09/22/2023 11:33:04 Medical Equipment None Reported. Allergies Allergen ID Allergen Name Allergen Category Reaction Reaction Severity Criticality Documentation Date Start Date Code Code System Note Provider Name and Address Organization Details Recorded Time 792521 Product containin g penicilli n (product) medicatio n Not available Not available Not available 04/14/2023 54790 8001 SNOMED Maritza Krishnancharlinedestin [facility] 11:12:16 Medications Name Sig Start Date Stop [...] Body mass index (BMI) Body weight Systolic And Diastolic Provider Name and Address Organization Details Last Updated DateTime 06/21/2023 154.94 cm 41 kg/m2 35189.54 g 138/84 mm[Hg] [facility] 06/21/2023 10:07:20 Date Recorded Body height Body mass index (BMI) Body weight Systolic And Diastolic Provider Name and Address Organization Details Last Updated DateTime 09/20/2023 154.94 cm 41 kg/m2 49881.54 g 134/82 mm[Hg] [facility] 09/20/2023 10:22:32 Date Recorded Body height Body mass index (BMI) Body weight Systolic And Diastolic Provider Name and Address Organization Details Last Updated DateTime 05/03/2023 154.94 cm 41 kg/m2 08839.54 g 140/80 mm[Hg] Maritza Hanna [facility] 05/03/2023 11:20:10 Social History None recorded. Functional Status None [...] Diagnosis SNOMED-CT Code Diagnosis ICD10 Code Diagnosis IMO Codes Diagnosis Note [id number] QM_IMPORTS [place] [address] 09/14/2016 19:30:45 09/14/2016 19:30:45 [id number] PRECIOUS CHAUDHRY MD [facility]G [facility] [address] [place] [address] 04/14/2023 10:51:21 04/16/2023 04:19:26 Lumbar radiculopathy [id number] M54.16 I would like to go ahead [...] She is happy with the management plan. [id number] PRECIOUS CHAUDHRY MD NEUROSURG [facility] [address] [place] [address] 05/03/2023 10:55:52 05/04/2023 05:07:20 Lumbar radiculopathy [id number] M54.16 I discussed her radiograph ic findings. [...] She is happy with the management plan. [id number] PRECIOUS CHAUDHRY MD SURGERY SCHEDULE [address] [place] [address] 05/18/2023 08:36:56 05/26/2023 12:56:40 [id number] PRECIOUS CHAUDHRY MD NEUROSURG [facility]ICA [facility] [address] [place] [address] 05/31/2023 13:03:03 06/04/2023 04:52:52 Postoperative care [id number] Z48.89 [id number] PRECIOUS CHAUDHRY MD NEUROSURG JESSICA [facility] [address] [place] [phone] 06/21/2023 09:48:31 06/22/2023 04:46:17 Postoperative care [id number] Z48.89 Patient has done fantastic. I am very pleased with her results. She inquired about aqua therapy and I think this would be excellent for her. I would like to continue to follow her for 3 months and see her back with x-rays. She knows to contact us sooner if any new issues should arise. [id number] PRECIOUS CHAUDHRY MD NEUROSURG JESSICA [facility] [address] [place] [address] 09/20/2023 09:33:02 09/21/2023 04:44:08 Lumbar spondylosis [id number] M47.896 I discussed the radiograph ic findings. [...] Recorded Advance Directives Directive None Recorded Payers Insurance Date Sequence Insurance Name Policy Number Policy Salazar Covered Member ID Salazar Member ID Guarantor Name 09/17/2023 1 [place] [id number] Dagmar Leong [id number] Dagmar Leong Notes Date Note Type Note Provider Name and Address Organization Details Recorded Time 05/03/2023 text/html ROS as noted in the HPI Patient is a 62-year-old woman here today [...] acute L5 compression fracture PRECIOUS CHAUDHRY MD [facility] [place], [address], [facility] 05/03/2023 13:02:14 06/21/2023 text/html ROS as noted in the HPI Patient is a very pleasant 62-year-old woman here today for postoperative [...] intact hardware good alignment PRECIOUS CHAUDHRY MD [facility] [place], [address], [facility] 06/21/2023 12:50:04 09/20/2023 text/html ROS as noted in the [facility] Patient is a 63-year-old woman here today [...] demonstrate intact hardware alignment PRECIOUS CHAUDHRY MD [address] [place] [address], [phone], [facility] 09/20/2023 12:52:21 OBGyn Episode No OBEpisode recorded.
--- OUTSIDE RECORDS SUMMARY | 2025-03-19 12:57 | XMS_ITS | Clinical Summary ---
Author Organization [facility] Address [address] [place] [address] Care Team Providers Care Emergency Services Director Name Role Phone System, Provider Not In [...] 06/28/2021, 04/24/2021 Medical Devices Implanted Type Area Hand Packer/Packager Device Identifier Shelf Expiration Date Model / Serial / Lot Stplln Peristrip Dry Veritas Ech60 6fire - [id number] Implanted:Qty: 1 on 08/07/2016 by Chi Lan MD at [facility] Implant N/A: Stomach SYNOVIS [id number] 06/22/2019 [id number] / / [id number] Stplln Peristrip Dry Veritas Ech60 6fire - [id number] Implanted:Qty: 1 on 08/07/2016 by Chi Lan MD at [facility] Implant N/A: Stomach SYNOVIS [id number] 06/22/2019 [id number] / / [id number] 0226 Stplln Peristrip Dry Veritas Ech60 6fire - [id number] Implanted:Qty: 1 on 08/07/2016 by Chi Lan MD at [facility] Implant N/A: Stomach SYNOVIS [id number] 06/22/2019 [id number] / / [id number] 0226 Sealant Fibrin Tisseel Fz 10ml - [id number] - [id number] Implanted:Qty: 1 on 08/07/2016 by Chi Lan MD at [facility] Implant N/A: [facility] [id number] 12/11/2017 [id number] / [id number] / [id number] Stem Fem/Hip Polarstem W/Colr Std Sz2 - [id number] Implanted:Qty: 1 on 11/19/2022 by Lorenzo Baldwin MD at [facility] Implant Left: Hip PRITCHETT AND NEPHEW 06/17/2029 [id number] / / [id number] Hd Fem/Hip Bioloxdelta R3 05/27 Sm 32mm Pls0 - [id number] Implanted:Qty: 1 on 11/19/2022 by Lorenzo Baldwin MD at [facility] Implant Left: Hip PRITCHETT AND NEPHEW 07/02/2032 [id number] / / [id number] Totl Hip Babatunde Pritchett Nephew - [id number] Implanted:Qty: 1 on 11/19/2022 by Lorenzo Baldwin MD at [facility] Implant Left: Hip PRITCHETT AND NEPHEW CAPHIPTOTA LSN2 / / Dev Contrl Tiss Stratafix Symm Pds Plus Gerald Ct-1 45cm - [id number] Implanted:Qty: 1 on 11/19/2022 by Lorenzo Baldwin MD at [facility] Implant Left: Hip ETHICON DIV OF Stephanie AND J [id number] / / [id number] Dev Contrl Tiss Stratafix Spiral Mncryl Ud 3/0 Pls 60cm - [id number] Implanted:Qty: 1 on 11/19/2022 by Lorenzo Baldwin MD at [facility] Implant Left: Hip ETHICON ENDO SURGERY DIV OF Stephanie AND J [id number] / / [id number] Shll Acet R3 3h Std 48mm - [id number] Implanted:Qty: 1 on 11/19/2022 by Lorenzo Baldwin MD at [facility] Implant Left: Hip PRITCHETT AND NEPHEW 04/09/2032 [id number] / / [id number] Scrw Sph Hd Reflection 6.5x25mm - [id number] Implanted:Qty: 1 on 11/19/2022 by Lorenzo Baldwin MD at [facility] Implant Left: Hip PRITCHETT AND NEPHEW 06/22/2032 [id number] / / [id number] Liner Acet R3 Xlpe 0d 65k82ge - [id number] Implanted:Qty: 1 on 11/19/2022 by Lorenzo Baldwin MD at [facility] Implant Left: Hip PRITCHETT AND NEPHEW 07/10/2032 [id number] / / [id number] Insurance [employer] Advance Directives * CPR (Attempt [...] 6:18 PM 08/09/2016 2:08 PM Care Teams Emergency Services Director Relationship Specialty Start Date End Date System, [place] [address] PCP - General Family Medicine 08/21/22
--- NOTE | 2025-03-19 13:00 | MM_ITS ---
PROCEDURE INFORMATION: Exam: MG Bilateral Screening 3D Mammography Exam date and time: 03/19/2025 1:06 PM Age: 64 years old Clinical indication: Screening examination TECHNIQUE: Imaging protocol: Bilateral Screening tomosynthesis and 2D mammography including computer-aided detection (CAD) when performed. COMPARISON: 1. MG MM DIG SCREENING MAMM BI W/CAD 12/02/2023 10:12 AM 2. MG MM DIG SCREENING MAMM BI W/CAD 08/05/2022 8:06 AM FINDINGS: MAMMOGRAPHY: Breast composition: There are scattered areas of fibroglandular density. Mass: None. Architectural distortion: None. Calcifications: No suspicious calcifications. Asymmetric density: None. Skin thickening: None. Axillary adenopathy: None. IMPRESSION: No mammographic evidence of malignancy. Annual screening is recommended unless otherwise clinically indicated. ASSESSMENT: BI-RADS Category 1: Negative.
== END 2025-03-19 23:59 | disposition home or self-care (01) ==
LOC: RAD 12:54
PROVIDERS: PCP Nurse Practitioner Family; Visit Provider Nurse Practitioner Family
DX: Z12.31 Encounter for screening mammogram for malignant neoplasm of breast (principal); R92.323 Mammographic fibroglandular density, bilateral breasts
CPT/HCPCS: 77063; 77067

== ENCOUNTER 2025-04-09 08:24 | Outpatient (CLI) | payer MEDICARE, SELFPAY ==
[2025-04-09 17:13] LABS: Anion Gap 12.6 mEq/L (5-15); Blood Urea Nitrogen 21 mg/dl (7-17); Calcium 8.4 mg/dl (8.4-10.2); Carbon Dioxide 25 mmol/L (22.0-30.0); Chloride 100 mmol/L (98-107); Creatinine,Serum 0.70 mg/dl (0.52-1.04); Estimated Glomerular Filt Rate 84 ml/min (>60); GFR (African American) 102 ML/MIN (>60); Glucose 64 mg/dl (74-100); Potassium 4.6 mmoL/L (3.5-5.1); Sodium 133 mmol/L (136-145)
[2025-04-09 17:15] LABS: Free T4 (Free Thyroxine) 1.44 ng/dl (0.78-2.19)
[2025-04-09 17:41] LABS: Thyroid Stimulating Hormone 1.09 uIU/mL (0.465-4.68)
--- OUTSIDE RECORDS SUMMARY | 2025-04-10 09:51 | XMS_ITS | Referral Summary ---
Author Organization [employer] ([place], [place], [place], [place]) Address [address] [place] [address] Care Team Providers Care Deputy Chief Magistrate Name Role Phone [facility], Provider Not In The System MD Primary [...] Date Duc rded Speak language other than Ukrainian at home Not on file 06/30/2023 Want [...] on file Medical Devices Implanted Type Area Sweatband Cutting Machine Operator Device Identifier Shelf Expiration Date Model / Serial / Lot Fibergraft Mtrx 12.5c [id number] - [id number] Implanted:Qty: 1 on 05/13/2023 by Precious Chaudhry MD at [facility] IMPLANTS N/A: Spine Lumbar [employer] INC 12/30/2025 [id number] / / [id number] Bone Vivigen Formable Cell [facility]-1600-002 - [id number] Implanted:Qty: 1 on 05/13/2023 by Precious Chaudhry MD at [facility] IMPLANTS N/A: Spine Lumbar LIFENET:LIFENET TRANSPLANT SRV 04/04/2024 -1600-002 / [id number] / Cement Spinal Confidence 2839-10-000 - [id number] Implanted:Qty: 1 on 05/13/2023 by Precious Chaudhry MD at [facility] IMPLANTS N/A: Spine Lumbar J &J:DEPUY:DEPUY SPINE 02/11/2025 2839-10-000 / / [id number] Scr Spne Jose Fix 6x50mm - [id number] Implanted:Qty: 4 on 05/13/2023 by Precious Chaudhry MD at [facility] IMPLANTS N/A: Spine Lumbar J &J:DEPUY:DEPUY SPINE / / Scr Spne Jose Fix 7x40mm - Implanted:Qty: 2 on 05/13/2023 by Precious Chaudhry MD at [facility] IMPLANTS N/A: Spine Lumbar J &J:DEPUY:DEPUY SPINE / [id number] / Set Scr Si Innr Xped Ti - [id number] Implanted:Qty: 6 on 05/13/2023 by Precious Chaudhry MD at [facility] IMPLANTS N/A: Spine Lumbar J &J:DEPUY:DEPUY SPINE / / Nolan Pre Load 65mm - [id number] Implanted:Qty: 2 on 05/13/2023 by Precious Chaudhry MD at [facility] IMPLANTS N/A: Spine Lumbar J &J:DEPUY:DEPUY SPINE / / Insurance BLUE CROSS/BLUE SHIELD Advance Directives For more information, please contact: [phone] * Full Code (Latest Code Status on File) Date Activated Date Inactivated Comments 05/13/2023 2:36 PM 05/16/2023 1:51 PM Care Teams Deputy Chief Magistrate Relationship Specialty Start Date End Date [facility], Provider Not In The System, [place] [address] PCP - General 05/07/23
--- OUTSIDE RECORDS SUMMARY | 2025-04-10 09:51 | XMS_ITS | Clinical Summary ---
Author Organization [employer] ([place], [place], [place], [place]) Address [address] [place] [address] Care Team Providers Care Asphalt Tar And Gravel Roofer Name Role Phone [facility], Provider Not In The System [...] Date Duc rded Speak language other than Tunisian at home Not on file 06/30/2023 Want [...] 06/28/2021, 04/2021 Medical Devices Implanted Type Area Enterprise Project Manager Device Identifier Shelf Expiration Date Model / Serial / Lot Fibergraft Mtrx 12.5cc [id number] - [id number] Implanted:Qty: 1 on 05/13/2023 by Precious Chaudhry MD at [facility] IMPLANTS N/A: Spine Lumbar PR[employer]IDYAN INC 12/30/2025 [id number] / / [id number] Bone Vivigen Formable Cell 5cc Bl-1600-002 - [id number] Implanted:Qty: 1 on 05/13/2023 by Precious Chaudhry MD at [facility] IMPLANTS N/A: Spine Lumbar LIFENET:LIFENET TRANSPLANT SRV 04/04/2024 BL-1600-002 / [id number] / Cement Spinal Confidence 2839-10000 - [id number] Implanted:Qty: 1 on 05/13/2023 by Precious Chaudhry MD at [facility] IMPLANTS N/A: Spine Lumbar J &J:DEPUY:DEPUY SPINE 02/11/2025 2839-10000 / / [id number] Scr Spne Jose Fix 6x50mm - [id number] Implanted:Qty: 4 on 05/13/2023 by Precious Chaudhry MD at [facility] IMPLANTS N/A: Spine Lumbar J &J:DEPUY:DEPUY SPINE / / Scr Spne Jose Fix 7x40mm - [id number] Implanted:Qty: 2 on 05/13/2023 by Precious Chaudhry MD at [facility] IMPLANTS N/A: Spine Lumbar J &J:DEPUY:DEPUY SPINE / / Set Scr Si Innr Xped Ti - Implanted:Qty: 6 on 05/13/2023 by Precious Chaudhry MD at [facility] IMPLANTS N/A: Spine Lumbar J &J:DEPUY:DEPUY SPINE / / Nolan Pre Load 65mm - [id number] Implanted:Qty: 2 on 05/13/2023 by Precious Chaudhry MD at [facility] IMPLANTS N/A: Spine Lumbar J &J:DEPUY:DEPUY SPINE / / Insurance BLUE CROSS/BLUE SHIELD Advance Directives For more information, please contact: [phone] * Full Code (Latest Code Status on File) Date Activated Date Inactivated Comments 05/13/2023 2:36 PM 05/16/2023 1:51 PM Care Teams Asphalt Tar And Gravel Roofer Relationship Specialty Start Date End Date [facility], Provider Not In The System, [place] [address] PCP - General 05/07/23
--- OUTSIDE RECORDS SUMMARY | 2025-04-10 09:51 | XMS_ITS | Data Portability ---
Author Organization [facility] Address [address] [place] [address] Care Team Providers Care Industrial Machinery Mechanic Name Role Phone DELIO CTOTER Referring Provider [phone] Assessment Encounter Date Assessment Date Assessment LastModified [...] TURNER an order will be sent to [facility]. Not available 05/31/2023 13:48:44 Plan of Treatment Reminders Order Date Submit Date Provider Last Modified By Organization Details Last Modified Time Details Appointments None recorded. Lab None recorded. Referral physical therapist referral - Recent surgery. L4-S1 Laminectomy and Fusion with Screw Augmentatio n and L5 Kyphoplasty 05/13 023 BELKIS In [facility] (Formerly [facility]), [address] , [place], [address], 09:58:21 Procedures None recorded. Surgeries None recorded. [...] ast No observ ation record ed. [facility] [address], [place], [address], 05/11/2023 14:49:58 06/21/19 24 06/21/2023 XR, lumbo sacra l spine , 2 or 3 view [facility] [address] [place] [address] [place] [address] Patimargie t Name: DAGMAR solares : [phone] [...] Hernandez MD on 06/21/19 24 1:34 PM [facility] [address] [place] [address], [phone], 06/28/2023 14:59:14 09/20/19 24 09/20/2023 XR, lumbo sacra l spine , 2 or 3 view [facility] [address] [place] [address] [place] [address] Patimargie t Name: DAGMAR solares : 960 Michaela solares Orderi ng Provid er: PRECIOUS TIMONE Y EXAM DATE: 2023 EXAM: XR LUMBAR AP/LAT HISTOR Y: Follow -up of prior surger y COMPAR YONNY: 06/21/19 24 FINDIN GS: Again seen is prior category development manager 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 There our pedicl e screws and category development manager ior fusion hardwa re in place. There is no eviden ce of loosen ing of the hardwa re. There is mild anteri or listhe sis of L4 on L5 and L5 on S1. There is category development manager ior listhe sis of L1 on L2, L2 on L3 and L3 on L4. There is mild anteri or margin al spurri ng. No fractu re is identi fied. IMPRES VANESSA: 1. There is prior category development manager ior fusion from L4 throug h S1. Interp reted By: Fahad kaur MD Electr onical ly Signed By: Fahad kaur MD on 09/20/19 12:43 PM [facility] [address], [phone], 09/22/2023 11:33:04 Result Notes Documentation Provider Name and Address Organization Details Recorded Time Xr, Lumbosacral Spine, 2 Or 3 View : [address] [address] Patient Name: DAGMAR LEONG Patient : 1960 [...] By: Garrison Hernandez MD IOUS CHAUDHRY MD [address] [place] [address], [phone], [facility] 06/28/2023 14:59:14 Xr, Lumbosacral Spine, 2 Or 3 View : [facility] [address] [place] [address] Patient Name: DAGMAR LEONG Patient : 1960 [...] By: Ras Barrow MD IOUS CHAUDHRY MD [address] [place] [address], [phone], [facility] 09/22/2023 11:33:04 Medical Equipment None Reported. Allergies Allergen ID Allergen Name Allergen Category Reaction Reaction Severity Criticality Documentation Date Start Date Code Code System Note Provider Name and Address Organization Details Recorded Time 181483 Product containin g penicilli n (product) medicatio n Not available Not available Not available 04/14/2023 95198 8001 SNOMED Maritza Krishnancharlinedestin [facility] 11:12:16 Medications Name Sig Start [...] Updated DateTime 06/21/2023 154.94 cm 41 kg/m2 96002.54 g 138/84 mm[Hg] [facility] 06/21/2023 10:07:20 Date Recorded Body height Body mass index (BMI) Body weight Systolic And Diastolic Provider Name and Address Organization Details Last Updated DateTime 09/20/2023 154.94 cm 41 kg/m2 94779.54 g 134/82 mm[Hg] [facility] 09/20/2023 10:22:32 Date Recorded Body height Body mass index (BMI) Body weight Systolic And Diastolic Provider Name and Address Organization Details Last Updated DateTime 05/03/2023 154.94 cm 41 kg/m2 47958.54 g 140/80 mm[Hg] Maritza Hanna [facility] 05/03/2023 11:20:10 Social History None recorded. Functional [...] ICD10 Code Diagnosis IMO Codes Diagnosis Note [id number] QM_[place] [address] 09/14/2016 19:30:45 09/14/2016 19:30:45 [id number] PRECIOUS CHAUDHRY MD NEUROSURG [facility] [address] [place] [address] 04/14/2023 10:51:21 04/16/2023 04:19:26 Lumbar radiculopathy [id number] M54.16 I would like to go ahead [...] She is happy with the management plan. [id number] PRECIOUS CHAUDHRY MD NEUROSURG [facility] [address] [place] [address] 05/03/2023 10:55:52 05/04/2023 05:07:20 Lumbar radiculopathy [id number] M54.16 I discussed her radiograph ic findings. [...] She is happy with the management plan. [id number] PRECIOUS CHAUDHRY MD SURGERY SCHEDULE [address] [place] [address] 05/18/2023 08:36:56 05/26/2023 12:56:40 [id number] PRECIOUS CHAUDHRY MD NEUROSURG [facility] [address] [place] [phone] 05/31/2023 13:03:03 06/04/2023 04:52:52 Postoperative care [id number] Z48.89 [id number] PRECIOUS CHAUDHRY MD NEUROSURG [facility] [address] [place] [phone] 06/21/2023 09:48:31 06/22/2023 04:46:17 Postoperative care [id number] Z48.89 Patient has done fantastic. I am very pleased with her results. She inquired about aqua therapy and I think this would be excellent for her. I would like to continue to follow her for 3 months and see her back with x-rays. She knows to contact us sooner if any new issues should arise. [id number] PRECIOUS CHAUDHRY MD NEUROSURG [facility] [address] [place] [address] 09/20/2023 09:33:02 09/21/2023 04:44:08 Lumbar spondylosis [id number] M47.896 I discussed the radiograph ic findings. [...] ID Guarantor Name 09/17/2023 1 [place] [id number] Dagmar Leong [id number] Dagmar Leong Notes Date Note Type [...] acute L5 compression fracture PRECIOUS CHAUDHRY MD [facility] [place], [address], [facility] 05/03/2023 13:02:14 06/21/2023 text/html ROS as noted [...] intact hardware good alignment PRECIOUS CHAUDHRY MD [facility] [place], [address], [facility] 06/21/2023 12:50:04 09/20/2023 text/html ROS as noted in the [facility] Patient is a 63-year-old woman here today [...] demonstrate intact hardware alignment PRECIOUS CHAUDHRY MD [address] [place] [address], [phone], [facility] 09/20/2023 12:52:21 OBGyn Episode No OBEpisode recorded.
--- OUTSIDE RECORDS SUMMARY | 2025-04-10 09:51 | XMS_ITS | Clinical Summary ---
Author Organization [facility] Address [address] [place] [address] Care Team Providers Care Piercer Operator Name Role Phone System, Provider Not In [...] 06/28/2021, 04/24/2021 Medical Devices Implanted Type Area Fourdrinier Operator Device Identifier Shelf Expiration Date Model / Serial / Lot Stplln Peristrip Dry Veritas Ech60 6fire - [id number] Implanted:Qty: 1 on 08/07/2016 by Chi Lan MD at [facility] Implant N/A: Stomach SYNOVIS [id number] 06/22/2019 [id number] / / [id number] 0226 Stplln Peristrip Dry Veritas Ech60 6fire - [id number] Implanted:Qty: 1 on 08/07/2016 by Chi Lan MD at [facility] Implant N/A: Stomach SYNOVIS [id number] 06/22/2019 [id number] / / [id number] Stplln Peristrip Dry Veritas Ech60 6fire - [id number] Implanted:Qty: 1 on 08/07/2016 by Chi Lan MD at [facility] Implant N/A: Stomach SYNOVIS [id number] 06/22/2019 [id number] V / / [id number] Sealant Fibrin Tisseel Fz 10ml - [id number] - [id number] Implanted:Qty: 1 on 08/07/2016 by Chi Lan MD at [facility] Implant N/A: Stomach GARCIAON LICENSE OF [facility] [id number] 12/11/2017 [id number] / [id number] / [id number] Stem Fem/Hip Polarstem W/Colr Std Sz2 - [id number] Implanted:Qty: 1 on 11/19/2022 by Lorenzo Baldwin MD at [facility] Implant Left: Hip PRITCHETT AND NEPHEW 06/17/2029 [id number] / / [id number] Hd Fem/Hip Bioloxdelta R3 05/27 Sm 32mm Pls0 - [id number] Implanted:Qty: 1 on 11/19/2022 by Lorenzo Baldwin MD at [facility] Implant Left: Hip PRITCHETT AND NEPHEW 07/02/2032 [id number] / / [id number] Totl Hip Babatunde Pritchett Nephew - [id number] Implanted:Qty: 1 on 11/19/2022 by Lorenzo Baldwin MD at [facility] Implant Left: Hip PRITCHETT AND NEPHEW CAPHIPTOTA [id number] / / Dev Contrl Tiss Stratafix Symm Pds Plus Gerald Ct-1 45cm - [id number] Implanted:Qty: 1 on 11/19/2022 by Lorenzo Baldwin MD at [facility] Implant Left: Hip ETHICON DIV OF Stephanie AND J [id number] / / [id number] Dev Contrl Tiss Stratafix Spiral Mncryl Ud 3/0 Pls 60cm - [id number] Implanted:Qty: 1 on 11/19/2022 by Lorenzo Baldwin MD at [facility] Implant Left: Hip ETHICON ENDO SURGERY DIV OF Stephanie AND J [id number] / / [id number] Shll Acet R3 3h Std 48mm - [id number] Implanted:Qty: 1 on 11/19/2022 by Lorenzo Baldwin MD at [facility] Implant Left: Hip PRITCHETT AND NEPHEW 04/09/2032 [id number] / / [id number] Scrw Sph Hd Reflection 6.5x25mm - [id number] Implanted:Qty: 1 on 11/19/2022 by Lorenzo Baldwin MD at [facility] Implant Left: Hip PRITCHETT AND NEPHEW 06/22/2032 [id number] / / [id number] Liner Acet R3 Xlpe 0d 04e92cx - [id number] Implanted:Qty: 1 on 11/19/2022 by Lorenzo Baldwin MD at [facility] Implant Left: Hip PRITCHETT [employer] NEPHEW 07/10/2032 [id number] / / [id number] Insurance [employer] Advance Directives * CPR (Attempt to [...] 6:18 PM 08/09/2016 2:08 PM Care Teams Piercer Operator Relationship Specialty Start Date End Date System, [place] [address] PCP - General Family Medicine 08/21/22
== END 2025-04-09 23:59 ==
LOC: LAB.DROPOF 04-10 09:37
PROVIDERS: PCP Nurse Practitioner Family; Visit Provider Nurse Practitioner Family
DX: E03.9 Hypothyroidism, unspecified (principal); E16.2 Hypoglycemia, unspecified; G47.33 Obstructive sleep apnea (adult) (pediatric)
CPT/HCPCS: 80048; 84439; 84443